=== PATIENT | female | born 1945 | race Caucasian/White ===

== ENCOUNTER 2019-05-03 14:37 | Outpatient (CLI) | payer MEDICARE, OTHER, SELFPAY ==
--- NOTE | 2019-05-03 15:00 | US_ITS ---
WS: [id number] RENAL ULTRASOUND HISTORY: CHRONIC KIDNEY DISEASE STAGE 3 COMPARISON: 01/14/2019 TECHNIQUE: 2-D and color Doppler imaging of the kidney submitted. Right kidney: 12.8 cm x 4.5 cm x 6.7 cm. Normal size kidney. No significant cortical thinning. Exophytic low-attenuation mass from the lower p ole measures 2.2 x 2.1 x 3.5 cm. Probably a cyst but limited due to body habitus. Similar to the prio r study. Left kidney: 8.6 cm x 5.3 cm x 5.4 cm. Mild atrophy of the LEFT kidney with poor corticomedullary differentiation. Increased echogenicity of the kidney. Kidney is measuring smaller in size and the prior study. This may be technical and relat ed to the body habitus and poorly visualized kidney. Possible cortical cyst in the mid kidney measuri ng 1.3 x 1.8 x 1.8 cm. Aorta: Poorly visualized. Urinary Bladder: Normal distention. US/US renal BI* [id number] IMPRESSION: 1. Technically limited evaluation of the kidneys due to body habitus. 2. No hydronephrosis. 3. Mild atrophy of the LEFT kidney versus incomplete visualization of the enti re kidney. Atrophy appears new since 01/14/2019 therefore I suspect this may be due to difficulty obtaining accurate measurements. Alternatively mild chronic medical renal disease. 4. Bilateral renal masses likely cysts. No change.
== END 2019-05-03 14:38 | disposition home or self-care (01) ==
LOC: RAD 14:44
PROVIDERS: Family Provider Family Medicine; PCP Family Medicine; Visit Provider Internal Medicine Nephrology
DX: N18.3 Chronic kidney disease, stage 3 (moderate) (principal); N28.89 Other specified disorders of kidney and ureter; N26.1 Atrophy of kidney (terminal)
CPT/HCPCS: 76770

== ENCOUNTER 2020-02-11 13:25 | Outpatient (CLI) | payer MEDICARE, OTHER, SELFPAY ==
--- NOTE | 2020-02-11 13:42 | CT_ITS ---
WS: [id number] CT scan of the chest With IV contrast, CT scan of the abdomen and pelvis with IV contrast and oral contrast. Additional two-dimensional coronal and sagittal reconstruction was performed. 02/11/2020 Clinical Data: ENDOMETRIAL ADENOCARCINOMA Comparison: None. DLP: 2544.[address] scans at [facility] use at least one of these dose optimization techniques: automat ed exposure control; mA and/or kV adjustment per patient size (includes targeted exams where dose is matched to clinical indication); or iterative reconstruction. Findings: Chest: No nodules, masses or effusions are seen. The heart size is normal with no pericardial effusion. No pneumonia or pneumothorax is seen. The pulmonary vascularity is normal. The pulmonary arterial system and thoracic aorta demonstra te no abnormalities or dilatations. There is no axillary or significant mediastinal adenopathy. Moderate degenerative change of the thora cic vertebral bodies is present and there is no bony metastatic disease. Abdomen/pelvis: The liver, spleen, adrenal glands and pancreas are normal. There are clips in the gallbladder fossa f rom a cholecystectomy. The kidneys show equal bilateral contrast excretion with normal bilateral renal cortical cysts. No hy dronephrosis, masses or renal calculi are seen.. The abdominal aorta is normal in size. No appendicitis or diverticulitis is seen. The stomach shows numerous clips from gastric bypass surge ry. Oral contrast is in the stomach. Small bowel and colon, and there is no bowel dilatation. No abscess, adenopathy, ascites, mass, obstruction or free air is seen. The bladder is unremarkable. The uterus has fluid within the endometrium. No inguinal hernia is seen. There is minimal osteoarthritis of the lumbar vertebral bodies with degenerative disc narrowing at L5 -S1. No metastatic disease is seen. CT/CT chest abd pel w con* Impression: 1. Negative for acute intra-abdominal abnormalities. 2. Endometrium of the uterus shows fluid.
[2020-02-11] MEDS: iohexol 300 mg/mL 50 mL Btl PO (13:57)
[2020-02-11 14:59] LABS: Blood Urea Nitrogen 28 mg/dL (8-23)
== END 2020-02-11 13:26 | disposition home or self-care (01) ==
LOC: RADWPI 13:32
PROVIDERS: Radiology Diagnostic Radiology; PCP Family Medicine; Visit Provider Family Medicine
DX: C54.1 Malignant neoplasm of endometrium (principal)
CPT/HCPCS: 71260; 74177; 82565; 84520; Q9967

== ENCOUNTER 2020-04-01 17:43 | Emergency (ER) | payer MEDICARE, OTHER, SELFPAY ==
[2020-04-01 17:47] VITALS: BP 117/74; PULSE 76; RESP 18; TEMP 35.7; O2SAT 96; BMI 48.0
[2020-04-01 20:49] LABS: Basophils % 0.1 %; Eosinophils # 0.2 10^3/uL (0.0-0.8); Eosinophils % 1.3 %; Hemoglobin 13.4 g/dL (11.5-15.3); Lymphocytes # 1.6 10^3/uL (0.8-4.8); Lymphocytes % 11.6 %; Mean Corpuscular HGB Conc 32.7 g/dL (30.0-36.0); Mean Corpuscular Hemoglobin 30.7 pg (28.0-34.0); Mean Platelet Volume 10.2 fL (7.4-10.4); Monocytes # 0.8 10^3/uL (0.2-0.9); Monocytes % 6.1 %; Neutrophils # 10.92 10^3/uL (1.8-7.7); Neutrophils % 80.5 %; Nucleated Red Blood Cells % 0 %; Platelet Count 201 10^3/cmm (130-400); Red Blood Count 4.36 10^6/uL (4.1-5.3); Red Cell Distribution Width 12.7 % (12.1-15.1); White Blood Count 13.6 10^3/uL (4.0-10.0)
[2020-04-01 21:10] LABS: Alanine Aminotransferase 70 U/L (0-33); Albumin Level 3.4 g/dL (3.5-5.2); Alkaline Phosphatase 90 IU/L (35-105); Anion Gap 11.6 (5-19); Aspartate Amino Transferase 59 U/L (0-32); Blood Urea Nitrogen 43 mg/dL (8-23); Calcium 8.9 mg/dL (8.5-10.5); Carbon Dioxide 28 mmol/L (22-29); Chloride 98 mmol/L (98-107); Glucose 162 mg/dL (65-115); Lipase 12 U/L (13-60); Osmolality Calculated 292 mOsm/kg (285-295); Potassium 3.6 mmol/L (3.5-5.1); Sodium 134 mmol/L (136-145); Total Bilirubin 0.7 mg/dL (0.15-1.2); Total Protein 6.4 g/dL (6.6-8.7)
[2020-04-01 22:53] VITALS: BP 157/97; PULSE 75; RESP 16; TEMP 36.6; O2SAT 95
--- NOTE | 2020-04-01 22:53 | CTR_ITS ---
PROCEDURE INFORMATION: Exam: CT Abdomen And Pelvis With Contrast Exam date and time: 04/01/2020 11:30 PM Age: 74 years old Clinical indication: Abdominal pain; Localized; Right lower quadrant (rlq); Prior surgery; Surgery date: 3-7 days post-operative; Surgery type: Hyst 03/28, appy, stomach, gb; Patient HX: C/O rlq pain w constipation and nausea S/P hyst 03/28 TECHNIQUE: Imaging protocol: Computed tomography of the abdomen and pelvis with intravenous contrast. Radiation optimization: All CT scans at this facility use at least one of these dose optimization techniques: automated exposure control; mA and/or kV adjustment per patient size (includes targeted exams where dose is matched to clinical indication); or iterative reconstruction. Contrast material: VISI 320; Contrast volume: 95 ml; Contrast route: INTRAVENOUS (IV); COMPARISON: CT chest abd pel w con* 02/11/2020 3:05 PM RADIATION DOSE METRICS: Total DLP (mGy-cm): 1910.6 FINDINGS: Liver: Normal. No mass. Gallbladder and bile ducts: Status post cholecystectomy. Pancreas: Normal. No ductal dilation. Spleen: Normal. No splenomegaly. Adrenal glands: Normal. No mass. Kidneys and ureters: There are stable bilateral renal cysts present, the largest seen in the lower pole of the right kidney measuring 2.3 cm. Stomach and bowel: Status post gastric surgery. There are some hazy opacity seen surrounding the distal descending and proximal sigmoid colon, findings could represent colitis. Appendix: Status post appendectomy. Intraperitoneal space: There is some free intra-abdominal air present compatible with postoperative change. Vasculature: Unremarkable. No abdominal aortic aneurysm. Lymph nodes: Unremarkable. No enlarged lymph nodes. Urinary bladder: Unremarkable as visualized. Reproductive: The patient is status post recent hysterectomy. Bones/joints: Unremarkable. No acute fracture. Soft tissues: There are diffuse strandy and hazy opacities and gas densities seen in the subcutaneous fat and fascia of the lower anterior abdominal wall compatible with postoperative changes. Moderate subcutaneous emphysema seen within the left anterior , lateral and posterior subcutaneous tissues compatible with postoperative change. CT/CT abdomen pelvis w con* [id number] IMPRESSION: 1. Strandy and hazy opacities are seen in the subcutaneous fat and fascia of the anterior abdominal wall on the right with scattered at gas density seen. Prominent subcutaneous emphysema seen in the left anterior, lateral posterior abdominal wall compatible with postoperative changes as well. 2. There is some free intra-abdominal air present compatible with postoperative change. 3. Hazy opacities are seen surrounding the distal descending and proximal sigmoid colon, findings could represent mild colitis. 4. There are stable bilateral renal cysts, the largest is seen in the right kidney measuring 2.3 cm. No further workup needed. Radiation Dose CTDIVOL = (mGy): DLP = 1910.6 (mGy-cm)
[2020-04-01 22:58] VITALS: BP 157/97; PULSE 75; RESP 18; O2SAT 94
--- NOTE | 2020-04-01 23:02 | W.ED.ABDPA2 ---
HPI - Abdominal Pain General: Chief Complaint: Abdominal Pain Stated Complaint: BOWEL MOVEMENT ISSUES, POST-SURGERY RELATED Time Seen by Provider: 04/01/20 22:47 Source: patient Mode of arrival: ambulatory Limitations: no limitations History of Present Illness: HPI narrative: Mrs. Garcia is a very nice 74-year-old female who comes in complaining of abdominal pain. She had a hysterectomy performed on the of this month by Dr. Martínez at [facility] in [place]. Since that time she has only had 1 small bowel movement. She is nauseated and feels like she can throw up but does not. She denies any fevers or chills. She denies any urinary symptoms. She denies any other complaints or concerns. She unaware of anything that makes her symptoms better or worse. She states that she just feels constipated. She is afraid that this may be a complication of her pain medications that she is taking. She states otherwise she is feeling well without fever or chills. She has not had any urinary symptoms. She states she is feeling fine otherwise. Associated Symptoms: Reports nausea; Denies chills, coffee ground emesis, constipation, GI cramping, diarrhea, dysuria, fever(s), heartburn, hematochezia, hematuria, hematemesis, melena, syncope and vomiting Review of Systems Const: Denies: fever(s), chills, body aches, fatigue, malaise or diaphoresis Eyes: Denies: change in vision, blurry vision, photophobia, eye discomfort, eye discharge, eye redness or yellow eyes ENMT: Denies: throat pain, odynophagia, hoarseness, swelling of lips/tongue, ear or mastoid pain, ear discharge, change in hearing or nasal discharge Card: Denies: chest pain, palpitations, irregular heart rhythm, edema, lightheadedness, syncope, pre-syncope, dyspnea on exertion or orthopnea Resp: Denies: dyspnea, productive cough, non-productive cough, wheezing, hemoptysis or chest congestion GI: Reports: abdominal pain and nausea; Denies: vomiting, hematemesis, coffee ground emesis, heartburn, diarrhea, constipation, GI cramping, hematochezia or melena : Denies: flank pain, dysuria, urinary frequency, urinary urgency or hematuria Musc: Denies: neck pain, back pain, extremity pain, extremity swelling, joint pain, joint swelling, joint redness, joint warmth or joint stiffness Skin/Breast: Denies: rash, pruritus, erythema, skin pain or skin tenderness Neuro: Denies: headache(s), numbness in extremities, weakness in extremities, sensory changes, lack of coordination, difficulty walking, dizziness, vertigo, confusion, Slurred speech present or seizure-like activity Pedrito/Lymph: Denies: easy bruising, easy bleeding, petechiae, purpura or enlarged lymph nodes All/Imm: Denies: urticaria, throat swelling, tongue swelling, facial swelling or acute wheezing Physical Exam Const: COMMON NORMALS: no acute distress, patient oriented x3, no limitations and alert GENERAL APPEARANCE: cooperative HENMT: COMMON NORMALS: normocephalic, atraumatic, external ears normal, EAC's normal and Normal external nose present HEAD & SCALP: normal to inspection, normocephalic and atraumatic FACE & SINUS: normal facial exam and face symmetric NOSE: Normal external nose present and Normal nares present EXTERNAL EAR: Yes external ears normal EXTERNAL AUDITORY CANAL: EAC's normal MOUTH: Normal oral and palatal mucosa present, lip normal and tongue normal Eye: COMMON NORMALS: Equal, round and reactive pupils present and conjunctivae normal GENERAL EYE: appearance normal, both eyes and all related structures ALIGNMENT: Yes alignment normal PERIORBITAL: periorbital findings normal EYELID: eyelids normal CONJUNCTIVA: Yes conjunctivae normal SCLERA: sclerae normal PUPIL: Yes Equal, round and reactive pupils present Neck/C-Spine: COMMON NORMALS: full ROM, no lymphadenopathy, supple, no meningeal signs and no JVD GENERAL: Yes normal visual inspection and Yes trachea midline Chest: COMMONS NORMALS: normal inspection of the chest and normal palpation of entire chest wall Resp: COMMON NORMALS: normal respiratory effort, No retractions, No use of accessory muscles and clear to auscultation bilaterally EFFORT & INSPECTION: Yes able to speak in complete sentences and Yes symmetric chest movement AUSCULTATION: clear to auscultation bilaterally, no crackles, no rales, no rhonchi and no wheezes Cardio: COMMON NORMALS: no JVD, regular rate, regular rhythm, S1 normal heart sound present and S2 normal heart sound present RATE: regular rate RHYTHM: regular rhythm HEART SOUNDS: S1 normal heart sound present, S2 normal heart sound present, no click, no gallops, no murmurs and no rubs GI: COMMON NORMALS: Soft to palpation and No hepatosplenomegaly present PALPATION: Yes Soft to palpation, Yes Tenderness to palpation present (GI) (Moderate diffusely), No Guarding due to palpation present (GI), No Rigid due to palpation, Yes No hepatosplenomegaly present, No Hernia present, No Palpable mass present and No Pulsatile mass present : COMMON NORMALS: Yes no CVA tenderness BLADDER/KIDNEY EXAM: Yes no CVA tenderness EXTERNAL FEMALE EXAM: No Hernia present Back/Pelvis: COMMON NORMALS: no CVA tenderness, thoracic and lumbar spine normal to inspection, no thoracic nor lumbar tenderness and thoraco-lumbar ROM normal Extremity: COMMON NORMALS: normal to inspection, full ROM, capillary refill normal, no joint enlargement, no clubbing, cyanosis or edema and no calf tenderness Neuro: COMMON NORMALS: patient oriented x3, CN's II-XII intact bilaterally, moves all extremities, no focal motor deficits and no sensory deficits noted SENSORIUM/ORIENTATION: Yes alert MENINGEAL SIGNS: Yes no meningeal signs SPEECH: speech normal Psych: COMMON NORMALS: mental status grossly normal, Normal thought process present, cooperative, normal affect, speech normal and activity/motor behavior normal SPEECH: Yes normal speech THOUGHT PROCESS: Normal thought process present Skin: COMMON NORMALS: no rashes or lesions noted, turgor normal, no jaundice, no petechiae and no mottling GENERAL SKIN EXAM: no rashes or lesions noted and turgor normal Course Vital Signs: Vital signs: Vital Signs Temperature 97.9 F 04/01/20 22:53 Pulse Rate 80 04/02/20 03:02 Respiratory Rate 16 04/02/20 03:02 Blood Pressure 134/51 04/02/20 03:02 Pulse Oximetry 98 04/02/20 03:02 MDM - Abdominal Pain MDM Narrative: Medical decision making narrative: Mrs. Garcia is a nice 74-year-old female who comes in complaining primarily of constipation. Her CT scan shows diffuse gas in the soft tissues and intra-abdominal he. This is consistent with previous surgery. There is no sign of necrotizing fasciitis. The patient's abdominal exam is benign. I did review the case with Dr. Gonzales, on-call for Dr. Martínez her partner. She states that all the findings as I have reviewed with her do not sound like an acute infection but likely just postoperative changes. She recommends treating the patient with antibiotics for colitis. We will go ahead and do this but nonetheless I have offered to keep the patient in the hospital to help with her bowels and to treat her colitis but she declines. She states she is feeling better and would like to go home. She asked something for a laxative but would like to go home. I did inform the patient about a severe infection like necrotizing fasciitis and although unlikely it is still a possibility but despite this risk the patient declines and would like to be discharged. She understands that she is welcome to return at any time. Lab Data: Attestation: I reviewed the patient's lab results. Labs: Lab Results 04/01/20 04/01/20 04/02/20 Range/Units 20:38 20:38 00:15 WBC 13.6 H (4.0-10.0) 10^3/ uL RBC 4.36 (4.1-5.3) 10^6/u L Hgb 13.4 (11.5-15.3) g/dL Hct 41.0 (37.0-47.0) % MCV 94.0 (81-99) fL MCH 30.7 (28.0-34.0) pg MCHC 32.7 (30.0-36.0) g/dL RDW 12.7 (12.1-15.1) % Plt Count 201 (130-400) 10^3/c mm MPV 10.2 (7.4-10.4) fL Neut % (Auto) 80.5 % Lymph % (Auto) 11.6 % Hughes % (Auto) 6.1 % Eos % (Auto) 1.3 % Baso % (Auto) 0.1 % Neut # (Auto) 10.92 H (1.8-7.7) 10^3/u L Lymph # (Auto) 1.6 (0.8-4.8) 10^3/u L Hughes # (Auto) 0.8 (0.2-0.9) 10^3/u L Eos # (Auto) 0.2 (0.0-0.8) 10^3/u L Baso # (Auto) 0.0 (0.0-0.1) 10^3/u L Nucleated RBC % (a uto) 0 % Nucleated RBCs # 0.0 /100WBC Sodium 134 L (136-145) mmol/L Potassium 3.6 (3.5-5.1) mmol/L Chloride 98 (98-107) mmol/L Carbon Dioxide 28 (22-29) mmol/L Anion Gap 11.6 (5-19) BUN 43 H (8-23) mg/dL Creatinine 1.4 H (0.5-0.9) mg/dL GFR Calculation Not Reportable Glucose 162 H (65-115) mg/dL Calculated Osmolal ity 292 (285-295) mOsm/k g Lactic Acid 0.8 (0.5-2.2) mmol/L Calcium 8.9 (8.5-10.5) mg/dL Total Bilirubin 0.7 (0.15-1.2) mg/dL AST 59 H (0-32) U/L ALT 70 H (0-33) U/L Alkaline Phosphata se 90 (35-105) IU/L Total Protein 6.4 L (6.6-8.7) g/dL Albumin 3.4 L (3.5-5.2) g/dL Globulin 3.0 (1.3-4.6) g/dL Lipase 12 L (13-60) U/L Urine Color (Yellow) Urine Appearance (CLEAR) Urine pH (5-7) Ur Specific Gravit y (1.005-1.030) Urine Protein (Negative) Urine Glucose (UA) (Normal) Urine Ketones (Negative) Urine Blood (Negative) Urine Nitrate (Negative) Urine Bilirubin (Negative) Urine Urobilinogen (Negative) mg/dL Ur Leukocyte Charity ase (Negative) Urine RBC (0-2) /hpf Urine WBC (0-5) /hpf Ur Squamous Epith Cells (0-5) /hpf Amorphous Sediment Urine Bacteria (NONE) /hpf 04/02/20 Range/Units 00:47 WBC (4.0-10.0) 10^3/ uL RBC (4.1-5.3) 10^6/u L Hgb (11.5-15.3) g/dL Hct (37.0-47.0) % MCV (81-99) fL MCH (28.0-34.0) pg MCHC (30.0-36.0) g/dL RDW (12.1-15.1) % Plt Count (130-400) 10^3/c mm MPV (7.4-10.4) fL Neut % (Auto) % Lymph % (Auto) % Hughes % (Auto) % Eos % (Auto) % Baso % (Auto) % Neut # (Auto) (1.8-7.7) 10^3/u L Lymph # (Auto) (0.8-4.8) 10^3/u L Hughes # (Auto) (0.2-0.9) 10^3/u L Eos # (Auto) (0.0-0.8) 10^3/u L Baso # (Auto) (0.0-0.1) 10^3/u L Nucleated RBC % (a uto) % Nucleated RBCs # /100WBC Sodium (136-145) mmol/L Potassium (3.5-5.1) mmol/L Chloride (98-107) mmol/L Carbon Dioxide (22-29) mmol/L Anion Gap (5-19) BUN (8-23) mg/dL Creatinine (0.5-0.9) mg/dL GFR Calculation Glucose (65-115) mg/dL Calculated Osmolal ity (285-295) mOsm/k g Lactic Acid (0.5-2.2) mmol/L Calcium (8.5-10.5) mg/dL Total Bilirubin (0.15-1.2) mg/dL AST (0-32) U/L ALT (0-33) U/L Alkaline Phosphata se (35-105) IU/L Total Protein (6.6-8.7) g/dL Albumin (3.5-5.2) g/dL Globulin (1.3-4.6) g/dL Lipase (13-60) U/L Urine Color Yellow (Yellow) Urine Appearance Clear (CLEAR) Urine pH 5 (5-7) Ur Specific Gravit y 1.000 L (1.005-1.030) Urine Protein Neg (Negative) Urine Glucose (UA) Norm (Normal) Urine Ketones Negative (Negative) Urine Blood 2+ H (Negative) Urine Nitrate Negative (Negative) Urine Bilirubin Neg (Negative) Urine Urobilinogen Norm (Negative) mg/dL Ur Leukocyte Charity ase Trace H (Negative) Urine RBC 0-4 H (0-2) /hpf Urine WBC 0-4 H (0-5) /hpf Ur Squamous Epith Cells 0-4 H (0-5) /hpf Amorphous Sediment Not Reportable Urine Bacteria Trace (NONE) /hpf Discharge Plan Discharge Patient Disposition: Home Clinical Impression: Colitis Condition: Stable Prescriptions: New cefdinir 300 mg capsule 300 mg PO Q12H 10 Days Qty: 20 RF: 0 Flagyl 500 mg tablet 500 mg PO TID 10 Days Qty: 30 RF: 0 Zofran 4 mg tablet 4 mg PO Q6H PRN (Reason: nausea and vomiting) Qty: 20 RF: 0 lactulose 10 gram/15 mL (15 mL) solution 10 g PO DAILY PRN (Reason: constipation) Qty: 600 RF: 0 Discharge Orders: Discharge ED (Routine); Ordered 04/02/20 Ordered By: Jo Méndez Referrals: Robert Perez MD [Primary Care Provider] - Discharge Diet: Advance as tolerated and Clear Liquid Discharge Activity: Increase activity as tolerated Patient Instructions: Infectious Colitis (ED) Activity Restrictions/Additional Instructions: Please return to the ER immediately for any of the signs or symptoms listed on your discharge instruction sheets, worsening/changing of your symptoms, you are not getting better as quickly as expected, or for ANY other cause or concerns. You have been offered further evaluation and care here for the abnormal CT findings but you have declined to stay. If your symptoms worsen at all, you develop vomiting, you develop a fever or you change your mind you are more than welcome to return at any time for further evaluation and care. Coding Level of Care Code ED [employer] for [employer] Fwd Exam Comprehensive
[2020-04-01] MEDS: metoclopramide 5 mg/mL SDV 2 mL 10 MG IV (23:27)
[2020-04-01 23:28] VITALS: RESP 16
[2020-04-01] MEDS: morphine 4 mg/mL SDV 1 mL IVP (23:28)
[2020-04-01] MEDS: iodixanol 320 mg/mL 100mL Btl IV (23:46)
[2020-04-02 00:01] VITALS: BP 91/76; PULSE 75; RESP 16; O2SAT 93
[2020-04-02 00:36] VITALS: BP 110/68; PULSE 76; RESP 16; O2SAT 95
[2020-04-02 00:52] LABS: Lactic Sepsis W/Reflex 0.8 mmol/L (0.5-2.2)
[2020-04-02] MEDS: cefTRIAXone 2,000 MG in sodium chloride 0.9% (plus) 50 ML 100 MG IV (00:55)
[2020-04-02 01:38] LABS: Add Urine Microscopic? YES; Bilirubin Urine Neg (Negative); Blood Urine 2+ (Negative); Glucose Urine UA Norm (Normal); Ketones Urine Negative (Negative); Leukocyte Esterase Urine Trace (Negative); Nitrate Urine Negative (Negative); Protein Urine Neg (Negative); Urine Appearance Clear (CLEAR); Urine Color Yellow (Yellow); Urobilinogen Urine Norm (Negative); pH Urine 5 (5-7)
[2020-04-02 01:41] LABS: Add Urine Culture? No; Bacteria Urine TRACE /hpf; RBC Urine 0-4 /hpf (0-2); Squamous Epithelial Cell Urine 0-4 /hpf (0-5); WBC Urine 0-4 /hpf (0-5)
[2020-04-02] MEDS: metroNIDAZOLE IV 500 MG/100 ML PREMIX 100 MG IV (01:50)
[2020-04-02] MEDS: lactulose oral liq 20 gm/30 mL UDC 10 GM PO (03:01)
[2020-04-02 03:02] VITALS: BP 134/51; PULSE 80; RESP 16; O2SAT 98
== END 2020-04-02 03:03 | disposition home or self-care (01) ==
PROVIDERS: Nurse Practitioner Family; Emergency Provider Emergency Medicine; PCP Family Medicine
DX: K52.9 Noninfective gastroenteritis and colitis, unspecified (principal)
CPT/HCPCS: 12345; 36415; 74177; 80053; 81001; 83605; 83690; 85025; 96365; 96375; 99282; 99284; J0696; J0743; J2270; J2765; Q9967; S0030

== ENCOUNTER 2020-04-20 14:22 | Outpatient (CLI) | payer MEDICARE, OTHER, SELFPAY ==
--- NOTE | 2020-04-20 16:19 | N.ONRAD NP_ITS ---
Radiation Oncology Consultation Patient Name: Archana Garcia Date of : 1945 Date of Service: 04/20/2020 Attending Physician: Julius Sorensen M.D. Archana Garcia was seen in consultation this afternoon at the request of Monica Myers M.D. for consideration of post-operative radiotherapy for the management of her uterine cancer. 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 A transabdominal and transvaginal ultrasonography completed on February 01, 2020 identified an anteverted uterus measuring 9.1 cm and an endometrial thickness of 22.5 mm. 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 A modified radical robotic hysterectomy with bilateral salpingo-oophorectomy and pelvic and retroperitoneal sentinel lymph node mapping/sampling was performed by Antonella Martínez D.O. at [facility] in [place], [place] on April 02, 2020. The pathology report was obtained from the outside hospital (and directly canvassed by me) confirmed a FIGO grade 2 endometrioid carcinoma (myometrial invasion depth of 9 mm with a myometrial thickness of 20 mm) with invasion of the cervical stroma and lymphovascular invasion present. Savery lymph node sampling harvested 3 pelvic lymph nodes without evidence of metastases (FIGO stage II; MMR nuclear expression intact). I reviewed with her the FIGO staging corresponding to her disease (FIGO stage II) and the National Comprehensive Cancer Network Guidelines recommending pelvic radiotherapy and vaginal brachytherapy. I also discussed the classic GOG 99 and PORTEC studies that demonstrated adjuvant pelvic radiotherapy in high-intermediate risk patients with endometrial cancer improved local regional control. PORTEC-2 trial was not characterized because the study did not include patients with cervical stromal invasion, nor was the preliminary results (abstract form only) of GOG 249 that identified an increase in pelvic yeimi failure vaginal cuff and chemotherapy arm versus pelvic radiotherapy alone. I would recommend a five week course of pelvic lymph node radiotherapy followed by vaginal brachytherapy. A computed tomographic radiotherapy planning scan with contrast in the treatment position will be required to identify the clinical tumor volumes. The potential toxicities of pelvic radiotherapy were reviewed. The patient has verbalized understanding would like to proceed as recommended. Signed by: Dr. Julius Sorensen 05/17/2020 9:54:08 AM
== END 2020-04-20 14:23 | disposition home or self-care (01) ==
LOC: ONCMED 14:31
PROVIDERS: PCP Family Medicine; Visit Provider Radiology Radiation Oncology
DX: C54.1 Malignant neoplasm of endometrium (principal)
CPT/HCPCS: 99205

== ENCOUNTER 2020-05-18 08:54 | Outpatient (RCR) | payer MEDICARE, OTHER, SELFPAY ==
--- NOTE | 2020-05-17 | CT_ITS ---
Radiation Therapy Planning CT images; total exam DLP: 1777.65 mGy-cm MTDD
== END 2020-05-25 11:00 | disposition home or self-care (01) ==
LOC: ONCMED 08:54
PROVIDERS: PCP Family Medicine; Visit Provider Radiology Radiation Oncology
DX: Z51.0 Encounter for antineoplastic radiation therapy (principal); C54.1 Malignant neoplasm of endometrium
CPT/HCPCS: 77300; 77301; 77334; 77338

== ENCOUNTER 2020-05-25 11:48 | Outpatient (CLI) | payer MEDICARE, OTHER, SELFPAY ==
--- NOTE | 2020-05-25 11:52 | MM_ITS ---
WS: [id number] BILATERAL SCREENING DIGITAL MAMMOGRAM WITH CAD HISTORY: SCREENING COMPARISON: 11/26/2017 Bilateral CC and MLO views submitted. Computer aided detection analyzed. Breast composition: There are scattered areas of fibroglandular density. No suspicious masses, microc alcifications or architectural distortion. Benign calcifications in each breast. Benign lymph node la teral LEFT breast. MM/[place] [id number] IMPRESSION: BI-RADS: 2-Benign FOLLOW UP: 1 Year Follow-up
== END 2020-05-25 11:49 | disposition home or self-care (01) ==
LOC: RADSHAW 11:49
PROVIDERS: PCP Family Medicine; Visit Provider Radiology Radiation Oncology
DX: Z12.31 Encounter for screening mammogram for malignant neoplasm of breast (principal)
CPT/HCPCS: 77067

== ENCOUNTER 2020-06-02 05:48 | Outpatient (RCR) | payer MEDICARE, OTHER, SELFPAY ==
--- NOTE | 2020-05-29 11:55 | ONCRAD TMN_ITS ---
Radiation Oncology Treatment Management Note Patient Name: Archana Garcia Date of : 1945 Date of Service: 05/29/2020 Attending Physician: Julius Sorensen M.D. 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 A modified radical robotic hysterectomy with bilateral salpingo-oophorectomy and pelvic/retroperitoneal sentinel lymph node mapping was performed in March 2020. The patient has received 1.8 Gy of a prescribed 45 Rao with an intensity modulated radiotherapy plan utilizing a step and shoot treatment technique. Tnno-[id number] brachytherapy will be administered subsequent to pelvic radiotherapy. Upon review of systems, she denied any gastrointestinal complaints related to radiotherapy. On physical examination, the patient weighed 282 lbs. Her temperature was 97.3 ???F with a blood pressure of 108/69 mmHg. Her pulse was 81 bpm and her respiratory rate was 18. No erythema within the treatment villagomez. Continue pelvic radiotherapy as prescribed. Signed by: Dr. Julius Sorensen 05/29/2020 11:55:00 AM
== END 2020-06-04 23:59 | disposition home or self-care (01) ==
LOC: ONCMED 05:48
PROVIDERS: PCP Family Medicine; Visit Provider Radiology Radiation Oncology
DX: Z51.0 Encounter for antineoplastic radiation therapy (principal); C54.1 Malignant neoplasm of endometrium
CPT/HCPCS: 77386

== ENCOUNTER 2020-06-27 05:43 | Outpatient (RCR) | payer MEDICARE, OTHER, SELFPAY ==
--- NOTE | 2020-06-06 15:44 | ONCRAD TMN_ITS ---
Radiation Oncology Weekly Treatment Management Patient: Jose Powers MR#: [id number] : 1945> Attending Physician: Dr. Angel May Date of Service: 06/06/2020 Referring Physician(s) : Diagnosis: C54.1 - Malignant neoplasm of endometrium, Diagnosed 01/2020 (Active) Stage II, II Radiotherapy to date: Course: Uterine 2020, Treatment Site: Uterine Ca, Ref. ID: [id number], Energy: 15X, Dose/Fx (cGy): 180, #Fx: , Dose Correction (cGy): 0, Total Dose (cGy): 1,260, Start Date: 05/29/2020, Elapsed Days: 8 Reason for visit: The patient is being seen today as part of their regularly scheduled weekly on treatment visits to assess for acute toxicities from radiotherapy. Review of Systems: Nauseated today with no emesis. She really tries to dring a lot of water which may be causing some of the nausea. She has ongoing urinary frequency with n burning. Significant diarrhea today 8 x alrady. No fever or chills. Vital Signs: Performed on 06/06/2020 3:17 PM BMI - 67.897 kg/m2 (high), Height - 54.00 in, Weight - 281.6 lbs, Temperature - 97.2 f, Pulse - 66, Respiration - 20, O2 Sat - 96 %, Pain - 0 and BP - 126/ 59 mm(hg)(/low). Physical Exam: omitted. Imaging: Radiation therapy imaging related to accurate target localization (i.e. KV, MV and CBCT) was reviewed. Appropriate changes, if any, were made to ensure treatment accuracy. Plan: Fair tolerance of RT. Maintain good hydration at a lower more tolerable level. Reduce fiber in diet add Imodium for control of diarrhea. Monitor status while on treatment for the remainder of the week. Signed by: Dr. Angel May 06/06/2020 3:44:33 PM
--- NOTE | 2020-06-14 15:40 | ONCRAD TMN_ITS ---
Radiation Oncology Treatment Management Note Patient Name: Archana Garcia Date of : 1945 Date of Service: 06/14/2020 Attending Physician: Julius Sorensen M.D. 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 A modified radical robotic hysterectomy with bilateral salpingo-oophorectomy and pelvic/retroperitoneal sentinel lymph node mapping was performed in March 2020. The patient has received 21.6 Gy of a prescribed 45 Rao with an intensity modulated radiotherapy plan utilizing a step and shoot treatment technique. [id number] brachytherapy will be administered subsequent to pelvic radiotherapy. Upon review of systems, she continues to have diarrhea and new onset dysuria. On physical examination, the patient weighed 282 lbs. Her temperature was 97.3 ???F with a blood pressure of 108/69 mmHg. Her pulse was 81 bpm and her respiratory rate was 18. No erythema within the treatment villagomez. Continue pelvic radiotherapy as prescribed. I will obtain a urinalysis because of the UTI symptoms and prescribe Lomotil for diarrhea. Signed by: Dr. Julius Sorensen 06/14/2020 3:38:26 PM
[2020-06-15 19:30] LABS: Add Urine Culture? No; Bacteria Urine 1+ /hpf; Bilirubin Urine Neg (Negative); Blood Urine Neg (Negative); Glucose Urine UA Norm (Normal); Ketones Urine Negative (Negative); Leukocyte Esterase Urine Negative (Negative); Nitrate Urine Negative (Negative); Protein Urine Neg (Negative); RBC Urine 0-4 /hpf (0-2); Specific Gravity, Urine 1.015 (1.005-1.030); Squamous Epithelial Cell Urine 25-40 /hpf (0-5); Urine Appearance Clear (CLEAR); Urine Color Yellow (Yellow); Urobilinogen Urine Norm (Negative); pH Urine 5 (5-7)
--- NOTE | 2020-06-20 15:34 | ONCRAD TMN_ITS ---
Radiation Oncology Treatment Management Note Patient Name: Archana Garcia Date of : 1945 Date of Service: 06/20/2020 Attending Physician: Julius Sorensen M.D. 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 A modified radical robotic hysterectomy with bilateral salpingo-oophorectomy and pelvic/retroperitoneal sentinel lymph node mapping was performed in March 2020. The patient has received 27 Gy of a prescribed 45 Rao with an intensity modulated radiotherapy plan utilizing a step and shoot treatment technique. Kpuc-jikp-[id number] brachytherapy has been completed. Upon review of systems, she described vaginal itching without discharge. On physical examination, the patient weighed 276 lbs. Her temperature was 97.3???F with a blood pressure of 105/54 mmHg. Her pulse was 58 bpm and her respiratory rate was 18. Perianal erythema was noted. Vaginal exam revealed pallor of the mucosa. No discharge present. Continue pelvic radiotherapy as planned. I will prescribe Metronidazole vaginal applicator for BV. Signed by: Dr. Julius Sorensen 06/20/2020 3:33:29 PM
--- NOTE | 2020-06-27 15:38 | ONCRAD TMN_ITS ---
Radiation Oncology Treatment Management Note Patient Name: Archana Garcia Date of : 1945 Date of Service: 06/27/2020 Attending Physician: Julius Sorensen M.D. 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 A modified radical robotic hysterectomy with bilateral salpingo-oophorectomy and pelvic/retroperitoneal sentinel lymph node mapping was performed in March 2020. The patient has received 36 Gy of a prescribed 45 Rao with an intensity modulated radiotherapy plan utilizing a step and shoot treatment technique. Itlq-gfam-[id number] brachytherapy has been completed. Upon review of systems, she described persistent diarrhea (failed Lomotil). On physical examination, the patient weighed 273 lbs. Her temperature was 97.6???F with a blood pressure of 110/58 mmHg. Her pulse was 62 bpm and her respiratory rate was 20. Perianal erythema was noted. Radiation therapy will be held in account of grade III diarrhea. Signed by: Dr. Julius Sorensen 06/27/2020 3:36:48 PM
== END 2020-06-28 21:00 | disposition home or self-care (01) ==
LOC: ONCMED 05:43
PROVIDERS: PCP Family Medicine; Visit Provider Radiology Radiation Oncology
DX: Z51.0 Encounter for antineoplastic radiation therapy (principal); C54.1 Malignant neoplasm of endometrium
CPT/HCPCS: 77336; 77386; 81001

== ENCOUNTER 2020-06-28 21:16 | Emergency (ER) | payer MEDICARE, OTHER, SELFPAY ==
[2020-06-28 21:23] VITALS: BP 155/64; PULSE 76; RESP 18; TEMP 36.8; O2SAT 96; BMI 46.3
[2020-06-28 21:39] LABS: Basophils % 0.3 %; Eosinophils # 0.1 10^3/uL (0.0-0.8); Hematocrit 37.5 % (37.0-47.0); Hemoglobin 13.1 g/dL (11.5-15.3); Lymphocytes # 0.4 10^3/uL (0.8-4.8); Lymphocytes % 4.2 %; Mean Corpuscular HGB Conc 34.9 g/dL (30.0-36.0); Mean Corpuscular Hemoglobin 31.6 pg (28.0-34.0); Mean Corpuscular Volume 90.4 fL (81-99); Mean Platelet Volume 9.7 fL (7.4-10.4); Monocytes # 0.8 10^3/uL (0.2-0.9); Monocytes % 8.8 %; Neutrophils # 7.87 10^3/uL (1.8-7.7); Neutrophils % 85.4 %; Nucleated Red Blood Cells % 0 %; Platelet Count 174 10^3/cmm (130-400); Red Blood Count 4.15 10^6/uL (4.1-5.3); Red Cell Distribution Width 12.4 % (12.1-15.1); White Blood Count 9.2 10^3/uL (4.0-10.0)
[2020-06-28] MEDS: ondansetron 2 mg/ML SDV 2 mL 4 MG IVP (21:52)
[2020-06-28 21:53] VITALS: RESP 20
[2020-06-28 21:53] LABS: Alanine Aminotransferase 14 U/L (0-33); Albumin Level 3.4 g/dL (3.5-5.2); Alkaline Phosphatase 55 IU/L (35-105); Anion Gap 14.2 (5-19); Aspartate Amino Transferase 17 U/L (0-32); Blood Urea Nitrogen 22 mg/dL (8-23); Calcium 8.6 mg/dL (8.5-10.5); Carbon Dioxide 23 mmol/L (22-29); Chloride 102 mmol/L (98-107); Globulin 3.2 g/dL (1.3-4.6); Glucose 136 mg/dL (65-115); Lipase 12 U/L (13-60); Magnesium 1.3 mg/dL (1.7-2.3); Osmolality Calculated 287 mOsm/kg (285-295); Potassium 3.2 mmol/L (3.5-5.1); Sodium 136 mmol/L (136-145); Total Bilirubin 0.9 mg/dL (0.15-1.2); Total Protein 6.6 g/dL (6.6-8.7)
[2020-06-28] MEDS: sodium chloride 0.9% 1,000 ML 999 ML IV (21:53)
[2020-06-28] MEDS: morphine 4 mg/mL SDV 1 mL IVP (21:53)
--- NOTE | 2020-06-28 23:23 | W.ED.NAVMDI ---
HPI - Nausea/Vomiting/Diarrhea General: Chief complaint: Nausea/Vomiting/Diarrhea Stated complaint: N/V, SEVERE ABD CRAMP, WEAK, SENT BY DR OWUSU Time Seen by Provider: 06/28/20 21:23 Source: patient and family Mode of arrival: wheelchair Limitations: physical limitation History of Present Illness: HPI Narrative: 74 yo female sent by Dr. Owusu with N/V/D. 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 She states she has been having cramping in her belly as well. She states this started with N/V but started having diarrhea today as well. MD elicited complaint: nausea, vomiting, diarrhea and abdominal pain Associated nausea: Yes Associated symtoms: Reports fatigue and nausea; Denies altered mental status, anxiety, bloating, chest pain, diaphoresis, dizziness, dysuria, headache(s), malaise, palpitations or syncope Review of Systems Const: Reports: body aches, change in appetite and fatigue; Denies: fever(s), chills, change in weight, malaise, night sweats or diaphoresis Card: Reports: dyspnea on exertion; Denies: chest pain, palpitations, irregular heart rhythm, edema, swelling of feet/ankles, lightheadedness, syncope, orthopnea, leg pain with exertion or acrocyanosis Resp: Denies: dyspnea, productive cough, wheezing, stridor, pain on inspiration, change in phlegm color, hemoptysis or chest congestion GI: Reports: abdominal pain, nausea, vomiting, diarrhea and GI cramping; Denies: hematemesis, coffee ground emesis, dysphagia, heartburn, early satiety, constipation or bloating : Reports: oliguria; Denies: flank pain, difficulty voiding, dysuria, urinary frequency, urinary urgency or urinary hesitancy Musc: Denies: neck pain, back pain or extremity pain Neuro: Reports: difficulty walking; Denies: headache(s), numbness in extremities, weakness in extremities, lack of coordination, frequent falls, dizziness, vertigo, confusion, behavioral changes, Slurred speech present, difficulty communicating thoughts or seizure-like activity Psych: Denies: anxiety or depression Physical Exam Const: COMMON NORMALS: no acute distress, average body habitus (obese), patient oriented x3, alert and well nourished EXAM LIMITATIONS: no altered mental status, no behavioral limitations and no language barrier GENERAL APPEARANCE: cooperative, well kempt, well developed and in distress (appears to be in pain); not comfortable, not anxious, not combative, not lethargic, not ill appearing and not diaphoretic NUTRITIONAL APPEARANCE: obese ORIENTATION/CONSCIOUSNESS: Yes awake, Yes oriented to person, Yes oriented to place and Yes oriented to time; not lethargic HENMT: COMMON NORMALS: normocephalic and atraumatic; oral mucous membranes not moist HEAD & SCALP: normal to inspection, normocephalic and atraumatic FACE & SINUS: normal facial exam GENERAL EAR: hearing not grossly impaired MOUTH: Normal oral and palatal mucosa present, tongue normal and moist mucous membranes abnormal (mildly dry oral mucosa) THROAT: posterior oropharynx normal and uvula midline Eye: COMMON NORMALS: Equal, round and reactive pupils present, EOMs intact bilaterally, conjunctivae normal and no scleral icterus GENERAL EYE: appearance normal, both eyes and all related structures CONJUNCTIVA: Yes conjunctivae normal PUPIL: Yes Equal, round and reactive pupils present Neck/C-Spine: COMMON NORMALS: full ROM, supple, no meningeal signs and no JVD GENERAL: Yes normal visual inspection and Yes trachea midline CERVICAL SPINE: Yes cervical ROM normal and No pain with cervical ROM Chest: CHEST: Yes Symmetrical chest wall rise Resp: COMMON NORMALS: normal respiratory effort, No retractions, No use of accessory muscles and clear to auscultation bilaterally EFFORT & INSPECTION: Yes able to speak in complete sentences, Yes symmetric chest movement, No respiratory distress, No decreased respiratory effort, No pursed lip breathing, No labored, No grunting, No stridor, No Actively coughing, No retractions and No uses accessory muscles AUSCULTATION: clear to auscultation bilaterally Cardio: COMMON NORMALS: no JVD, regular rate and regular rhythm JUGULAR VENOUS DISTENTION: no JVD RATE: regular rate RHYTHM: regular rhythm HEART SOUNDS: no murmurs GI: COMMON NORMALS: Soft to palpation INSPECTION: No abdominal wall ecchymosis, No Abdominal wall edema, No abdominal distension, No incision, Yes central obesity, No visible herniation and No GI erythema present AUSCULTATION: Yes normoactive bowel sounds PALPATION: Yes Soft to palpation and Yes Tenderness to palpation present (GI) Details: LLQ, RLQ and other (suprapubic) : COMMON NORMALS: Yes no CVA tenderness BLADDER/KIDNEY EXAM: Yes no CVA tenderness and No CVA tenderness Back/Pelvis: COMMON NORMALS: no CVA tenderness, thoracic and lumbar spine normal to inspection and no thoracic nor lumbar tenderness GENERAL BACK: No CVA tenderness, No erythema, No ecchymosis and No tenderness THORACIC SPINE/UPPER BACK: Yes normal to inspection, No thoracic spinal tenderness, No paraspinal muscle tenderness and No paraspinal muscle spasm LUMBAR SPINE/LOWER BACK: Yes normal to inspection, No pain with ROM, No lumbar spinal tenderness and No paraspinal muscle tenderness Extremity: COMMON NORMALS: normal to inspection, full ROM, capillary refill normal and no calf tenderness Neuro: COMMON NORMALS: patient oriented x3, moves all extremities and no focal motor deficits SENSORIUM/ORIENTATION: Yes alert, Yes oriented to person, Yes oriented to place, Yes oriented to time and No lethargic MENINGEAL SIGNS: Yes no meningeal signs SPEECH: speech normal Psych: COMMON NORMALS: mental status grossly normal, Normal thought process present, cooperative, normal affect, speech normal and activity/motor behavior normal APPEARANCE: Yes grossly normal and Yes well kempt ATTITUDE: Yes calm and Yes engaged ACTIVITY/MOTOR BEHAVIOR: Yes appropriate eye contact SPEECH: Yes normal speech THOUGHT PROCESS: Normal thought process present INSIGHT: Good insight present (Psych) JUDGEMENT: Good judgement present (Psych) Skin: COMMON NORMALS: no rashes or lesions noted and no wounds GENERAL SKIN EXAM: no rashes or lesions noted Course Vital Signs: Vital signs: Vital Signs Temperature 98.2 F 06/28/20 21:23 Pulse Rate 67 06/29/20 02:39 Respiratory Rate 20 H 06/29/20 02:39 Blood Pressure 112/76 06/29/20 02:39 Pulse Oximetry 96 06/29/20 02:39 MDM - Nausea/Vomiting/Diarrhea Lab Data: Labs: Lab Results 06/28/20 06/28/20 06/29/20 Range/Units 21:34 21:34 00:28 WBC 9.2 (4.0-10.0) 10^3/ uL RBC 4.15 (4.1-5.3) 10^6/u L Hgb 13.1 (11.5-15.3) g/dL Hct 37.5 (37.0-47.0) % MCV 90.4 (81-99) fL MCH 31.6 (28.0-34.0) pg MCHC 34.9 (30.0-36.0) g/dL RDW 12.4 (12.1-15.1) % Plt Count 174 (130-400) 10^3/c mm MPV 9.7 (7.4-10.4) fL Neut % (Auto) 85.4 % Lymph % (Auto) 4.2 % Bulloch % (Auto) 8.8 % Eos % (Auto) 1.0 % Baso % (Auto) 0.3 % Neut # (Auto) 7.87 H (1.8-7.7) 10^3/u L Lymph # (Auto) 0.4 L (0.8-4.8) 10^3/u L Bulloch # (Auto) 0.8 (0.2-0.9) 10^3/u L Eos # (Auto) 0.1 (0.0-0.8) 10^3/u L Baso # (Auto) 0.0 (0.0-0.1) 10^3/u L Nucleated RBC % (a uto) 0 % Nucleated RBCs # 0.0 /100WBC Sodium 136 (136-145) mmol/L Potassium 3.2 L (3.5-5.1) mmol/L Chloride 102 (98-107) mmol/L Carbon Dioxide 23 (22-29) mmol/L Anion Gap 14.2 (5-19) BUN 22 (8-23) mg/dL Creatinine 1.5 H (0.5-0.9) mg/dL GFR Calculation Not Reportable Glucose 136 H (65-115) mg/dL Calculated Osmolal ity 287 (285-295) mOsm/k g Calcium 8.6 (8.5-10.5) mg/dL Magnesium 1.3 L (1.7-2.3) mg/dL Total Bilirubin 0.9 (0.15-1.2) mg/dL AST 17 (0-32) U/L ALT 14 (0-33) U/L Alkaline Phosphata se 55 (35-105) IU/L Total Protein 6.6 (6.6-8.7) g/dL Albumin 3.4 L (3.5-5.2) g/dL Globulin 3.2 (1.3-4.6) g/dL Lipase 12 L (13-60) U/L Urine Color Yellow (Yellow) Urine Appearance Clear (CLEAR) Urine pH 5 (5-7) Ur Specific Gravit y 1.020 (1.005-1.030) Urine Protein Neg (Negative) Urine Glucose (UA) Norm (Normal) Urine Ketones Negative (Negative) Urine Blood Neg (Negative) Urine Nitrate Negative (Negative) Urine Bilirubin Neg (Negative) Urine Urobilinogen Norm (Negative) mg/dL Ur Leukocyte Charity ase Negative (Negative) Discharge Plan Discharge Patient Disposition: Home Clinical Impression: Dehydration, Hypokalemia, Hypomagnesemia Nausea & vomiting Qualifiers: Vomiting type: unspecified Vomiting Intractability: unspecified Qualified Code(s): R11.2 - Nausea with vomiting, unspecified Diarrhea Qualifiers: Diarrhea type: unspecified type Qualified Code(s): R19.7 - Diarrhea, unspecified Condition: Stable Prescriptions: New tramadol 50 mg tablet 50 mg PO Q6H PRN (Reason: pain) Qty: 10 RF: 0 No Action Zofran 4 mg tablet 4 mg PO Q6H PRN (Reason: nausea and vomiting) Qty: 20 RF: 0 lactulose 10 gram/15 mL (15 mL) solution 10 g PO DAILY PRN (Reason: constipation) Qty: 600 RF: 0 Discharge Orders: Discharge ED (Routine); Ordered 06/29/20 Ordered By: Joselito Whiteside Referrals: Robert Perez MD [Primary Care Provider] - Dawood Owusu MD [Hospitalist] - 1-3 days Discharge Diet: Advance as tolerated Discharge Activity: Increase activity as tolerated Patient Instructions: Opioid Safety Activity Restrictions/Additional Instructions: increase noncaffeine fluids Take your zofran as prescribed Follow up with your primary care provider and oncologist Coding Level of Care Code ED [employer] 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
[2020-06-28] MEDS: sodium chloride 0.9% 500 ML 999 ML IV (23:45)
[2020-06-28 23:48] VITALS: BP 100/57; PULSE 71; RESP 17; O2SAT 94
[2020-06-29] MEDS: potassium chloride ER 20 mEq Tablet 40 MEQ PO (00:11)
[2020-06-29 00:34] LABS: Add Urine Microscopic? NO
[2020-06-29 00:39] LABS: Bilirubin Urine Neg (Negative); Blood Urine Neg (Negative); Glucose Urine UA Norm (Normal); Ketones Urine Negative (Negative); Leukocyte Esterase Urine Negative (Negative); Nitrate Urine Negative (Negative); Protein Urine Neg (Negative); Urine Appearance Clear (CLEAR); Urine Color Yellow (Yellow); Urobilinogen Urine Norm (Negative); pH Urine 5 (5-7)
[2020-06-29 00:50] VITALS: BP 110/55; PULSE 80; RESP 18; O2SAT 93
[2020-06-29 02:20] VITALS: RESP 18; O2SAT 96
[2020-06-29] MEDS: ondansetron 2 mg/ML SDV 2 mL 4 MG IVP (02:20)
[2020-06-29] MEDS: morphine 4 mg/mL SDV 1 mL IVP (02:20)
[2020-06-29 02:39] VITALS: BP 112/76; PULSE 67; RESP 20; O2SAT 96
== END 2020-06-29 02:25 | disposition home or self-care (01) ==
PROVIDERS: Emergency Provider Emergency Medicine; PCP Family Medicine
DX: R11.2 Nausea with vomiting, unspecified (principal); R19.7 Diarrhea, unspecified; E86.0 Dehydration; E87.6 Hypokalemia; E83.42 Hypomagnesemia; Z79.899 Other long term (current) drug therapy
CPT/HCPCS: 80053; 81003; 83690; 83735; 85025; 96361; 96374; 96375; 96376; 99283; J2270; J2405; J3475; J7030; J7040

== ENCOUNTER 2020-07-05 05:40 | Outpatient (RCR) | payer MEDICARE, OTHER, SELFPAY ==
--- NOTE | 2020-07-04 15:32 | ONCRAD TMN_ITS ---
Radiation Oncology Treatment Management Note Patient Name: Archana Garcia Date of : 1945 Date of Service: 07/04/2020 Attending Physician: Julius Sorensen M.D. 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 A modified radical robotic hysterectomy with bilateral salpingo-oophorectomy and pelvic/retroperitoneal sentinel lymph node mapping was performed in March 2020. The patient has received 39.6 Gy of a prescribed 45 Rao with an intensity modulated radiotherapy plan utilizing a step and shoot treatment technique. [id number]-[id number] brachytherapy has been completed. Upon review of systems, she denied any gastrointestinal symptoms. On physical examination, the patient weighed 280 lbs. Her temperature was 98.8???F with a blood pressure of 112/52 mmHg. Her pulse was 53 bpm and her respiratory rate was 18. Continue pelvic radiotherapy as prescribed. Signed by: Dr. Julius Sorensen 07/04/2020 3:30:11 PM
== END 2020-07-05 23:59 | disposition home or self-care (01) ==
LOC: ONCMED 05:40
PROVIDERS: PCP Family Medicine; Visit Provider Radiology Radiation Oncology
DX: Z51.0 Encounter for antineoplastic radiation therapy (principal); C54.1 Malignant neoplasm of endometrium; Z90.710 Acquired absence of both cervix and uterus; Z90.722 Acquired absence of ovaries, bilateral
CPT/HCPCS: 77386

== ENCOUNTER 2020-08-04 05:53 | Outpatient (RCR) | payer MEDICARE, OTHER, SELFPAY ==
--- NOTE | 2020-08-04 11:45 | ONCRAD EPV_ITS ---
Radiation Oncology Follow-Up Note Patient Name: Archana Garcia Date of : 1945 Date of Service: 08/04/2020 Attending Physician: Julius Sorensen M.D. Archana Garcia returned to my office this morning for a routinely scheduled follow-up appointment. 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 A modified radical robotic hysterectomy with bilateral salpingo-oophorectomy and pelvic/retroperitoneal sentinel lymph node mapping was performed in March 2020. Pelvic radiotherapy was administered between the dates of May 29, 2020 through July 07, 2020. A prescribed dose of 50 Gy was delivered in 25 fractions encompassing 40 elapsed days. Upon review of systems, she described continued diarrhea. On physical examination, the patient weighed 273 lbs. Her temperature was 97.8 ???F with a blood pressure of 109/63 mmHg. The pulse was 67 bpm and her respiratory rate was 18 breaths per minute. In summary, Ms. Garcia returned for a routine post radiotherapy follow-up. I will refer her for a gastroenterology evaluation for persistent diarrhea. She will continue close observation with her gynecologic oncologist. Signed by: Dr. Julius Sorensen 08/04/2020 11:43:55 AM
== END 2020-08-04 23:59 | disposition home or self-care (01) ==
LOC: ONCMED 05:53
PROVIDERS: PCP Family Medicine; Visit Provider Radiology Radiation Oncology
DX: Z51.0 Encounter for antineoplastic radiation therapy (principal); C54.1 Malignant neoplasm of endometrium; Z79.899 Other long term (current) drug therapy
CPT/HCPCS: 77014; 77336; 77386; 77427; 99024

== ENCOUNTER 2020-12-06 09:57 | Outpatient (CLI) | payer MEDICARE, OTHER, SELFPAY ==
--- NOTE | 2020-12-06 10:04 | US_ITS ---
WS: [id number] RENAL ULTRASOUND HISTORY: RENAL CYST COMPARISON: 10/11/2019 TECHNIQUE: 2-D and color Doppler imaging of the kidney submitted. Right kidney: 9.6 cm x 4.8 cm x 4.6 cm. Normal echogenicity with no hydronephrosis or mass. No cyst is identified today. Left kidney: 10.4 cm x 4.6 cm x 5.5 cm. Normal size kidney. Exophytic cyst from the mid kidney measures 1.7 x 1.6 x 1.8 cm. Not significantly increased in size since the most recent examination. Aorta: Normal. Urinary Bladder: Normal distention. US/US renal BI* [id number] IMPRESSION: 1. Quality of examination is limited by body habitus. 2. LEFT renal cyst unchanged at 1.7 x 1.6 x 1.8 cm. 3. No RIGHT renal cyst identified.
== END 2020-12-06 09:58 | disposition home or self-care (01) ==
LOC: US 10:00
PROVIDERS: PCP Family Medicine; Visit Provider Family Medicine
DX: N28.1 Cyst of kidney, acquired (principal)
CPT/HCPCS: 76770

== ENCOUNTER 2022-01-17 14:11 | Outpatient (CLI) | payer MEDICARE, OTHER, SELFPAY ==
--- NOTE | 2022-01-17 14:27 | MM_ITS ---
WS: [id number] BILATERAL 3D TOMOSYNTHESIS DIGITAL SCREENING MAMMOGRAPHY WITH CAD CLINICAL INFORMATION: SCREEN HISTORY: Screening mammogram. No current complaints. COMPARISON: None. TECHNIQUE: Bilateral CC and MLO views. FINDINGS: Scattered fibroglandular densities bilaterally. No suspicious focal mass, asymmetry, calcifications, or architectural distortion. No evidence of malignancy. Punctate and lucent centered calcifications. MM/[place] [id number] IMPRESSION: BI-RADS: 2-Benign FOLLOW UP: 1 Year Follow-up Recommend return to annual screening mammography.
--- NOTE | 2022-01-17 14:49 | XR_ITS ---
WS: [id number] DEXA (DUAL ENERGY X-RAY ABSORPTIOMETRY) Bone mineral density was performed using a [employer] machine. HISTORY: POSTMENOPAUSAL COMPARISON: 11/26/2017 Lumbar spine BMD (L1-L4): 1.210 g/cm2 T score: 0.3 Z score: 0.8 Total hip BMD: Left: 0.908 g/cm2. T score: -0.8 Z score: 0.1 Right: 0.807 g/cm2. T score: -1.6 Z score: -0.7 10 year probability of a major osteoporotic fracture is 10.7%. Compared to the prior study from 11/26/2017. Lumbar spine bone mineral density has increased by 5.5%. Bilateral hips bone mineral density has decreased by 5.8%. XR/XR DEXA axial skeleton* [id number] IMPRESSION: OSTEOPENIA based upon the WHO classification for females. Significant decrease in bone mineral density within the hips since the prior st udy. Significant increase in bone mineral density within the lumbar spine since the prior study.
== END 2022-01-17 14:12 | disposition home or self-care (01) ==
LOC: RAD 14:11
PROVIDERS: PCP Family Medicine; Visit Provider Family Medicine
DX: Z12.31 Encounter for screening mammogram for malignant neoplasm of breast (principal); Z78.0 Asymptomatic menopausal state; M85.89 Other specified disorders of bone density and structure, multiple sites
CPT/HCPCS: 77063; 77067; 77080

== ENCOUNTER 2023-01-23 13:21 | Outpatient (CLI) | payer MEDICARE, OTHER, SELFPAY ==
--- NOTE | 2023-01-23 13:26 | MM_ITS ---
WS: [id number] SCREENING DIGITAL TOMOSYNTHESIS MAMMOGRAM WITH CAD HISTORY: SCREENING COMPARISON: 01/17/2022 and 05/25/2020 Bilateral CC and MLO with tomosynthesis views submitted. Synthetic mammography reviewed. Computer aid ed detection analyzed. Breast composition: There are scattered areas of fibroglandular density. No suspicious masses, microc alcifications or architectural distortion. Benign coarse calcifications in each breast. IMPRESSION: MM/[place] [id number] BI-RADS: 2-Benign FOLLOW UP: 1 Year Follow-up
== END 2023-01-23 13:22 | disposition home or self-care (01) ==
LOC: RAD 13:22
PROVIDERS: PCP Family Medicine; Visit Provider Family Medicine
DX: Z12.31 Encounter for screening mammogram for malignant neoplasm of breast (principal)
CPT/HCPCS: 77063; 77067

== ENCOUNTER 2023-03-21 13:32 | Outpatient (CLI) | payer MEDICARE, OTHER, SELFPAY ==
--- NOTE | 2023-03-21 13:38 | USCV_ITS ---
Archana Garcia Age: 77 Gender: F : 1945 Exam Date: 03/21/2023 14:27 Ordering Phys: Hari Castellon MD Technologist: Andres Jesus [place] [facility] [place]: [place] BP: 118 / 62 HR: 67 Rhythm: Sinus Technical Quality: Adequate MEASUREMENTS (Male / Female) Normal Values 2D ECHO LVOT Diameter 2.0 cm LV Ejection Fraction MOD 2C 67.9 % LV Ejection Fraction 2C AL 68.6 % LA Diameter 4.0 cm LA Width 3.3 cm LA Height 5.4 cm RA Width 3.4 cm RA Height 4.4 cm Aorta at Sinotubular Diameter 2.3 cm M-MODE Aortic Annulus Diameter 2.4 cm LA Ao Ratio MM 1.8 MV E Point Septal Separation 0.7 cm DOPPLER AV Peak Velocity 207.0 cm/s LVOT Peak Velocity 99.0 cm/s AV Area Cont Eq vti 1.8 cm squared AV Area Cont Eq pk 1.5 cm squared MV Peak Velocity 190.0 cm/s MV Area PHT 2.7 cm squared Mitral E to A Ratio 1.1 MV E' Velocity 44.0 cm/s Mitral E to MV E' Ratio 7.9 Mitral E to LV E' Lateral Ratio 7.2 Mitral E to LV E' Septal Ratio 8.7 TR Peak Velocity 318.2 cm/s TR Peak Gradient 40.5 mmHg TR Mean Velocity 240.2 cm/s TR Mean Gradient 24.8 mmHg TR Velocity Time Integral 84.8 cm Right Atrial Pressure 8.0 mmHg Pulmonary Artery Systolic Pressu 48.5 mmHg PV Peak Velocity 144.7 cm/s RV Acceleration Time 0.2 s RV Ejection Time 0.2 s RV AcT/ET 0.7 FINDINGS Left Ventricle Normal left ventricular size and systolic function, EF 69 %. Mild left ventricular hypertrophy. Grade III/IV diastolic dysfunction (restrictive filling pattern), severely elevated filling pressures. Right Ventricle The right ventricle is normal in size and function. Right Atrium The right atrium is normal in size. Left Atrium Mildly increased left atrial size. Mitral Valve Thickened mitral valve. Moderate mitral annular calcification. Trace mitral valve regurgitation. Aortic Valve Thickened aortic valve. Aortic valve sclerosis. Tricuspid Valve Trace to mild tricuspid valve regurgitation. Estimated pulmonary artery peak systolic pressure 49 mmHg Pulmonic Valve Trace pulmonary valve regurgitation. Pericardium Normal pericardium without effusion. Aorta Normal ascending aorta dimension. IVC Inferior vena cava not visualized. CONCLUSIONS Normal left ventricular size and systolic function, EF 69 %. Mild left ventricular hypertrophy. Grade III/IV diastolic dysfunction (restrictive filling pattern), severely elevated filling pressures. Mildly increased left atrial size. Thickened mitral valve. Moderate mitral annular calcification. Trace mitral valve regurgitation. Aortic valve sclerosis. Trace to mild tricuspid valve regurgitation. Estimated pulmonary artery peak systolic pressure 49 mmHg. There is no pericardial effusion. There are no intracardiac masses. Compared to the study from 04/29/2018, there may not be a significant change Dr Praveen Rocha MD FACC (Electronically Signed) Final Date: 22 March 2023 20:50 S
== END 2023-03-21 13:33 | disposition home or self-care (01) ==
LOC: RAD 13:32
PROVIDERS: PCP Family Medicine; Visit Provider Internal Medicine Cardiovascular Disease
DX: I48.0 Paroxysmal atrial fibrillation (principal); I10 Essential (primary) hypertension; R06.09 Other forms of dyspnea; I08.3 Combined rheumatic disorders of mitral, aortic and tricuspid valves
CPT/HCPCS: 93306

== ENCOUNTER 2023-03-24 12:05 | Emergency (ER) | payer MEDICARE, OTHER, SELFPAY ==
--- NOTE | 2023-03-24 12:07 | XR_ITS ---
WS: [id number] Portable AP upright chest, 03/24/2023 Clinical Data: cp Comparison: Two-view chest, 04/08/2018 Findings: No nodules, masses or effusions are seen. The heart is normal. The pulmonary vascularity is not increased. No pneumonia or pneumothorax is seen. The aortic arch and descending thoracic aorta s how tortuosity. There are surgical clips in the left upper quadrant. Impression: Atherosclerosis.
--- NOTE | 2023-03-24 12:12 | ECG_ITS ---
[facility] Test Date: 2023-03-24 Pat Name: Archana Garcia Department: Room: Gender: Female Outdoor Pursuits Instructor: : 1945 Requested By: Mohan Causey Order Number: [id number] Maxine MD: Praveen Rocha M.D. Measurements Intervals [place] Rate: 76 P: 0 [place]: 0 QRS: -60 QRSD: 119 T: 9 QT: 398 QTc: 448 Interpretive Statements ATRIAL FIBRILLATION WITH ABERRANT CONDUCTION OR VENTRICULAR PREMATURE COMPLEXES LEFT AXIS DEVIATION [QRS AXIS < -30] LOW QRS VOLTAGE IN PRECORDIAL LEADS [QRS DEFLECTION < 1.0 mV IN CHEST LEADS] RIGHT BUNDLE BRANCH BLOCK [120+ ms QRS DURATION, UPRIGHT V1, 40+ ms S IN I/aVL/V4/V5/V6] POSSIBLE ANTERIOR MYOCARDIAL INFARCTION , OF INDETERMINATE AGE [30 ms Q WAVE IN V3/V4, OR R < 0.2 mV IN V4] Compared to ECG 07/05/2015 03:42:22 Ventricular premature complex(es) now present.Aberrant conduction of supraventricular beat(s) now present.Left-axis deviation now present.Right bundle-branch block now present.Sinus bradycardia no longer present.Left anterior fascicular block no longer present.Myocardial infarct finding still present Electronically Signed On 03-24-2023 17:41:42 BILINGUAL SECRETARY by Praveen Rocha M.D. [id number]
[2023-03-24 12:18] VITALS: BP 141/70; PULSE 83; RESP 18; TEMP 36.7; O2SAT 95; BMI 48.0
[2023-03-24 12:31] VITALS: BP 127/76; PULSE 88; RESP 18; O2SAT 98
[2023-03-24 12:41] LABS: Basophils % 0.4 %; Eosinophils # 0.1 10^3/uL (0.0-0.8); Eosinophils % 0.6 %; Hematocrit 41.5 % (36-47); Lymphocytes # 1.4 10^3/uL (0.8-4.8); Lymphocytes % 17.5 %; Mean Corpuscular HGB Conc 32.5 g/dL (30-55); Mean Corpuscular Hemoglobin 31.4 pg (27-33); Mean Corpuscular Volume 96.5 fl (85-98); Mean Platelet Volume 9.6 fL (7.4-10.4); Monocytes # 0.6 10^3/uL (0.2-0.9); Monocytes % 6.9 %; Neutrophils % 74.2 %; Nucleated Red Blood Cells % 0 %; Platelet Count 210 10^3/cmm (157-399); Red Cell Distribution Width 11.9 % (12.1-15.1); White Blood Count 8.08 10^3/uL (3.29-11.43)
--- NOTE | 2023-03-24 13:02 | ED_ITS ---
HPI - SOB/Dyspnea 2 General: Chief Complaint: Shortness of Breath/Dyspnea Stated Complaint: chest pain Time Seen by Provider: 03/24/23 12:44 Source: patient Mode of arrival: ambulatory History of Present Illness: HPI Narrative: 77-year-old female who presents emergenc y room with a brief episode of chest discomfort epigastric radiating to the left side of the chest. She has had episodes like this in the past she has a known history of atrial fibrillation she currently is on Xarelto. No radiation of pain in the neck or arms she was briefly short of breath with this as well this is for the most part resolved at this point. She usually sees insurance account executive in [place] she denies any recent medication adjustments though she did recently have a echocardiogram. This was reviewed in the chart. MD elicited complaint: shortness of breath and cough Pertinent past history: congestive heart failure Associated symptoms: Deny abdominal pain, chest pain or fever(s) Review of Systems 2 Const: Denies: fever(s) or chills Card: Denies: chest pain Resp: Denies: dyspnea GI: Denies: abdominal pain : Denies: dysuria, urinary frequency or urinary urgency Musc: Denies: neck pain or back pain Skin/Breast: Denies: rash Physical Exam 2 Const: COMMON NORMALS: no acute distress GENERAL APPEARANCE: cooperative and comfortable ORIENTATION/CONSCIOUSNESS: Yes awake, Yes oriented to person, Yes oriented to place and Yes oriented to time HENMT: COMMON NORMALS: normocephalic, atraumatic and hearing grossly normal bilaterally HEAD & SCALP: normocephalic and atraumatic Resp: COMMON NORMALS: normal respiratory effort, No retractions, No use of accessory muscles and clear to auscultation bilaterally AUSCULTATION: clear to auscultation bilaterally Cardio: COMMON NORMALS: regular rate, regular rhythm and No murmurs present (Cardio) RATE: regular rate RHYTHM: regular rhythm GI: COMMON NORMALS: Soft to palpation and No hepatosplenomegaly present A USCULTATION: Yes normoactive bowel sounds PALPATION: Yes Soft to palpation, No Tenderness to palpation present (GI), No Guarding due to palpation present (GI) and Yes No hepatosplenomegaly present Extremity: COMMON NORMALS: normal to inspection, capillary refill normal, no clubbing, cyanosis or edema, no calf tenderness and no pedal edema Neuro: SENSORIUM/ORIENTATION: Yes oriented to person, Yes oriented to place and Yes oriented to time Skin: COMMON NORMALS: no rashes or lesions noted GENERAL SKIN EXAM: no rashes or lesions noted Course 2 Vital Signs: Vital signs: Vital Signs Temperature 98.0 F 03/24/23 12:18 Pulse Rate 78 03/24/23 14:27 Respiratory Rate 18 03/24/23 12:31 Blood Pressure 110/78 03/24/23 14:27 Pulse Oximetry 98 03/24/23 14:27 Oxygen Delivery Me thod Room Air 03/24/23 14:27 MDM - SOB/Dyspnea Medical Decision Making No evidence of acute coronary syndrome. EKG shows atrial fibrillation patient is not having any symptoms this time troponin is trending negative. She did recently have an echo that showed high normal ejection fraction with diastolic dysfunction. Suspect this may be related to some her symptoms as a possibility she is having episodes of poorly controlled atrial fibrillation rate. She did state that her insurance account executive had been wanting to get her Holter monitor. Will set her up for an outpatient Lexiscan sestamibi stress test also asked case management to look at getting her set up for the 24-hour Holter. Continue current medications follow-up with Dr. Perez her current her insurance account executive avoid any strenuous activity. No signs of PE or pneumonia at this time. Differential Diagnosis Likely congestive heart failure, community acquired pneumonia and pulmonary embolism Medical Records I reviewed the patient's medical records. Lab Data I reviewed the patient's lab results. 03/24/23 12:30 03/24/23 12:30 Labs/Radiology: Laboratory Results WBC 8.08 10^3/uL (3.29-11.43) 03/24/23 12:30 RBC 4.30 10^6/uL (3.85-5.65) 03/24/23 12:30 Hgb 13.50 g/dL (11.27-16.99) 03/24/23 12:30 Hct 41.5 % (36-47) 03/24/23 12:30 MCV 96.5 fl (85-98) 03/24/23 12:30 MCH 31.4 pg (27-33) 03/24/23 12:30 MCHC 32.5 g/dL (30-55) 03/24/23 12:30 RDW 11.9 % (12.1-15.1) L 03/24/23 12:30 Plt Count 210 10^3/cmm (157-399) 03/24/23 12:30 MPV 9.6 fL (7.4-10.4) 03/24/23 12:30 Neut % (Auto) 74.2 % 03/24/23 12:30 Lymph % (Auto) 17.5 % 03/24/23 12:30 [place] % (Auto) 6.9 % 03/24/23 12:30 Eos % (Auto) 0.6 % 03/24/23 12:30 Baso % (Auto) 0.4 % 03/24/23 12:30 Neut # (Auto) 6.00 10^3/uL (1.8-7.7) 03/24/23 12:30 Lymph # (Auto) 1.4 10^3/uL (0.8-4.8) 03/24/23 12:30 [place] # (Auto) 0.6 10^3/uL (0.2-0.9) 03/24/23 12:30 Eos # (Auto) 0.1 10^3/uL (0.0-0.8) 03/24/23 12:30 Baso # (Auto) 0.0 10^3/uL (0.0-0.1) 03/24/23 12:30 Nucleated RBC % (auto) 0 % 03/24/23 12:30 Nucleated RBCs # 0.0 /100WBC 03/24/23 12:30 Sodium 138 mmol/L (136-145) 03/24/23 12:30 Potassium 4.4 mmol/L (3.5-5.1) 03/24/23 12:30 Chloride 101 mmol/L (98-107) 03/24/23 12:30 Carbon Dioxide 28 mmol/L (22-29) 03/24/23 12:30 Anion Gap 13.4 (5-19) 03/24/23 12:30 BUN 25 mg/dL (8-23) H 03/24/23 12:30 Creatinine 1.5 mg/dL (0.5-0.9) H 03/24/23 12:30 GFR Calculation Not Reportable 03/24/23 12:30 Glucose 101 mg/dL (65-115) 03/24/23 12:30 Calculated Osmolality 291 mOsm/kg (285-295) 03/24/23 12:30 Calcium 9.6 mg/dL (8.5-10.5) 03/24/23 12:30 Total Bilirubin 1.0 mg/dL (0.15-1.2) 03/24/23 12:30 AST 15 U/L (0-32) 03/24/23 12:30 ALT 18 U/L (0-33) 03/24/23 12:30 Alkaline Phosphatase 70 U/L (35-105) 03/24/23 12:30 Troponin T Baseline 16 ng/L (0-10) H 03/24/23 12:30 Troponin T 120 Minute 14.60 ng/L (0-10) H 03/24/23 14:42 Delta Troponin T -1.40 ABS# (0-10) L 03/24/23 14:42 NT-Pro-B Natriuret Pep 1326 pg/mL (0-450) H 03/24/23 12:30 Total Protein 6.6 g/dL (6.6-8.7) 03/24/23 12:30 Albumin 4.1 g/dL (3.5-5.2) 03/24/23 12:30 Globulin 2.5 g/dL (1.3-4.6) 03/24/23 12:30 All radiology interpretation(s) finalized by discharge Discharge Plan Discharge Patient Disposition: Home Clinical Impression: Atypical chest pain, Atrial fibrillation, Diastolic dysfunction Condition: Stable Prescriptions: No Action losartan 50 mg tablet 50 mg PO BID furosemide 40 mg tablet 40 mg PO DAILY diltiazem HCl 240 mg capsule,extended release 24hr 240 mg PO DAILY simvastatin 10 mg tablet 10 mg PO DAILY Klor-Con M20 20 mEq tablet,ER particles/crystals 20 meq PO DAILY pantoprazole 40 mg tablet,delayed release (DR/EC) 40 mg PO DAILY ergocalciferol (vitamin D2) 1,250 mcg (50,000 unit) capsule 1,250 mcg PO Q7D Rx Instructions: ON FRIDAY colestipol 1 gram tablet 1 g PO BID escitalopram oxalate 10 mg tablet 10 mg PO DAILY Xarelto 15 mg tablet 15 mg PO DAILY acetaminophen 650 mg Tablet Extended Release 1,300 mg PO Q12H PRN (Reason: Pain) Discharge Orders: Discharge ED (Routine); Ordered 03/24/23 Ordered By: Tomas Darby Referrals: Robert Perez MD [Primary Care Provider] - Discharge Diet: Usual diet Discharge Activity: Increase activity as tolerated Patient Instructions: Opioid Safety, Pain Management Activity Restrictions/Additional Instructions: Thank you for choosing [facility] for your healthcare needs today. Please realize this is an emergency room and that we are providing you with a medical screening exam and this may not be complete and all inclusive of all the testing and or work up that you may need to determine your ailment or severity of your illness. It is very important that you follow up as instructed or that you return to the Emergency Department should you have concerns or if your condition changes or worsens in any way. Case management make arrangements for you to outpatient stress test. We also asked them to schedule a 24-hour Holter monitor. Follow-up with Dr. Perez or your insurance account executive. Coding Level of Care Code ED Lathe Spotter for Candy Short
[2023-03-24 13:06] LABS: Alanine Aminotransferase 18 U/L (0-33); Albumin Level 4.1 g/dL (3.5-5.2); Alkaline Phosphatase 70 U/L (35-105); Anion Gap 13.4 (5-19); Aspartate Amino Transferase 15 U/L (0-32); Blood Urea Nitrogen 25 mg/dL (8-23); Calcium 9.6 mg/dL (8.5-10.5); Carbon Dioxide 28 mmol/L (22-29); Chloride 101 mmol/L (98-107); Globulin 2.5 g/dL (1.3-4.6); Glucose 101 mg/dL (65-115); Osmolality Calculated 291 mOsm/kg (285-295); Potassium 4.4 mmol/L (3.5-5.1); Sodium 138 mmol/L (136-145); Total Protein 6.6 g/dL (6.6-8.7); Troponin(5th) Baseline 16 ng/L (0-10)
[2023-03-24 13:50] LABS: NT Pro B Type Natriuretic Pept 1326 pg/mL (0-450)
--- NOTE | 2023-03-24 14:19 | ECG_ITS ---
[facility] Test Date: 2023-03-24 Pat Name: Archana Garcia Department: Room: Gender: Female Sample Distributor: : 1945 Requested By: Mohan Causey Order Number: [id number] Maxine MD: Praveen Rocha M.D. Measurements Intervals [place] Rate: 68 P: 0 [place]: 0 QRS: -63 QRSD: 122 T: 23 QT: 409 QTc: 437 Interpretive Statements ATRIAL FIBRILLATION LEFT AXIS DEVIATION [QRS AXIS < -30] RIGHT BUNDLE BRANCH BLOCK [120+ ms QRS DURATION, UPRIGHT V1, 40+ ms S IN I/aVL/V4/V5/V6] Compared to ECG 03/24/2023 12:12:31 Ventricular premature complex(es) no longer present Aberrant conduction of supraventricular beat(s) no longer present Myocardial infarct finding no longer present Electronically Signed On 03-24-2023 17:49:42 SENIOR QUALITY ASSURANCE SPECIALIST by Praveen Rocha M.D. [id number]
[2023-03-24 14:27] VITALS: BP 110/78; PULSE 78; O2SAT 98
== END 2023-03-24 16:42 | disposition home or self-care (01) ==
PROVIDERS: Emergency Medicine; Emergency Provider Family Medicine; PCP Family Medicine
DX: R07.89 Other chest pain (principal); I48.91 Unspecified atrial fibrillation; I51.89 Other ill-defined heart diseases
CPT/HCPCS: 36415; 71045; 80053; 83880; 84484; 85025; 93005; 99285

== ENCOUNTER → 2023-04-15 09:44 | Outpatient (BNVA) | payer MEDICARE, OTHER, SELFPAY | PROVIDERS: PCP Family Medicine; Visit Provider Internal Medicine Cardiovascular Disease | DX: R07.9 Chest pain, unspecified (principal); I48.91 Unspecified atrial fibrillation; I48.92 Unspecified atrial flutter; I49.3 Ventricular premature depolarization | CPT/HCPCS: 93225 ==

== ENCOUNTER 2023-07-30 09:32 | Outpatient (RCR) | payer MEDICARE, OTHER, SELFPAY | END 2023-08-05 23:59 | disposition home or self-care (01) | LOC: SPT 09:32 | PROVIDERS: PCP Family Medicine; Visit Provider Anesthesiology | DX: M48.062 Spinal stenosis, lumbar region with neurogenic claudication (principal) | CPT/HCPCS: 97110; 97161 ==

== ENCOUNTER 2023-08-06 06:00 | Outpatient (RCR) | payer MEDICARE, OTHER, SELFPAY | END 2023-09-05 23:59 | disposition home or self-care (01) | LOC: SPT 06:00 | PROVIDERS: PCP Family Medicine; Visit Provider Anesthesiology | DX: M48.062 Spinal stenosis, lumbar region with neurogenic claudication (principal); M43.06 Spondylolysis, lumbar region; M54.16 Radiculopathy, lumbar region | CPT/HCPCS: 97110 ==

== ENCOUNTER 2023-09-06 06:00 | Outpatient (RCR) | payer MEDICARE, OTHER, SELFPAY | END 2023-10-05 23:59 | disposition home or self-care (01) | LOC: SPT 06:00 | PROVIDERS: PCP Family Medicine; Visit Provider Anesthesiology | DX: M43.06 Spondylolysis, lumbar region (principal); M54.16 Radiculopathy, lumbar region; M48.062 Spinal stenosis, lumbar region with neurogenic claudication | CPT/HCPCS: 97110 ==

== ENCOUNTER 2023-10-06 06:00 | Outpatient (RCR) | payer MEDICARE, OTHER, SELFPAY | END 2023-11-05 23:59 | disposition home or self-care (01) | LOC: SPT 06:00 | PROVIDERS: PCP Family Medicine; Visit Provider Anesthesiology | DX: M43.06 Spondylolysis, lumbar region (principal); M48.062 Spinal stenosis, lumbar region with neurogenic claudication; M54.16 Radiculopathy, lumbar region | CPT/HCPCS: 97110; G0283 ==

== ENCOUNTER 2024-01-29 12:18 | Outpatient (CLI) | payer MEDICARE, OTHER, SELFPAY ==
--- NOTE | 2024-01-29 12:21 | MM_ITS ---
WS: [id number] VIEWS: MLO and CC views both breasts. 3D digital tomosynthesis is also included in this exam. Comparison made with prior exam of 05/29/2017, 01/17/2022 and 01/23/2023.. Findings: There are scattered areas of fibroglandular density. No sign of mass, tumor calcification or architectural distortion. MM/MM scr BI tomosynthesis [id number] Impression: BI-RADS: 2 - Benign FOLLOW-UP: 1 Year Follow-up This mammogram was also analyzed by the Computer Aided Detection System R2 Imag e Programmer Analyst.
== END 2024-01-29 12:19 | disposition home or self-care (01) ==
LOC: RAD 12:19
PROVIDERS: PCP Family Medicine; Visit Provider Family Medicine
DX: Z12.31 Encounter for screening mammogram for malignant neoplasm of breast (principal); R92.323 Mammographic fibroglandular density, bilateral breasts
CPT/HCPCS: 77063; 77067

== ENCOUNTER → 2024-04-30 10:24 | Outpatient (BNVA) | payer MEDICARE, OTHER, SELFPAY | PROVIDERS: PCP Family Medicine; Visit Provider Internal Medicine | DX: R07.9 Chest pain, unspecified (principal) | CPT/HCPCS: 93005; 99204 ==

== ENCOUNTER 2025-01-06 15:44 | Inpatient (IN) | payer MEDICARE, OTHER, SELFPAY ==
[2025-01-06] VITALS (8 sets, daily range): BP systolic 100–126; BP diastolic 70–90; PULSE 68–92; RESP 20; TEMP 36.4; O2SAT 94–97; BMI 48.0
--- OUTSIDE RECORDS SUMMARY | 2025-01-06 14:30 | XMS_ITS | Encounter Summary ---
Author Organization [facility], [facility] Address [address] [facility] [address] [place] [address] Phone Care Team Providers Care Tank Charger Name Role Phone Robert Perez MD Primary Care Provider [phone] Reason for Visit * Reason Comments Chronic Kidney Disease Encounter Details Date Type Department Care Team (Late st Contact Info) Description 01/06/2025 2:30 PM CDT Office Visit [facility], [facility] [address] [place] [address] Randee Pires ELECTRIC STOVE MECHANIC [address] [facility] [address] [place] [address] Stage 3b chronic kidney disease (HCC) (Primary Dx) Social History Tobacco Use Types Packs/Day Years Used Date Smoking Tobacco: Never Smokeless Tobacco: Never Alcohol Use Standard Drinks/Week Comments Never 0 (1 standard drink = 0.6 oz pur e alcohol) AUDIT-C Answer Date Recorded Frequency of Alcohol Consumption Never 04/21/2019 Average Number of Drinks Not on file 020 Frequency of Binge Drinking Not on file 04/07 Comments Unknown Sex and Gender Information Value Date Recorded Sex Assigned at Not on file Legal Sex Female 10:06 AM EDT Gender Identity Not on file Sexual Orientation Not on file documented as of this encounter Last Filed Vital Signs Vital Sign Reading Time Taken Comments Blood Pressure 126/74 01/06/2025 2:27 PM CDT Pulse 102 01/06/2025 2:27 PM CDT Temperature - - Respiratory Rate - - Oxygen Saturation 95% 01/06/2025 2:27 PM CDT Inhaled Oxygen Concentration - - Weight 129 kg (284 lb 9.6 oz) 01/06/2025 2:27 PM CDT Height 162.6 cm (5' 4 ) 01/06/2025 2:27 PM CDT Body Mass Index 48.85 01/06/2025 2:27 PM CDT documented in this encounter Patient Instructions * Patient Instructions* Randee Pires NP - 01/06/2025 2:30 PM CDT No NSAIDS - Do not take non-steroidal anti-inflammatory medications (NSAIDS) such as Ibuprofen (Advil, Motrin, etc), Naproxen (Aleve, etc), Celecoxib (Celebrex) or Ketoprofen. These common arthritis medications can cause permanent kidney damage or worsen your kidney damage. For mild occasional pain, Acetaminophen (Tylenol, etc) is safe for your kidneys. No iodinated contrast - You should avoid contrast dye used in CT scans, Angiograms or other tests because this type of dye can injure your kidneys. Sometimes using that type of contrast dye is essential but in that instance be certain that your work station support specialist is contacted so that care can be taken toprotect your kidneys before the test is done. documented in this encounter Plan of Treatment Upcoming Encounters Date Type Department Care Team (Late st Contact Info) Description 07/04/2025 1:00 PM CDT Office Visit [facility], [facility] [address] [place] [id number] Randee Pires NP Counts include 234 beds at the [facility] [id number] Scheduled Orders Name Type Priority Associated Diagnoses Orde r Schedule Renal function panel Lab Routine Stage 3b chronic kidney disease (HCC) Expected: 07/07/2025 (Approximate), Expires: 02/06/2026 CBC Lab Routine Stage 3b chronic kidney disease (HCC) Expected: 07/07/2025, Expires: 02/06/2026 Urine albumin / creatinine ratio Lab Routine Stage 3b chronic kidney disease (HCC) Expected: 07/07/2025, Expires: 02/06/2026 PTH, intact Lab Routine Stage 3b chronic kidney disease (HCC) Expected: 07/07/2025, Expires: 02/06/2026 documented as of this encounter Visit Diagnoses Diagnosis Stage 3b chronic kidney disease (HCC)- Primary documented in this encounter Care Teams Tank Charger Relationship Specialty Start Date End Date Robert Perez MD [address] [place] [address] PCP - General Family Medicine 04/20/19 documented as of this encounter
--- OUTSIDE RECORDS SUMMARY | 2025-01-06 15:51 | XMS_ITS | Encounter Summary ---
Author Organization [facility], [facility] Address [address] [facility] [address] [place] [address] Phone Care Team Providers Care Transmitter Chief Name Role Phone Robert Perez MD Primary Care Provider [phone] Encounter Details Date Type Department Care Team (Late st Contact Info) Description 12/30/2024 Orders Only [facility], [address] [address] Randee Pires NP [address] [facility] [facility] [address] [place] [address] Stage 3b chronic kidney disease (HCC) Social History Tobacco Use Types Packs/Day Years [...] on file documented as of this encounter Plan of Treatment Upcoming Encounters Date Type Department Care Team (Late st Contact Info) Description 07/04/2025 1:00 PM CDT Office Visit [facility] [address] [address] Randee Pires NP [address] [facility] [address] [place] [address] documented as of this encounter Procedures Procedure Name Priority Date/Time Associated Diagnosis Comments URINE ALBUMIN / CREATININE RATIO Routine 12/21/2024 8:33 AM CDT Stage 3b chronic kidney disease (HCC) CBC Routine 12/21/2024 8:33 AM CDT Stage 3b chronic kidney disease (HCC) PTH, INTACT Routine 12/21/2024 8:33 AM CDT Stage 3b chronic kidney disease (HCC) RENAL FUNCTION PANEL Routine 12/21/2024 8:33 AM CDT Stage 3b chronic kidney disease (HCC) documented in this encounter Results * (ABNORMAL) PTH, intact (12/21/2024 8:33 AM CDT) Parathyroid Hormone, Intact 85(H) 16 - 77 pg/mL [facility] Comment: Interpretive Guide Intact PTH Calcium ------- Normal Parathyroid Normal Normal Hypoparathyroidism Low or Low Normal Low Hyperparathyroidism Primary Normal or High High Secondary High Normal or Low Tertiary High High Non-Parathyroid Hypercalcemia Low or Low Normal High Blood specimen (specimen) 12/21/2024 8:33 AM CDT 12/21/2024 8:33 AM CDT Narrative Resulting Agency Comment Performing Organization Information: Site ID: [place] Name: [facility] Address: [address] [place] [address] Director: Kristi Leonard MD us Randee Pires NP LAB BLOOD ORDERABLES Zoya thomas Result [address] [email or web address] [address] [place] [address] * Urine albumin / creatinine ratio (12/21/2024 8:33 AM CDT) Creatinine, Ur 141 20 - 275 mg/dL [facility] Urine Microalbumin 1.1 See Note: mg/dL [facility] Comment: Reference Range: Reference Range Not established Microalb/Creat Ratio 8 <30 mg/g creat [facility] Comment: The ADA defines abnormalities in albumin excretion as follows: Albuminuria Category Result (mg/g creatinine) Normal to Mildly increased <30 Moderately increased 30-299 Severely increased > OR = 300 The ADA recommends that at least two of three specimens collected within a 3-6 month period be abnormal before considering a patient to be within a diagnostic category. Urine specimen (specimen) 12/21/2024 8:33 AM CDT 12/21/2024 8:33 AM CDT Narrative Resulting Agency Comment Performing Organization Information: Site ID: [place] Name: [email or web address] Address: [address] [place] [id number] Director: Kristi Leonard MD Randee Pires TURRET PUNCH OPERATOR LAB URINE ORDERABLES Zoya l Result [facility] [address] [address] * CBC (12/21/2024 8:33 AM CDT) Pathologist [facility] WBC 10.1 3.8 - 10.8 Thousand/u L [facility] RBC 4.28 3.80 - 5.10 Million/uL [facility] Hemoglobin 13.4 11.7 - 15.5 g/dL [facility] Hematocrit 41.8 35.0 - 45.0 % [facility] MCV 97.7 80.0 - 100.0 fL [facility] MCH 31.3 27.0 - 33.0 pg [facility] MCHC 32.1 32.0 - 36.0 g/dL [facility] Comment: For adults, a slight decrease in the calculated MCHC value (in the range of 30 to 32 g/dL) is most likely not clinically significant; however, it should be interpreted with caution in correlation with other red cell parameters and the patient's clinical condition. RDW 11.9 11.0 - 15.0 % [facility] Platelets 237 140 - 400 Thousand/u L [facility] MPV 10.1 7.5 - 12.5 fL [facility] Blood specimen (specimen) 12/21/2024 8:33 AM CDT 12/21/2024 8:33 AM CDT Narrative Resulting Agency Comment Performing Organization Information: Site ID: [id number] Name: [facility] Address: [id number] [place] [address] Director: Kristi Leonard MD Randee Pires NP LAB BLOOD ORDERABLES Zoya l Result [facility] Jeff Fan [address] [facility] [place] [address] * (ABNORMAL) Renal function panel (12/21/2024 8:33 AM CDT) Glucose 142(H) 65 - 99 mg/dL [facility] Comment: Fasting reference interval For someone without known diabetes, a glucose value >125 mg/dL indicates that they may have diabetes and this should be confirmed with a follow-up test. BUN 37(H) 7 - 25 mg/dL [facility] Creatinine 1.46(H) 0.60 - 1.00 mg/dL [facility] eGFR CKD-EPI CR 2020 37(L) > OR = 60 mL/min/1.7 3m2 [facility] BUN/Creatinine Ratio 25(H) 6 - 22 (calc) [facility] Sodium 140 135 - 146 mmol/L [facility] Potassium 4.2 3.5 - 5.3 mmol/L [facility] Chloride 107 98 - 110 mmol/L [facility] Bicarbonate (CO2) 23 20 - 32 mmol/L [facility] Calcium 9.5 8.6 - 10.4 mg/dL [facility] Phosphorus 3.0 2.1 - 4.3 mg/dL [facility] Albumin 3.8 3.6 - 5.1 g/dL [facility] Blood specimen (specimen) 12/21/2024 8:33 AM CDT 12/21/2024 8:33 AM CDT Narrative Resulting Agency Comment Performing Organization Information: Site ID: [place] Name: [facility] Address: [address] [place] [address] Director: Kristi Leonard MD us Randee Pires TURRET PUNCH OPERATOR LAB BLOOD ORDERABLES Zoya l Result [facility] Fan [address] [place] [address] documented in this encounter Visit Diagnoses Diagnosis Stage 3b chronic kidney disease (HCC) documented in this encounter Care Teams Transmitter Chief Relationship Specialty Start Date End Date Robert Perez MD [address] [place] [address] PCP - General Family Medicine 04/20/19 documented as of this encounter
--- OUTSIDE RECORDS SUMMARY | 2025-01-06 15:51 | XMS_ITS | Encounter Summary ---
Author Organization [facility], [facility] Address [address] [address] Phone Care Team Providers Care Global Ceo Name Role Phone Robert Perez MD Primary Care Provider [phone] Encounter Details Date Type Department Care Team (Late st Contact Info) Description 01/19/2019 Orders Only [facility] [address] [address] Chronic kidney disease, stage 3 (moderate) (HCC) Social History Tobacco Use Types Packs/Day Years Used Date Smoking Tobacco: Never Assessed Comments Unknown Sex and Gender Information Value Date Recorded Sex Assigned at Not on file Legal Sex Female 10:06 AM EDT Gender Identity Not on file Sexual Orientation Not on file documented as of this encounter Plan of Treatment Upcoming Encounters Date Type Department Care Team (Late st Contact Info) Description 07/04/2025 1:00 PM CDT Office Visit [facility], [facility] [address] [place] [address] Randee Pires PATTERNMAKER APPRENTICE WOOD [address] [facility] [address] [place] [address] documented as of this encounter Visit Diagnoses Diagnosis Chronic kidney disease, stage 3 (moderate) documented in this encounter Care Teams Global Ceo Relationship Specialty Start Date End Date Robert Perez MD [address] [place] [address] PCP - General Family Medicine 04/20/19 documented as of this encounter
--- OUTSIDE RECORDS SUMMARY | 2025-01-06 15:51 | XMS_ITS | Clinical Summary ---
Author Organization [facility] Facility Address [address] [place] [address] Care Team Providers Care Waste Baler Name Role Phone Robert Perez MD Primary Care Provider [phone] Allergies Active Allergy Reactions Criticality Noted Date Comments Adhesive Tape 06/26/2022 Ciprofloxacin 10/19/2014 Other reaction(s): Unknown Latex Hives High 03/24/2023 Penicillins 10/19/2014 Other reaction(s): Unknown Medications * This document contains information received from the source organization and may not represent a complete record from that organization. rivaroxaban (XARELTO) 15 MG tablet Take 15 mg by mouth daily Active pantoprazole (PROTONIX) 40 MG EC tablet Take 40 mg by mouth daily Active dilTIAZem CD (CARDIZEM CD) 240 MG 24 hr capsule Take 240 mg by mouth daily 05/04/2018 Active acetaminophen (TYLENOL) 500 MG tablet Take 500 mg by mouth every 6 (six) hours if needed Active escitalopram (LEXAPRO) 10 MG tablet Take 10 mg by mouth 1 (one) time each day Active colestipol (COLESTID) 1 g tablet Take 1 g by mouth 2 (two) times a day 11/22/2020 Active simvastatin (ZOCOR) 10 MG tablet Take 10 mg by mouth 1 (one) time each day 10/03/2022 Active KLOR-CON 20 MEQ CR tablet Take 20 mEq by mouth 1 (one) time each day Active Empagliflozin (JARDIANCE PO) Take 10 mg by mouth 1 (one) time each day Active furosemide (LASIX) 20 MG tabletIndication s:Dyspnea on exertion Take 1 tablet (20 mg total) by mouth 1 (one) time each day Takes 20mg in AM 90 tablet 3 12/30/2023 Active losartan (COZAAR) 50 MG tablet TAKE 1 TABLET BY MOUTH TWICE A DAY 180 tablet 3 04/01/2024 Active ergocalciferol 1.25 MG (92214 UT) capsule Take 50,000 Units by mouth 1 (one) time per week 05/06/2024 Active Active Problems Problem Noted Date Diagnosed Date Adenocarcinoma of endometrium 03/28/2020 Body mass index 40+ - severely obese 02/23/2020 Dyspnea on exertion 09/16/2013 Paroxysmal atrial fibrillation 09/16/2013 Stage 3b chronic kidney disease Hypertension Gout Encounters Date Type Department Care Team Description 01/06/2025 2:30 PM CDT Office Visit [facility] [address] [place] [address] Randee Pires NP Stage 3b chronic kidney disease (HCC) (Primary Dx) 12/30/2024 Orders Only [facility] [address] [place] [address] Randee Pires NP Stage 3b chronic kidney disease (HCC) 12/27/2024 Telephone [facility] [address] [facility] [address] [place] [address] Flora Sorensen MD from Last 3 Months Immunizations Immunization Administration Dates Next Due Influenza (IM) Preservative Free 01/07/2019 Family History Medical History Relation Comments Heart disease Father Hypertension Father Kidney disease Father Heart disease Mother Relation Status Comments Father Mother Social History Tobacco Use Types Packs/Day Years Used Date Smoking Tobacco: Never Smokeless Tobacco: Never Tobacco Cessation:Counseling Given: Not Answered Alcohol Use Standard Drinks/Week Comments Never 0 [...] on file Sexual Orientation Not on file Last Filed Vital Signs Vital Sign Reading Time Taken Comments Blood Pressure 126/74 01/06/2025 2:27 PM CDT Pulse 102 01/06/2025 2:27 PM CDT Temperature 36.9 C (98.4 F) 11/10/2019 2:44 PM CDT Respiratory Rate - - Oxygen Saturation 95% 01/06/2025 2:27 PM CDT Inhaled Oxygen Concentration - - Weight 129 kg (284 lb 9.6 oz) 01/06/2025 2:27 PM CDT Height 162.6 cm (5' 4 ) 01/06/2025 2:27 PM CDT Body Mass Index 48.85 01/06/2025 2:27 PM CDT Plan of Treatment Upcoming Encounters Date Type Department Care Team (Late st Contact Info) Description 07/04/2025 1:00 PM CDT Office Visit [facility] [address] [place] [address] Randee Pires NP [address] [facility] [address] [place] [address] Health Maintenance Due Date Last Done Comments Pneumococcal Vaccine: 50+ Years (2 of 2 - PPSV23, PCV20, or PCV21) 12/31/2017 11/05/2017 Influenza Vaccine (#1) 2024 , 01/13/2023, 01/07/2019 Hepatitis B Vaccine Aged Out 07/09/1999, 08/23/1998, 03/16/1998 No longer eligible based on patient's age to complete this topic Pneumococcal Vaccine: Peds (0 to 5 Years) and At-Risk Patients (6 to 49 Years) Discontinued 11/05/2017 Procedures Procedure Name Priority Date/Time Associated Diagnosis Comments PTH, INTACT Routine 12/21/2024 8:33 AM CDT Stage 3b chronic kidney disease (HCC) URINE ALBUMIN / CREATININE RATIO Routine 12/21/2024 8:33 AM CDT Stage 3b chronic kidney disease (HCC) CBC Routine 12/21/2024 8:33 AM CDT Stage 3b chronic kidney disease (HCC) RENAL FUNCTION PANEL Routine 12/21/2024 8:33 AM CDT Stage 3b chronic kidney disease (HCC) from Last 3 Months Results * Urine albumin / creatinine ratio (12/21/2024 [...] Agency Comment Performing Organization Information: Site ID: [place] Name: [facility] Address: [address] [place] [address] Director: Kristi Leonard MD Randee Pires GENERAL ASSEMBLER INSTALLER LAB URINE ORDERABLES Zoya thomas Result [facility] [address] [place] [address] * CBC (12/21/2024 8:33 AM CDT) WBC 10.1 3.8 - 10.8 Thousand/u L [...] Performing Organization Information: Site ID: [id number] Name: [facility] Address: [address] [place] [address] Director: Kristi Leonard MD Randee Pires GENERAL ASSEMBLER INSTALLER LAB BLOOD ORDERABLES Zoya thomas Result [facility] [id number] [place] [phone] * (ABNORMAL) PTH, intact (12/21/2024 8:33 AM CDT) Parathyroid Hormone, Intact 85(H) 16 - 77 pg/mL [facility] Comment: Interpretive Guide Intact PTH Calcium ------- Normal Parathyroid Normal Normal Hypoparathyroidism Low or Low Normal Low Hyperparathyroidism Primary Normal or High High Secondary High Normal or Low Tertiary High High Non-Parathyroid Hypercalcemia Low or Low Normal High Blood specimen (specimen) 12/21/2024 8:33 AM CDT 12/21/2024 8:33 AM CDT Narrative Resulting Agency Comment Performing Organization Information: Site ID: [id number] Name: [facility] Address: [address] [place] [address] Director: Kristi Leonard MD Randee Pires GENERAL ASSEMBLER INSTALLER LAB BLOOD ORDERABLES Zoya l Result [facility] [address] [place] [address] * (ABNORMAL) Renal function panel (12/21/2024 8:33 [...] Agency Comment Performing Organization Information: Site ID: [place] Name: [facility] Address: [address] [place] [address] Director: Kristi Leonard MD Randee Pires GENERAL ASSEMBLER INSTALLER LAB BLOOD ORDERABLES Zoya l Result [facility] [address] [place] [id number] from Last 3 Months Insurance Medicare [employer] [id number] Care Teams Waste Baler Relationship Specialty Start Date End Date Robert Perez MD [address] [place] [address] PCP - General Family Medicine 04/20/19
--- OUTSIDE RECORDS SUMMARY | 2025-01-06 15:51 | XMS_ITS | Clinical Summary ---
[facility] Address [address] [facility] [place] [address] Care Team Providers Care Store Lead Name Role Phone Robert Perez MD Primary Care Provider [phone] Allergies Active Allergy Reactions Criticality Noted Date Comments Adhesive Tape-Silicones Rash 03/28/2020 Ciprofloxacin Shortness of Breath/Wheezing,Swel ling,Other (See Comments) 10/19/2014 Swelling around mouth & inside lips with blisters all around inside mouth Penicillins Rash 10/19/2014 Mild years ago can not remember any other details Medications pantoprazole (PROTONIX) 40 mg Tablet, Delayed Release (E.C.) Take 40 mg by mouth daily. Active losartan (COZAAR) 100 mg tablet Take 100 mg by mouth daily. Active simvastatin (ZOCOR) 10 mg tablet Take 10 mg by mouth Daily LATE. Active acetaminophen (TYLENOL) 500 mg tablet Take 500 mg by mouth every 6 hours as needed. Active rivaroxaban (XARELTO) 20 mg Tablet Take 20 mg by mouth daily. Active escitalopram oxalate (LEXAPRO) 10 mg tablet Take 10 mg by mouth daily. 02/13/2020 Active VENTOLIN HFA 90 mcg/actuation inhaler 03/30/2020 Active diltiaZEM (Cartia XT) 240 mg Controlled Delivery 24 hour capsule TAKE ONE CAPSULE BY MOUTH DAILY 90 Capsule 3 04/21/2020 Active chlorthalidone (HYGROTON) 25 mg tablet Take 1 tablet by mouth once daily 90 Tablet 3 06/26/2020 Active loperamide (IMODIUM) 2 mg capsule Take 2 mg by mouth every 3 hours as needed for Diarrhea/Loo se Stools. Active colestipoL (Colestid) 1 gram tablet Take 1 Tablet (1,000 mg) by mouth 2 times daily. 60 Tablet 11 09/21/2020 Active Active Problems Problem Noted Date Diagnosed Date Chronic diarrhea 09/21/2020 FIGO Stage II Grade 2 Endometrial adenocarcinoma 03/28/2020 Cancer Staging:Pathologic stage from 03/30/2020:FIGO Stage II(pT2, pN0(sn), cM0) - Signed by Amanda Kaye MD on 03/30/2020 Endometrial cancer determined by uterine biopsy 02/23/2020 Morbid obesity with body mass index of 40.0-49.9 02/23/2020 Near syncope 09/16/2013 Racing heart beat 09/16/2013 PAF (paroxysmal atrial fibrillation) 09/16/2013 HBP (high blood pressure) 09/16/2013 Chest discomfort 09/16/2013 LUNDBERG (dyspnea on exertion) 09/16/2013 Immunizations Immunization Administration Dates Next Due INFLUENZA VACCINE HIGH DOSE QUADRIVALENT 65 YR U P PF IM 01/06/2020 INFLUENZA VACCINE QUADRIVALE NT 6 MOS UP CELL DERIVED PF IM 01/07/2019 Influenza Vaccine Tri Split 4+ Pf Im 01/07/2019 Family History Medical History Relation Name Comments Breast Cancer Neg Hx Colon Cancer Neg Hx Ovarian Cancer Neg Hx Uterine Cancer Neg Hx Relation Name Status Comments Father heart disease. cabg. stents Mother Alive Sister 1 Alive Sister 2 Alive Social History Tobacco Use Types Packs/Day Years Used Date Smoking Tobacco: Never Smokeless Tobacco: Never Tobacco Cessation:Counseling Given: No Alcohol Use Standard Drinks/Week Comments No 0 (1 standard drink = 0.6 oz pur e alcohol) Comments No Sex and Gender Information Value Date Recorded Sex Assigned at Not on file Legal Sex Female 10:12 AM CDT Gender Identity Not on file Sexual Orientation Not on file Last Filed Vital Signs Vital Sign Reading Time Taken Comments Blood Pressure 134/65 09/21/2020 12:21 PM CDT Pulse 63 09/21/2020 12:21 PM CDT Temperature 36.3 C (97.4 F) 08/08/2020 2:01 PM CDT Respiratory Rate 20 07/18/2020 3:27 PM CDT Oxygen Saturation 95% 08/08/2020 2:01 PM CDT Inhaled Oxygen Concentration - - Weight 125.2 kg (276 lb) 09/21/2020 12:21 PM CDT Height 162.6 cm (5' 4 ) 09/21/2020 12:21 PM CDT Body Mass Index 47.38 09/21/2020 12:21 PM CDT Plan of Treatment Health Maintenance Due Date Last Done Comments DTAP/TDAP/TD VACCINES (1 - Tdap) 07/31/1966 PNEUMOCOCCAL VACCINE 50+ YEA RS (1 of 1 - PCV) 07/31/1997 ZOSTER VACCINE (1 of 2) 07/31/1997 OSTEOPOROSIS SCREENING 07/31/2012 RSV VACCINE (60+ or ) (1 - 1-dose 75+ series) 07/31/2022 INFLUENZA VACCINE (#1) 2024 , 01/07/2019, 01/07/2019 Insurance MEDICARE PART A AND B Advance Directives For more information, please contact: [phone] * Full Code (Latest Code Status on File) Date Activated Date Inactivated Comments 03/28/2020 1:16 PM 03/29/2020 6:57 PM Care Teams Store Lead Relationship Specialty Start Date End Date Robert Perez MD [address] [address] [place] [id number] PCP - General Family Practice 12/22/17
--- OUTSIDE RECORDS SUMMARY | 2025-01-06 15:51 | XMS_ITS | Encounter Summary ---
Author Organization [facility] Address [address] [place] [address] Care Team Providers Care Thermodynamics Professor Name Role Phone Robert Perez MD Primary Care Provider Reason for Referral * CT Scan (Routine) - Closed Specialty Diagnoses / Procedures Referred By Contac t Referred To Contact Diagnoses Malignant neoplasm of endometrium (CMS/HCC) Procedures CT GUIDED RAD THERAPY [facility] Monica Myers MD [address] [place] [address] Phone: tel: fax: Referral ID Status Reason Start Date Expiration Date Visits Re quested Visits Authorized [id number] Closed 06/08/2020 07/09/2021 1 1 C DEPARTMENT CHAIR * CT Scan (Routine) - Closed Specialty Diagnoses / Procedures Referred By Contac t Referred To Contact Diagnoses Malignant neoplasm of endometrium (CMS/HCC) Procedures CT GUIDED RAD THERAPY [facility] Monica Myers MD [address] [place] [address] Phone: tel: fax: Referral ID Status Reason Start Date Expiration Date Visits Re quested Visits Authorized [id number] Closed 06/08/2020 07/09/2021 1 1 C DEPARTMENT CHAIR Encounter Details Date Type Department Care Team (Late st Contact Info) Description 06/08/[address] [facility] [address] [place] [address] Monica Myers MD [address] [place] [address] Malignant neoplasm of endometrium (CMS/HCC) Social History Tobacco Use Types Packs/Day Years Used Date Smoking Tobacco: Never Smokeless Tobacco: Never Alcohol Use Standard Drinks/Week Comments No 0 (1 standard drink = 0.6 oz pur e alcohol) Comments No Sex and Gender Information Value Date Recorded Sex Assigned at Not on file Legal Sex Female 10:12 AM CDT Gender Identity Not on file Sexual Orientation Not on file COVID-19 Exposure Response Date Recorded In the last month, have you been in contact with someone who was confirmed or suspected to have Coronavirus / COVID-19? No / Unsure 06/09/2020 1:47 PM MUSIC DEPARTMENT CHAIR documented as of this encounter Plan of Treatment Not on file documented as of this encounter Results * CT GUIDED RAD THERAPY FIELD (06/16/2020 2:53 PM MUSIC DEPARTMENT CHAIR) Narrative 06/16/2020 2:53 PM MUSIC DEPARTMENT CHAIR Order information only. Exam was auto-finalized. Monica Myers MD CT ORDERABLES Final Resul t * CT GUIDED RAD THERAPY FIELD (06/09/2020 2:49 PM MUSIC DEPARTMENT CHAIR) Narrative 06/09/2020 2:49 PM MUSIC DEPARTMENT CHAIR Order information only. Exam was auto-finalized. us Monica Myers MD CT ORDERABLES Final Resul t documented in this encounter Visit Diagnoses Diagnosis Malignant neoplasm of endometrium (CMS/HCC) Malignant neoplasm of corpus uteri, except isthmus Malignant neoplasm of endometrium (CMS/HCC) Malignant neoplasm of corpus uteri, except isthmus Malignant neoplasm of endometrium (CMS/HCC) Malignant neoplasm of corpus uteri, except isthmus documented in this encounter Care Teams Thermodynamics Professor Relationship Specialty Start Date End Date Robert Perez MD [address] [phone] PCP - General Family Practice 12/22/17 documented as of this encounter
--- OUTSIDE RECORDS SUMMARY | 2025-01-06 15:51 | XMS_ITS | Encounter Summary ---
Author Organization [facility] Address [address] [place] [address] Care Team Providers Care Horseshoer Name Role Phone Robert Perez MD Primary Care Provider [phone] Reason for Referral * CT Scan (Routine) - Closed Specialty Diagnoses / Procedures Referred By Contac t Referred To Contact Diagnoses Malignant neoplasm of endometrium (CMS/HCC) Procedures CT GUIDED RAD THERAPY FIELD Monica Myers MD [address] [place] [address] Phone: tel: fax: Referral ID Status Reason Start Date Expiration Date Visits Re quested Visits Authorized [id number] Closed 05/08/2020 06/08/2021 1 1 S PRODUCTION MACHINE OPERATOR Encounter Details Date Type Department Care Team (Late st Contact Info) Description 05/08/2020 Ancillary Orders [facility] [address] [address] Monica Myers MD [address] [place] [address] Malignant neoplasm of endometrium (CMS/HCC) [...] have Coronavirus / COVID-19? No / Unsure 05/10/2020 10:45 AM GLASS PRODUCTION MACHINE OPERATOR documented as of this encounter Plan of Treatment Not on file documented as of this encounter Results * CT GUIDED RAD THERAPY FIELD (05/10/2020 1:57 PM GLASS PRODUCTION MACHINE OPERATOR) Narrative 05/10/2020 1:57 PM GLASS PRODUCTION MACHINE OPERATOR Order information only. Exam was auto-finalized. us Monica Myers MD CT ORDERABLES Final Resul t documented in this encounter Visit Diagnoses Diagnosis Malignant neoplasm of endometrium (CMS/HCC) Malignant neoplasm of corpus uteri, except isthmus Malignant neoplasm of endometrium (CMS/HCC) Malignant neoplasm of corpus uteri, except isthmus documented in this encounter Care Teams Horseshoer Relationship Specialty Start Date End Date Robert Perez MD [address] [address] PCP - General Family Practice 12/22/17 documented as of this encounter
--- OUTSIDE RECORDS SUMMARY | 2025-01-06 15:52 | XMS_ITS | Encounter Summary ---
Author Organization [facility] Address [address] [address] Phone Care Team Providers Care Supervisor Molding Name Role Phone Robert Perez MD Primary Care Provider [phone] Reason for Visit * Reason Comments Med Change Request Encounter Details Date Type Department Care Team (Late Contact Info) Description 02/20/2022 Refill [facility] [address] [address] Randee Pires NP [address] [address] Hypertension Social History Tobacco Use Types Packs/Day Years [...] Encounters Date Type Department Care Team (Late Contact Info) Description 07/04/2025 1:00 PM CDT Office Visit [facility] [address] [place] [address] Randee Pires NP [address] [address] documented as of this encounter Visit Diagnoses Diagnosis Hypertension documented in this encounter Care Teams Supervisor Molding Relationship Specialty Start Date End Date Robert Perez MD [address] [place] [address] PCP - General Family Medicine 04/20/19 documented as of this encounter
--- OUTSIDE RECORDS SUMMARY | 2025-01-06 15:52 | XMS_ITS | Clinical Summary ---
Author Organization [facility] Nasreen tone Address [address] [place] [address] Care Team Providers [facility] Psychiatrist Name Role Phone Robert Perez MD Primary Care Provider [phone] Allergies Active Allergy Reactions Criticality Noted Date Comments Adhesive Tape-Silicones Rash 03/28/2020 Ciprofloxacin Shortness of Breath/Wheezing,Swel ling,Other (See Comments) 10/19/2014 Swelling around mouth & inside lips with blisters all around inside mouth Empagliflozin Other (See Comments) 06/10/2023 Uti like sx Latex, Natural Rubber Hives High 03/24/2023 Penicillins Rash 10/19/2014 Mild years ago can not remember any other details Medications rivaroxaban (XARELTO) 20 mg Tablet Take 20 mg by mouth daily. 8 Active acetaminophen (TYLENOL) 500 mg tablet Take 500 mg by mouth every 6 hours as needed. 8 Active escitalopram oxalate (LEXAPRO) 10 mg tablet Take 10 mg by mouth daily. 0 Active pantoprazole (PROTONIX) 40 mg Tablet, Delayed Release (E.C.) Take 40 mg by mouth daily. Active losartan (COZAAR) 100 mg tablet Take 100 mg by mouth daily. Active simvastatin (ZOCOR) 10 mg tablet Take 10 mg by mouth daily. 2 Active furosemide (Lasix) 40 mg tablet Take 40mg in the AM and 20mg in the PM 110 Tablet 3 4 Active CPAP / BIPAP supplies Resmed autoCPAP with EPAPmin=4cwp and EPAPmax=20cwpLe ngth of need: 99 months Mask Type: per patient comfort with headgear every 6 months, mask only every 3 months,as needed cushions per month. Tubing: heated 1 every 3 months, water chamber 1 every 6 months, chin strap 1 every 6 months, filters disposable 2 per month, filters reusable 1 per 6 months.Efficacy data download and mask fitting. Please link efficiency data download to Dr. Jing agarwal. 1 Each 4 Active ergocalciferol (VITAMIN D2) 50,000 unit capsule Take 50,000 Units by mouth every 7 days. Active Jardiance 10 mg tablet Take 1 Tablet by mouth daily. 4 Active Klor-Con M20 20 mEq Extended Release tablet TAKE 1 TABLET BY MOUTH DAILY 90 Tablet 3 4 Active diltiaZEM (CARDIZEM CD) 240 mg Controlled Delivery 24 hour capsule TAKE 1 CAPSULE BY MOUTH EVERY DAY 90 Capsule 3 4 Active colestipoL (COLESTID) 1 gram tablet Take 1 tablet by mouth twice daily 180 Tablet 5 Active Hospital, Clinic, or Other Facility Administered Medication Ordered Dose Route Frequency Start Date End Date Status triamcinolone acetonide (KENALOG-40) injectable suspension 80 mgIndications:Primar y osteoarthritis of left shoulder,Primary osteoarthritis of right knee 80 mg Intra-arTIC u ONE TIME ONLY 12/20/2024 5 Ended Active Problems Problem Noted Date Diagnosed Date Chronic diarrhea 09/21/2020 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 03/28/2020 Cancer Staging:Pathologic stage from 03/30/2020:FIGO Stage II(pT2, pN0(sn), cM0) - Signed by Amanda Kaye MD on 03/30/2020 Endometrial cancer determined by uterine biopsy 02/23/2020 Morbid obesity with body mass index of 40.0-49.9 02/23/2020 Racing heart beat 09/16/2013 Chest discomfort 09/16/2013 PAF (paroxysmal atrial fibrillation) 09/16/2013 LUNDBERG (dyspnea on exertion) 09/16/2013 Near syncope 09/16/2013 HBP (high blood pressure) 09/16/2013 Encounters Date Type Department Care Team Description 12/21/2024 External Device Data STL ABSTRACTION Provider, Abstract 12/20/2024 10:30 AM CDT Office Visit [facility] [place] [address] [place] [id number] Morris Benton MD Primary osteoarthritis of left shoulder (Primary Dx); Primary osteoarthritis of right knee 12/20/2024 10:15 AM CDT Ancillary Procedure [place] [address] [address] [place] [phone] Morris Benton MD Primary osteoarthritis of left shoulder 11/23/2024 External Device Data STL ABSTRACTION Provider, Abstract 11/09/2024 External Device Data STL ABSTRACTION Provider, Abstract 10/20/2024 External Device Data STL ABSTRACTION Provider, Abstract 10/19/2024 External Device Data STL ABSTRACTION Provider, Abstract 10/10/2024 Refill [facility] Gastroenterology- [place] [address] [place] [address] Gaetano Serrano MD from Last 3 Months Immunizations Immunization Administration Dates Next Due INFLUENZA [...] drink = 0.6 oz pur e alcohol) Feeling Safe Answer Date Recorded Are you in a relationship wi th someone who hurts you emotionally and/or physically? No 07/09/2023 Comments No Sex and Gender Information Value Date Recorded Sex Assigned at Not on file Legal Sex Female 12:19 AM PATROL JUDGE Gender Identity Not on file Sexual Orientation Not on file Last Filed Vital Signs Vital Sign Reading Time Taken Comments Blood Pressure 120/68 07/20/2024 3:07 PM CDT Pulse 103 07/20/2024 3:07 PM CDT Temperature 36.1 C (97 F) 07/20/2024 3:07 PM CDT Respiratory Rate 24 09/12/2023 11:13 AM CDT Oxygen Saturation 95% 07/20/2024 3:07 PM CDT Inhaled Oxygen Concentration - - Weight 127 kg (280 lb) 12/20/2024 10:31 AM CDT Height 162.6 cm (5' 4 ) 12/20/2024 10:31 AM CDT Body Mass Index 48.06 12/20/2024 10:31 AM CDT Plan of Treatment Upcoming Encounters Date Type Department Care Team (Late st Contact Info) Description 01/17/2025 10:30 AM CDT Telephone Check Up [facility] Gastroenterology- [place] [address] [place] [address] Dorina Barbosa PA-C [address] [place] [address] 01/18/2025 2:30 PM CDT Office Visit [facility] Oncology [place] [address] [place] [address] Bruna Rao FNP [address] [place] [address] 07/26/2025 1:00 PM CDT Office Visit [facility] [address] [place] [address] Gerson Castellon MD [address] [place] [address] Health Maintenance Due Date Last Done Comments Traditional Medicare (ACO) A nnual Wellness Visit 07/31/1966 RSV VACCINE (60+ or ) (1 - 1-dose 75+ series) 07/31/2022 OSTEOPOROSIS SCREENING 11/26/2022 11/26/2017 ZOSTER VACCINE (3 of 3) 01/22/2023 11/27/2022, 12/18 INFLUENZA VACCINE (#1) 2024 , 01/13/2023, 04/02/2022, Additional history exists COVID-19 Vaccine (2023-2 5 season) 2024 01/16/2024, 12/24/2022, 10/26/2021, Additional history exists DTAP/TDAP/TD VACCINES (2 - T d or Tdap) 11/06/2027 11/05/2017 COLORECTAL SCREENING Discontinued 12/11/2011 PNEUMOCOCCAL VACCINE 50+ YEARS Completed 11/27/2022 , 11/05/2017 Colorectal Cancer Screening Discontinued FIT-DNA Q 3 years Discontinued 01/21/2023 FIT/FOBT Q 1 year Discontinued Flex Sig/CT Colonography Q 5 years Discontinued Procedures Procedure Name Priority Date/Time Associated Diagnosis Comments XR SHOULDER 2+ VW LEFT Routine 12/20/2024 10:36 AM CDT Primary osteoarthritis of left shoulder COLON CANCER SCREEN, STOOL DNA Routine 01/21/2023 1:38 PM CDT Screening for colon cancer from Last 3 Months or Most Recently Relevant to Health Maintenance Results * XR SHOULDER 2+ VW LEFT (12/20/2024 10:36 AM CDT) Anatomical Region Laterality Modality Upper Extremity Computed Radiogr aphy Narrative 12/20/2024 4:10 PM CDT Left shoulder x-rays reviewed from December 20, 2024 showing advanced degenerative changes of the left shoulder glenohumeral joint with advanced osteophytic formation subchondral sclerotic changes noted us Morris Benton MD DIAGNOSTIC IMAGING ORDERAB LES Final Result * COLON CANCER SCREEN, STOOL DNA (01/21/2023 1:38 PM CDT) COLOGUARD RESULT Negative Negative [facility] Comment: NEGATIVE TEST RESULT. A negative Cologuard result indicates a low likelihood that a colorectal cancer (CRC) or advanced adenoma (adenomatous polyps with more advanced pre-malignant features) is present. The chance that a person with a negative Cologuard test has a colorectal cancer is less than 1 in 1500 (negative predictive value >99.9%) or has an advanced adenoma is less than 5.3% (negative predictive value 94.7%). These data are based on a prospective cross-sectional study of 10,000 individuals at average risk for colorectal cancer who were screened with both Cologuard and colonoscopy. (Mehul Khan al, N Engl J Med 2014;370(14):1515-7734) The normal value (reference range) for this assay is negative. COLOGUARD RE-SCREENING RECOMMENDATION: Periodic colorectal cancer screening is an important part of preventive healthcare for asymptomatic individuals at average risk for colorectal cancer. Following a negative Cologuard result, the [place] [employer] and U.S. Multi-Society Task Force screening guidelines recommend a Cologuard re-screening interval of 3 years. References: [place] [employer] Guideline for Colorectal Cancer Screening: https://www.cancer.org/cancer/rykvg-egssle-sqhhls/ogpihvajg-ejvnpsgnn-ngfjcoo/ac s-rec ommendations.html.; Jj DK, Anupam HUMPHREY, Ihsan WilliamsonK, Colorectal Cancer Screening: Recommendations for Physicians and Patients from the U.S. Multi-Society Task Force on Colorectal Cancer Screening , Am J Gastroenterology 2017; 112:8887-6318. TEST DESCRIPTION: Composite algorithmic analysis of stool DNA-biomarkers with hemoglobin immunoassay. Quantitative values of individual biomarkers are not reportable and are not associated with individual biomarker result reference ranges. Cologuard is intended for colorectal cancer screening of adults of either sex, 45 years or older, who are at average-risk for colorectal cancer (CRC). Cologuard has been approved for use by the U.S. FDA. The performance of Cologuard was established in a cross sectional study of average-risk adults aged 50-84. Cologuard performance in patients ages 45 to 49 years was estimated by sub-group analysis of near-age groups. Colonoscopies performed for a positive result may find as the most clinically significant lesion: colorectal cancer [4.0%], advanced adenoma (including sessile serrated polyps greater than or equal to 1cm diameter) [20%] or non- advanced adenoma [31%]; or no colorectal neoplasia [45%]. These estimates are derived from a prospective cross-sectional screening study of 10,000 individuals at average risk for colorectal cancer who were screened with both Cologuard and colonoscopy. (Mehul Ceron et al, N Engl J Med 2014;370(14):7852-2153.) Cologuard may produce a false negative or false positive result (no colorectal cancer or precancerous polyp present at colonoscopy follow up). A negative Cologuard test result does not guarantee the absence of CRC or advanced adenoma (pre-cancer). The current Cologuard screening interval is every 3 years. ([place] [employer] and U.S. Multi-Society Task Force). Cologuard performance data in a 10,000 patient pivotal study using colonoscopy as the reference method can be accessed at the following location: www.[employer]/results. Additional description of the Cologuard test process, warnings and precautions can be found at www.[employer]. Stool STOOL SPECIMEN / Unknown 01/21/2023 1:38 PM CDT 01/22/2023 5:29 PM CDT us Nikole Vera PA BODY FLUIDS AND STOOLS Final Res ult [employer] [facility] # [id number] [place] [address] from Last 3 Months or Most Recently Relevant to Health Maintenance Insurance MEDICARE PART A AND B [employer] [facility] [place] [id number] Care Teams [facility] Psychiatrist Relationship Specialty Start Date End Date Robert Perez MD [address] [address] PCP - General Family Practice 12/22/17
--- OUTSIDE RECORDS SUMMARY | 2025-01-06 15:52 | XMS_ITS | Continuity of Care Document ---
Author Organization [facility] Maricarmen, LCharis, [facility] ([facility]) Address [address] [facility] [place] [address] Care Team Providers Care Belt Picker Name Role Phone BROWN GLASS Primary Care Provider Unavailabl e Assessment No assessment recorded. Plan of Treatment Reminders Order Date Submit Date Provider Last Modified By Organization Details Last Modified Time Details Appointments ACUTE VISIT 025 03:10PM WALK-IN Not available Not available Not available Lab None recorde d. Referral None recorde d. Procedures None recorde d. Surgeries None recorde d. Imaging None recorde d. Medication Orders None recorde d. Patient TargetsNo targets recorded. Patient InstructionsNo instructions recorded. Reason for Referral None Reported. Problems Name Problem SNOMED Code Status Onset Date Resolution Date Notes Provider Name and Address Organization Details Recorded Time Benign hyperten desmond 61635369 Completed 201309/17/2013 Shay martha Hyperten desmond - Status is Inactive ; 09/18/19 14 6:24PM by Carlotta Elizabeth CMT, Annotati on/Addgallito dum; Promoted ; acuity set as *; Not Available [facility] 3 03:16:01 Arthropa thy 718196482 Active 2021 ARTHRITI S Sherrie jacobo [facility] 5 15:04:15 Fibromya lgia 910720780 Active 2021 [facility] 15:04:15 Knee pain Active 2021 Sherrie jacobo [facility] 5 15:04:15 Acute deep vein thrombos is of lower limb 02176330256 8 Completed 202108/26/2024 DVT OF LEG (DEEP VENOUS THROMBOS IS) Sherrie jacobo, [facility] 5 15:03:31 Atrial fibrilla tion 29017338 Active 2021 JUD LEON [facility], [facility], [facility] 4 13:33:18 Dysthymi a 93869972 Active 2021 ANXIETY WITH DEPRESSI ON Sherrie Durga [facility], [facility], [facility] 5 15:04:15 Gouty arthropa thy 934033059 Active 2022 GOUT, ARTHRITI S Sherrie Calixto [facility], [facility], [facility] 5 15:04:15 Edema of lower extremit y 072668984 Active 2023 Sherrie Calixto [facility], [facility] 5 15:04:15 Morbid obesity 670164974 Active 2023 Sherrie Calixto [facility], [facility] 5 15:04:15 [facility] hyperten desmond 38950536 Active 2023 JUD LEON [facility], [facility] 4 13:39:28 Congesti ve heart failure 30412588 Active 2023 JUD LEON [facility], [facility] 4 13:38:58 Chronic kidney disease 835254608 Active 2023 JUD LEON [facility], [facility] 4 13:39:10 Endometr ial carcinom a 957484774 Active 2023 FIIGP stage II (pT2, pN0(sn), cM0 Sherrie Durga [facility], RajatC[facility]ero 5 15:04:15 Dysuria 34897009 Active 2024 Sherrie Durga [facility], LGueroL.CGuero 5 09:12:42 Hyperten sive heart AND chronic kidney disease with congesti ve heart failure 28814909774 107 Active 2024 Sherriegiacomo Calixto [facility], [facility] 5 15:04:15 Chronic kidney disease stage 3B 822405071 Active 2024 Sherrie Durga [facility], LGueroL.C[facility]ero 5 15:04:15 Abnormal urine odor 8692894 Active 2024 [facility] Durga [facility], RajatCGuero 15:03:22 Problem Notes None recorded. Procedures Surgical History Date Name Laterality Status Provider Name and Address Organization Details Recorded Time 11/28/19 23 Joint Inj Kenalog- Shoulder, Hip, Knee completed Brown Glass MD [address] [place] [address], [id number], [facility], Diana 11/27/2022 10:15:00 01/06/20 18 arthroscopic meniscectomy completed [facility], Diana 11/04/2023 13:42:40 12/11/19 12 Colonoscopy completed [facility], Diana 11/04/2023 13:43:20 Cholecystectomy completed [facility], Diana 11/04/2023 13:41:18 radical hysterectomy completed [facility], Diana 11/04/2023 13:41:36 Appendectomy completed [facility], [place] 11/04/2023 13:41:42 Imaging Results None recorded. Procedure Notes None recorded. Medical Equipment None Reported. Allergies Allergen ID Allergen Name Allergen Category Reaction Reaction Severity Criticality Documentation Date Start Date Code Code System Note Provider Name and Address Organization Details Recorded Time 56088 Non-stero idal anti-infl ammatory agent (substanc e) medicatio n other severe high 11/02/2022 64972 5008 SNOMED React ion: Chron ic Kidne y Disea se [facility] 4 13:34:38 16076 Latex Exam Gloves medicatio n hives itching mild mild low 11/02/2022 Amandaliza Caldwell [facility], LGueroL.CGuero 4 13:34:30 35067 Substance with quinolone structure and antibacte rial mechanism of action (substanc e) medicatio n Not available Not available low 05/06/2024 27742 1999 SNOMED Use with cauti on, only if neces terese Balderas Durga [facility], [facility] 5 10:03:11 Medications Name Sig Start Date Stop Date Status Note LastModified by Organization Details LastModified Time losartan 50 mg tablet TAKE 1 TABLET BY MOUTH TWICE DAILY active Not Available Not Available No t Available furosemid e 40 mg tablet TAKE 1 TABLET BY MOUTH EVERY DAY FOR FLUID active Not Available Not Available No t Available oxybutyni n chloride ER 10 mg tablet,ex tended release 24 hr TAKE 1 TABLET BY MOUTH EVERY DAY 11/27 completed Not Available Not Available Not Available phenazopy ridine 200 mg tablet TAKE 1 TABLET BY MOUTH THREE TIMES A DAY FOR 2 DAYS 09/16 completed Not Available Not Available Not Available ondansetr on HCl 4 mg tablet TAKE 1 TO 2 TABLETS BY MOUTH EVERY 8 HOURS NEEDED FOR NAUSEA AND VOMITING active Not Available Not Available No t Available simvastat in 10 mg tablet Take 1 tablet by mouth once daily 2024 active Not Available Not Available Not Avai lable potassium chloride ER 10 mEq tablet,ex tended release TAKE 2 TABLETS BY MOUTH ONCE DAILY 08/26 completed Not Available Not Available Not Available chlorthal idone 25 mg tablet TAKE 1 TABLET BY MOUTH EVERY DAY 11/03 completed Not Available Not Available Not Available sulfameth oxazole 800 mg-trimet hoprim 160 mg tablet TAKE 1 TABLET BY MOUTH EVERY 12 HOURS FOR 10 DAYS 08/26 completed Not Available Not Available Not Available spironola ctone 25 mg tablet TAKE 1 TABLET BY MOUTH 1 TIME EACH DAY. 10/26 completed Not Available Not Available Not Available ceftriaxo ne 1 gram solution for injection Take 1 g by injectio n route for 1 day. 08/26 completed pt tolerate d injectio n well. She sat for 30 minutes followin g injectio n and has no adverse reaction noted Not Available Not Available Not Available pantopraz ole 40 mg tablet,de layed release TAKE 1 BY MOUTH ONCE DAILY 2024 active Not Available Not Available Not Avai lable Cartia XT 240 mg capsule,e xtended release TAKE 1 CAPSULE BY MOUTH ONCE DAILY active Not Available Not Available No t Available furosemid e 20 mg tablet TAKE 1 TABLET BY MOUTH IN THE MORNING 08/26 completed Not Available Not Available Not Available ergocalci ferol (vitamin D2) 1,250 mcg (50,000 unit) capsule Take 1 capsule by mouth once a week 2024 active Not Available Not Available Not Avai lable cefdinir 300 mg capsule Take 1 capsule every 12 hours by oral route for 5 days. 09/07 completed Not Available Not Available Not Available losartan 100 mg tablet TAKE 1 TABLET BY MOUTH EVERY DAY *NEEDS APPT* 11/27 completed Not Available Not Available Not Available colestipo l 1 gram tablet TAKE 1 TABLET BY MOUTH TWICE DAILY active Not Available Not Available No t Available escitalop manny 10 mg tablet Take 1 tablet by mouth once daily 2024 active Not Available Not Available Not Avai lable Klor-Con M20 mEq tablet,ex tended release Take 1 tablet every day by oral route for 90 days. 2023 active Not Available Not Available Not Avai lable Klor-Con M10 mEq tablet,ex tended release TAKE 2 TABLETS EVERY DAY 08/26 completed Not Available Not Available Not Available nitrofura ntoin monohydra te/macroc rystals 100 mg capsule TAKE 1 CAPSULE BY MOUTH EVERY 12 HOURS FOR 5 DAYS 09/16 completed Not Available Not Available Not Available hydralazi ne every 6 hours as needed for for elevated bp 11/03 completed take if bp systolic is over 170 or diastoli c over 90 Not Available Not Available Not Available hydrocort isone three times daily, as needed 11/03 completed Not Available Not Available Not Available Vitamin D weekly 11/27 completed 436; Recorded 06/03/19 23 7:38AM by Jud Leon LPN (Authori yao through Brown Glass MD), Refill Request; Refill Quantity : 4; Capsule; Not Available Not Available Not Available colestipo l twice a day 11/27 completed 0; Recorded 04/02/20 1:43PM by Jud Leon LPN, Office Visit; Not Available Not Available Not Available Cartia XT daily 11/27 completed from cardiolo gy. historic update; Recorded 07/09/19 9:59AM by Jud Leon LPN, Office Visit; Refill Quantity : 0; Not Available Not Available Not Available escitalop manny oxalate daily 11/27 completed 436; Recorded 12/26/19 11:57AM by Jud Leon LPN (Authori yao through Brown Glass MD), Annotati on/Adden dum; Refill Quantity : 90; Tablet; Not Available Not Available Not Available Xarelto 15 mg tablet TAKE 1 TABLET BY MOUTH ONCE DAILY AT THE SAME TIME EVERY DAY WITH A LARGER MEAL 2024 active Not Available Not Available Not Avai lable Jardiance 10 mg tablet Take 1 tablet by mouth once daily 2024 active Not Available Not Available Not Avai lable Vitals Date Recorded Body height Body mass index (BMI) Body weight Oxygen saturation Oxygen saturation in Arterial blood by Pulse oximetry Heart rate Body temperature Systolic And Diastolic Provider Name and Address Organization Details Last Updated DateTime 161.29 cm 49.5 kg/m2 345588. 23 g 97 % 97 % 90 /min 98.6 [degF] 132/72 mm[Hg] Kat Moran [facility] 16:26:53 Social History Question Answer Notes LastModified by Organizat ion Details LastModified Time Tobacco Smoking Status Never Smoker JUD LEON odalis [facility] 11/04/2023 13:38:13 What Was The Date Of Your Most Recent Tobacco Screening? 01/06/2025 [email or web address] Information not available 01/06/2025 Sex: Unknown Functional Status Question Answer Note LastModified by Organizat ion Details LastModified Time Do you use any illicit or recreational drugs? No [email or web address] Information not available 11/04/2023 Do you or have you ever used any other forms of tobacco or nicotine? No Information not available 11/04/2023 What is your level of alcohol consumption? None [email or web address] Information not available 11/04/2023 Do you or have you ever used any nicotine-free cigarettes, vape, or chewing tobacco? No [email or web address] Information not available 11/04/2023 Mental Status None recorded. Family History Relationship Description Onset Age of this Age Resolved Age Notes LastModified by Organization Details LastModified Time Father Hypertensive disorder [email or web address] Not available 11/03 13:38:27 Medical History No medical history recorded. Gynecological HistoryNo gynecological history recorded. Obstetrics History GPAL:G 0 P 0 0 0 0 Immunizations Vaccine Type Date Status Note Provider Nam e and Address Organization Details Recorded Time Influenza, split virus, trivalent, preservative 8 completed Sherrie jacobo [facility] 11/27/2022 09:54:35 Influenza, split virus, trivalent, preservative 7 completed Sherrie jacobo [facility] 11/27/2022 09:54:35 Influenza, split virus, trivalent, preservative 3 completed Sherrie jacobo [facility] 11/27/2022 09:54:35 Influenza, split virus, trivalent, preservative 5 [facility] 11/27/2022 09:54:35 Pneumococcal conjugate PCV 13 8 completed [facility] 11/27/2022 09:54:35 Influenza, split virus, trivalent, preservative 2 completed [facility] 11/27/2022 09:54:35 zoster live 8 completed [facility] 11/27/2022 09:54:35 Tdap 8 completed [facility] 11/27/2022 09:54:35 Influenza, high-dose, quadrivalent, PF 1 completed [facility] 11/27/2022 09:54:34 Influenza, high-dose, quadrivalent, PF 2 completed [facility] 11/27/2022 09:54:35 COVID-19, mRNA, LNP-S, PF, 100 mcg/0.5mL dose or 50 mcg/0.25mL dose 1 completed [facility] 11/27/2022 09:54:35 COVID-19, mRNA, LNP-S, PF, 100 mcg/0.5mL dose or 50 mcg/0.25mL dose 2 completed [facility] 11/27/2022 09:54:35 COVID-19, mRNA, LNP-S, PF, 100 mcg/0.5mL dose or 50 mcg/0.25mL dose 1 completed Sherrie Calixto [facility], [facility] 11/27/2022 09:54:35 Hep B, unspecified formulation 0 completed Sherriegiacomo Calixto null, [facility] 11/27/2022 09:54:35 Hep B, unspecified formulation 9 completed Sherrie Calixto null, [facility] 11/27/2022 09:54:35 Hep B, unspecified formulation 8 completed Sherrie Calixto [facility], [facility] 11/27/2022 09:54:35 COVID-19, mRNA, LNP-S, PF, 50 mcg/0.5 mL 3 completed [facility] 11/04/2023 13:19:24 Influenza, adjuvanted, quadrivalent, PF 3 completed Amanda Caldwell [facility] 11/21/2023 13:34:16 Pneumococcal conjugate PCV20, polysaccharide [id number] conjugate, adjuvant, PF 3 completed Sherrie Calixto [facility] 11/27/2022 12:19:18 zoster recombinant 3 completed Sherrie Calixto [facility], [facility] 11/27/2022 12:19:18 Influenza, high-dose, trivalent, PF 4 completed Not Available [facility] 08/26/2024 13:48:53 COVID-19, mRNA, LNP-S, PF, 50 mcg/0.5 mL 4 completed Not Available [facility] 08/26/2024 13:48:53 RSV, recombinant, protein subunit RSVpreF, adjuvant reconstituted, 0.5 mL, PF 4 completed Not Available [facility] 08/26/2024 13:48:53 Past Encounters Encounter ID Performer Location Encounter Start Date Encounter Closed Date Diagnosis/Indication Diagnosis SNOMED-CT Code Diagnosis ICD10 Code Diagnosis IMO Codes Diagnosis Note [id number] ADRIENNE VERA [facility] ([facility]) [address] [place] [address] 01/06/2025 16:17:37 01/06/2025 16:44:03 Chest pain 02106425 R07.89 10612 Active chest pain with shortness of breath. Patient will go ER for further evaluation and treatment. Wishes to go by POV. Taken out to car by wheelchair by Kat CURRY. Patient's cardiologi st Dr Miramontes called and given update. Report called to ER staff by Kat CURRY. Health Concerns Section Related Observation LastModified by Organization Detai ls LastModified Time None Recorded Concern Status LastModified by Organization Details LastModified Time None Recorded Payers Encounter Date Sequence Insurance Name Policy Number Policy Garcia Covered Member ID Garcia Member ID Guarantor Name 01/06/2025 1 MEDICARE [place]: [place] Archana L Beavers [id number] Archana L Beavers 01/06/2025 2 [employer] (MEDICARE SUPPLEMENT) Archana L Beavers [id number] Archana L Beavers Notes Date Note Type Note Provider Name and Address Organization Details Recorded Time 01/06/2025 text/html ROS as noted in the HPI walk inx5 days pain to left chest, today into back increased shortness of breath, hx a-fib. Patient complains of shortness of breath with minimal exertion. Chest pain is located in the left chest and radiates into the back. ADRIENNE VERA [address] [place], [address], [facility], L[facility]ero 01/06/2025 16:40:01 OBGyn Episode No OBEpisode recorded.
--- OUTSIDE RECORDS SUMMARY | 2025-01-06 15:52 | XMS_ITS ---
[facility] Address [address] [place] [address] Care Team Providers Care Systems Technician Name Role Phone Robert Perez MD Primary Care Provider [phone] Active Problems Problem Noted Date Diagnosed Date [...] syncope 09/16/2013 HBP (high blood pressure) 09/16/2013 Current Treatment and Therapy Plans No current plan information found. Past Treatment and Therapy Plans No past plan information found. Lifetime Dose Tracking * Chemical Lifetime Dose Automatic Entry Manual Entr y Effective Dose 245.7 mSv 245.7 mSv 0 mSv Total DLP 15,592.3 DLP 15,592.3 DLP 0 DLP CTDIvol Max 196.2 mGy 196.2 mGy 0 mGy CTDIvol Min 163.5 mGy 163.5 mGy 0 mGy Treatment Summaries History of endometrial cancer* Cancer Survivorship Care Plan Provided by [facility] on 11/08/20 General Information Patient Name: Archana Garcia Patient : 1945 General Information Patient Name: Archana Garcia Patient : 1945 Care Team Gynecologic Oncologist: Dr. Antonella Martínez DO Surgeon: Dr. Antonella Martínez DO Radiation Oncologist: Primary Care Physician: oRbert Perez MD Palliative Care Provider: No care meat service team member to display Nurse Navigator: No care meat service team member to display Advanced Practitioner: Nimo Kingsley APRN, LEGAL WRITING PROFESSOR-C Serena Bay APRN, LEGAL WRITING PROFESSOR-C Other Care Team Providers: Paulina Vieira, RN and Sunitha Martin, RN - Women's Oncology nursing staff Oncology History No loss of expression of MMR proteins FIGO Stage II Grade 2 Endometrial adenocarcinoma 03/28/2020 Surgery 1. Exam under anesthesia 2. Modified radical robotic hysterectomy 3. Robotic bilateral salpingo-oophorectomy 4. Robotic pelvic and periaortic (retroperitoneal) sentinel lymph node mapping and sampling 5. Cystoscopy 03/30/2020 Cancer Staged Staging form: Corpus Uteri - Carcinoma and Carcinosarcoma, AJCC 8th Edition - Pathologic stage from 03/30/2020: FIGO Stage II (pT2, pN0(sn), cM0) - Signed by Amanda Kaye MD on 03/30/2020 05/10/2020 - 06/16/2020 Radiation Completed external beam radiation therapy to the pelvis at [place]. Completed 2 fractions of vaginal brachytherapy Cancer Staging FIGO Stage II Grade 2 Endometrial adenocarcinoma Staging form: Corpus Uteri - Carcinoma and Carcinosarcoma, AJCC 8th Edition - Pathologic stage from 03/30/2020: FIGO Stage II (pT2, pN0(sn), cM0) - Signed by Amanda Kaye MD on 03/30/2020 Follow Up Care Recommendation 0-24 months 24-36 Months 3-5 Years After 5 Years History & Physical Visit High Risk Every 3 months Every 3 months Every 6 months Yearly* CA-125 With each follow up visit or as indicated With each follow up visit or as indicated With each follow up visit or as indicated With each follow up visit or as indicated Recurrence suspected CT or PET Scan CT or PET Scan CT or PET Scan CT or PET Scan * May be followed by a chief mechanical officer or gynecologic oncologist Low risk - early stage, treated with surgery alone, no adjuvant therapy High risk - advanced stage, treated with primary chemotherapy/ radiation therapy or surgery plus adjuvant therapy. Resources Provided to Patient Referrals Provided: There are no referrals needs at this time Survivorship Care Genetic counseling referral Tell your doctor if there is a family history of any of the following cancers: breast colon/Dee syndrome ovarian uterine Gynecologic Oncologist Non Cancer Related Preventive care Continue your routine visits to your primary care physician for preventative care. Bone health DEXA every 2 years calcium with vitamin D weight bearing exercise Lung Cancer Screening 55-77 years of age 30 pack per year or more smoking history Current Smoker or smoked within the last 15 years No signs and symptoms of lung cancer Smoked one pack of cigarettes per day for 30 years or two packs a day for 15 years In generally good health Colon cancer screening screening colonoscopy starting at age 45 or as discussed with PCP stool guaiac tests eat fruits and vegetables Heart Health weight management cholesterol management blood sugar control blood pressure control Breast Cancer Screening Mammograms as discussed with your PCP or Women's Oncology Call your doctor if you have any of these signs and symptoms: - Any vaginal bleeding is abnormal, please call office to have evaluated. - Changes in bowel or bladder function/pattern lasting greater than 10-14 days. - A sensation of a mass in the pelvic area. - Abdominal pain, bloating, or distention lasting greater than 10-14 days or not relieved by your pain medications. - Early satiety - Unintentional weight loss greater than 10 pounds over one months time. *Any new, unusual and/or persistent symptoms should be brought to the attention of your provider. Society of Gynecologic Oncology Recommendations Persistent Treatment-Associated Adverse Effects at Completion of Therapy: It is important to recognize that not every woman experiences the following adverse events after treatment. You may not have any of these issues, a few or many adverse effects. Experiences are highlyvariable. Please discuss any adverse effects of cancer treatment with your cancer care team. After SURGICAL THERAPY Menopausal symptoms: Hot flashes, night sweats and vaginal dryness may occur. See your health companion caregiver about non-medication recommendations and medication-based treatment. Hot Flashes Your Care Instructions A hot flash is a sudden feeling of intense body heat. Your head, neck, and chest may get red. Your heartbeat may speed up, and you may feel anxious or irritable. You may find that hot flashes occur more often in warm rooms or during stressful times. Hot flashes and other symptoms are a normal response to the hormone changes that occur as a result of hormonal changes in your body. Hot flashes often get better and go away with time. Making a few changes, such as exercising more, practicing meditation, quitting smoking, avoiding caffiene and drinking less alcohol, can help. Follow-up care is a varela part of your treatment and safety. Be sure to make and go to all appointments, and call your doctor if you are having problems. It???s also a good idea to know your test results and keep a list of the medicines you take. How can you care for yourself at home? If you decide to take medicine to treat hot flashes, take it exactly as prescribed. Call your doctor if you think you are having a problem with your medicine. You will get more details on the specific medicine your doctor prescribes. Learn to meditate. Sit quietly and focus on your breathing. Try to practice each day. Books, classes, and tapes can help you start a program. Wear natural fabrics, such as cotton and silk. Dress in layers so you can take off clothes as needed. Keep the room temperature cool or use a fan. You are more likely to have a hot flash when you are too warm than when you are cool. Use fewer blankets when you sleep at night. Drink cold fluids rather than hot ones. Limit your intake of caffeine and alcohol. Eat smaller meals more often during the day so your body makes less heat than when digesting large amounts of food. Eat low-fat and high-fiber foods. Do not smoke. Smoking can make hot flashes worse. If you need help quitting, talk to your doctor about stop-smoking programs and medicines. These can increase your chances of quitting for good. Get at least 30 minutes of exercise on most days of the week. Walking is a good choice. You also may want to do other activities, such as running, swimming, cycling, or playing tennis or team sports. When should you call for help? Watch closely for changes in your health, and be sure to contact your doctor if: Your hot flashes disrupt your activities or sleep. Your symptoms bother you, and they are not getting better. Leg swelling: Minimal to pronounced lower leg swelling can occur. Symptom control with compression hose, lymphedema massage or specialized physical therapy can be ordered. LYMPHEDEMA CONTROL 1. Put your affected leg above the level of your heart 2 or 3 times a day and keep it there for 45 minutes. Lie down to do this, and fully support your leg Place your leg up on pillows so that your foot is higher than your hip. Exercise your affected leg while it is supported above the level of your heart by flexing and pointing your toes 15 to 25 times. Repeat this 3 to 4 times a day. This helpsreduce swelling by pumping lymph fluid out of your leg through the undamaged lymph vessels. Wrapping your leg. Bandages wrapped around your entire limb encourage lymph fluid to flow back out of your affected limb and toward the trunk of your body. When bandaging your leg, start by making the bandage snuggest around your foot and toes. Wrap the bandage more loosely as you move up your leg.([facility] 2012) How to help prevent and control lymphedema At this time, there are no scientific studies to show that people can prevent lymphedema. Still, most experts say following these basic guidelines might lower your risk of lymphedema or delay its onset: Try to avoid infection. Your body responds to infection by sending extra fluid and white blood cells to fight the infection. If lymph nodes and vessels are missing or damaged, it is harder for the body to move this extra fluid, which can trigger lymphedema. Good hygiene and careful skin care may reduce the risk of lymphedema by helping you avoid infections. Follow these tips to help you care for the leg on the side of your body that had surgery: Keep your skin soft and moist by regularly using moisturizing lotion or cream. Push your cuticles back with a cuticle stick rather than cutting them with scissors. Keep your leg clean. Clean and protect any skin breaks caused by cuts, scratches, insect bites, hangnails, or torn cuticles. Wear socks and shoes when gardening or doing yard work. Use an insect repellent to avoid bug bites when outdoors. If you are stung by a bee on the affectedleg, clean and put ice on the area and raise the leg. Keep it clean, and call your doctor or nurse if the sting shows any signs of infection. Avoid extreme cold. As you warm up, it can cause rebound swelling and chapping of your skin, which may lead to infection. Try to avoid melendez and high heat. Like infections, melendez can cause extra fluid to build up and cause swelling when lymph nodes have been removed or damaged. Tips to avoid melendez include: Protect your leg from sunburn. Use sunscreen labeled SPF 15 or higher, and try to stay out of the sun between the hours of 10 a.m. and 4 p.m., when the ultraviolet rays are strongest. Avoid high heat, such as from hot tubs and saunas. Do not use a heating pad on the affected areas. Heat can increase fluid build-up. Try to avoid constriction. Constriction or squeezing of the leg may increase the pressure in nearby blood vessels. This may lead to increased fluid and swelling (much like water building up behind a dam). Lymphedema has also been linked with air travel, possibly because of air pressure changes. Tips include: Wear loose clothing, and socks. Avoid anything that forms a snug band around your leg. On long or frequent airplane flights, wear a compression stocking. Careful fitting is required, since any garment that is too tight near the top can actually reduce the lymph flow. Ask your doctor orphysical therapist if you should be fitted for a stocking to wear during air travel. Try to avoid gaining weight. Extra fat requires more blood vessels. This means more fluid in the legs and places a greater burden on the lymph vessels that are left. Some studies have found that gaining weight after surgery and/or radiation is linked to a higher risk of lymphedema. People who are more overweight (obese) are more likely to have severe lymphedema. [place] [employer], Jan, 2012, accessed at www.cancer.org. Sexual intimacy issues: Vaginal dryness and scarring at the top of the vagina causing discomfort can occur. Use of a lubricant and dilator can help prevent or improve vaginal symptoms. DYSPAREUNIA The medical term for painful intercourse is dyspareunia (uje-oux-RTV-nee-uh) -- which is defined aspersistent or recurrent genital pain that occurs just before, during or after intercourse. Painful sex can be caused by the radiation you received. Or maybe you have muscle spasms. In some cases, the pain is caused by another medical condition, such as a spinal problem. Some medicines can cause dryness in the vagina. And as a woman gets older, her vagina gets platen drier operator. It may also narrow, shorten, and get stiffer. This dryness can make sex painful. After radiation therapy to the perineal and pelvic area, you may experience vaginal dryness and vaginal tightness. Your oncology radiologist will give you dilators if this is indicated for the type of radiation you received. It is important to use your dilators regularly. Vaginal discharge is normal and for life. Light spotting can also be normal with intercourse and dilator use. Follow-up care is a varela part of your treatment and safety. Be sure to make and go to all appointments, and call your doctor if you are having problems. It's also a good idea to know your test resultsand keep a list of the medicines you take. How can you care for yourself at home? Use a vaginal lubricant during sex. Examples are Astroglide, K-Y Jelly, and Wet Gel Lubricant. Increase the time you and your partner spend touching each other before sex. This is called foreplay. Try different positions for sex to find the most comfortable ones. Ask your doctor about exercises to strengthen and relax your pelvic muscles. Before sex, take a warm bath. This can relax you and reduce anxiety. If your doctor prescribes any medicines, take them exactly as prescribed. Call your doctor if you think you are having a problem with your medicine. After RADIATION THERAPY Vaginal dryness and vaginal tightening: Use of a lubricant and dilator can help prevent or improve vaginal symptoms. Self Care Plan: What can You Do to Stay Healthy after Treatment for Uterine Cancer After Cancer Treatment in General: It is not uncommon for cancer to impact other areas of your lifesuch as relationships, work and mental health. If you develop financial concerns, resources are sometimes available to assist in these areas. Depression and anxiety can present either during or aftercancer diagnosis and treatment. It is important to discuss with your physician any of these concerns so these resources can be made available to you. Cancer treatments may increase your chance of developing other health problems years after you havecompleted treatment. The purpose of this self care plan is to inform you about what steps you can take to maintain good health after cancer treatment, including coping with side effects of treatment,reducing the risk of cancer returning, and watching for signs of cancer returning or of a new cancer. Keep in mind that every person treated for cancer is different and that these recommendations arenot intended to be a substitute for the advice of a doctor or other healthcare professional. Pleaseuse these recommendations to talk with your doctor and healthcare team about an appropriate follow up care plan for you. Society of Gynecologic Oncology. (2017). Survivorship Tool Kit. Retrieved from https://www.sgo.org/Clinical-Practice/Management/Survivorship-Toolkit/ Vaginal dryness Lubricants Cancer treatments often reduce the amount of lubricant produced in your vagina when you are excited. You may need extra lubrication to make intercourse comfortable. If you use a vaginal lubricant, choose a water-based gel that has no perfumes, coloring, spermicide, or flavors added, as these chemicals can irritate your delicate genital tissues. Lubricants can usually be found near the control or feminine hygiene products in drug stores or grocery stores. Common brands include K-Y Jelly?? and Astroglide??. Be aware that some of the newer lubricant products include herbal extracts (such as aloe or lavender), which may cause irritation or allergic reactions in some people. Also, warming g els can cause burning in some people. Be sure to read the labels, and talk with a nurse, doctor, orpharmacist if you have questions. Petroleum jelly (Vaseline??), skin lotions, and other oil-based lubricants are not good choices forvaginal lubrication. In some women, they may raise the risk of yeast infection. And if latex condoms are used, they can be damaged by petroleum products and lotions. Also, watch out for condoms or gels that contain nonoxynol-9 (N-9). N-9 is a control agent that kills sperm, but it can irritate the vagina, especially if the tissues are already dry or fragile. Before intercourse, put some lubricant around and inside the entrance of your vagina. Then spread some of it on your partner???s penis, fingers, or other insert. This helps get the lubricant inside your vagina. Many couples treat this as a part of foreplay. If vaginal penetration lasts more than a few minutes, you may need to stop briefly and use more lubricant. Even if you use vaginal moisturizers every few days, it???s best to use gel lubricant before and during sex. Vaginal moisturizers As women age, the vagina can naturally lose moisture and elasticity (the ability to stretch or movecomfortably). Cancer treatments and risk-reducing surgery (such as removing the ovaries) can hastenthese changes. Vaginal moisturizers are non-hormonal products intended to be used several times a week to improve overall vaginal health and comfort. You can buy them without a prescription. Vaginal health is not only important for sexual activity, but also for comfortable gynecologic exams. Vaginal moisturizers are designed to help keep your vagina moist and at a more normal acid balance (pH) for up to 2 to 3 days. Vaginal moisturizers are applied at bedtime for the best absorption. It should be noted that it???s not uncommon for women who???ve had cancer to need to use moisturizers up to 3 to 5 times per week. Vaginal moisturizers are different than lubricants - they last longer and are not usually used for sexual activity. Replens?? and K-Y Liquibeads?? are examples of vaginal moisturizers. Lubrin?? and Astroglide SilkenSecret?? are other moisturizers that are marketed as longer lasting than typical lubricants. Vitamin E gel caps can also be used as a vaginal moisturizer. Use a clean needle to make a small hole in the gel cap and either put the entire capsule into your vagina or squeeze some of the gel onto your fingers and put them into your vagina. Be aware that vitamin E may stain undergarments. [place] [employer] Guidelines on Nutrition and Physical Activity For Cancer Prevention 1. Achieve and maintain a healthy weight. Avoid weight gain during cancer treatment, whether you are at a healthy weight or overweight. Weight loss after recovery from treatment may benefit survivors who are overweight or obese. 2. Be physically active. Studies show that exercise is safe during cancer treatment, and can improve many aspects of health,including muscle strength, balance, fatigue, and depression. Physical activity after diagnosis is linked to living longer and a reduced risk of the cancer returning among people living with cancer, including breast, colorectal, prostate, and ovarian cancer. Aim for 30 min of exercise 5 days a week. 3. Eat a healthy diet, with an emphasis on fruits, vegetables, and whole grains. The most health benefits are associated with a diet high in fruits, vegetables, whole grains, poultry, and fish, and low in refined grains, red meat and processed meat (such as hot dogs), desserts, high-fat dairy products and Nigerian fries. Most of the studies about cancer and diet have focused on breast cancer. Studies show that taking vitamins, herbs and other nutritional supplements often does not help cancer patients live longer, and may even shorten life. Before taking any supplement, discuss it with your health care provider. 4. Don't smoke 5. If you drink alcohol, limit your intake. Drink no more than 1 drink per day for women or 2 per day for men. 6. Sunscreen use Exposure to ultraviolet rays is the leading cause of skin cancer. It is important to protect your skin. Sun damage builds up over time. It is important to use sunscreen every day. You should use a sunscreen that is water resistant and has an SPF of 30 or above. Remember to also protect your lips and eyes. 7. Routine blood pressure, cholesterol, and glucose monitoring. While many cancer survivors worry about their cancer coming back most cancer survivors are more likely to develop other chronic medical conditions such as high blood pressure, heart disease, and diabetes. Be sure to start and/or continue to see your primary care physician regularly. 8. Vaccines The flu is a respiratory infection caused by viruses. While most people with the flu get better on their own it can be serious. It can cause many medical complications and sometimes even . Be sure to get an annual influenza vaccine (flu shot). Pneumococcal diseases can cause serious infections in the lungs and bloodstream. A pneumococcal vaccine is recommended for all adults 65 years of age and older. It is also recommended for some younger adults who have chronic health conditions. Be sure and check with your doctor if you need a pneumococcal vaccine. 9. Routine Dental Care Your oral health may be more important than you think. It can contribute to various medical diseases and conditions. Daily oral hygiene helps decrease our risk of tooth decay and gum disease. Be sureto brush twice a day, floss daily, and see your dentist regularly for checkups and cleanings. 10. Eye Health Our eyes are called the windows to the world. Make sure you take good care of your eyes. Adults should have their eyes examined every 2 years until age 60. We should then undergo eye exams yearly. Individuals with contact lenses, glasses, or who are at high risk for eye problems (i.e. diabetes, family history of eye disease) should be seen more frequently. Additional Resources: Patients may have many varied questions and concerns after their cancer treatment ends. A list of local resources is provided below to assist you. [facility] Cancer Resource Program [address] [place] [address] www.Taam[employer] [facility] [address] [place] [address] [employer] [address] [place] [address] [address] [place] [address] CancerCare website: www.cancercare.org National Cancer [place] Breast Cancer Foundation [address] [address] [place] [address] www.bcfo.org MARKETING SUPPORT SPECIALIST Cancer [place] (GYNCA) [address] [place] [address] www.gynca.org National Resources-Cancer Cancer Education Academy of Oncology Nurse & Patient Navigators: www.aonnonline.org Garos Lemdemetri Stand Foundation for Childhood Cancer: www.alexsleeast [facility] regional medical centerade.org [employer] Cancer Society: www.cancer.org [place] Society of Clinical Oncology: www.cancer.net Association of Community Cancer Centers: www.acc-cancer.org PPKDFD112: www..org CancerCare: www.cancercare.org CancerGuide: www.cancerguide.org CancerQuest: www.cancerquest.org Centers for Disease Control and Prevention (CDC): www.cdc.gov [place]: www.touchedbycancer.org Get Palliative Care: www.getpalliativecare.org Global Resource for Advancing Cancer Education (CARMEN): www.cancergrace.org The Hope Light Foundation: www.Wellcentive.Paperlit LIVESTRONG Foundation: www.livestrong.org National Cancer Marked [place]: www.cancer.gov National Comprehensive Cancer Network (NCCN): www.nccn.org National LGBT Cancer Network: http://cancer-network.org OncoLink: www.oncolink.org Oncology Nursing Society: www.ons.org Patient Power: www.patientpower.info [facility] Cancer Support: www.pearlpoint.org [employer] Foundation: www.[employer] [facility] [employer]foundation.org [facility]: www.blochcancer.org [facility]: www.[facility].org Triage Cancer: www.triagecancer.org U.S. National Library of Medicine: www.nlm.nih.gov Financial Assistance [employer]: www.cancer.org [employer] Kidney [employer]: www.kidneyfund.org BenefitsCheckUp: www.benefitscheckup.org Bringing Hope [place]: www.[facility].org CancerCare: www.cancercare.org/financial Cancer Financial Assistance Coalition: www.cancerfac.org [employer]: www.[employer] Foundation: www.[employer].org Hope Vidal: www.cancer.org/treatment/supportprogramsservices/hopelodge LIVESTRONG Foundation: www.livestrong.org Medicare.gov: www.medicare.gov NeedyMeds: www.needymeds.[employer]lit Partnership for Prescription Assistance: www.pparx.org Patient Access Network Foundation: www.panfoundation.org Patient Advocate Foundation: www.patientadvocate.org Patient Services, Inc.: www.patientservicesinc.org [employer] Foundation: www.pinsforpauly.org RxAssist: www.rxassist.org RxHope: www.rxhope.Paperlit Social Security Administration: www.ssa.gov Social Security Disability Resource Center: www.ssd.Paperlit State Health Insurance Assistance Programs: www.shiptacenter.org Stupid Cancer: www.stupidcancer.org Important caution: this is a summary document whose purpose is to review the highlights of the cancer treatment for this patient. This does not replace information available in the medical record, a complete medical history provided by the patient, examination and diagnostic information, or educational materials that describe strategies for coping with cancer and cancer therapies in detail. Both medical science and an individual???s health care needs change, and therefore this document is current only as of the date of preparation. This summary document does not prescribe or recommend any particular medical treatment or care for cancer or any other disease and does not substitute for the independent medical judgment of the treating professional.
--- OUTSIDE RECORDS SUMMARY | 2025-01-06 15:52 | XMS_ITS | Data Portability ---
Author Organization EMORY Beka Lynn [facility] Diana Hernadez [facility] Address [address] [address] Assessment Encounter Date Assessment Date Assessment LastModified by Organization Details LastModified Time 05/06/2024 05/06/2024 to er if fever vomiting feelign worse or increasing flank pain [email or web address] Not available 05/06/2024 10:02:06 08/26/2024 08/26/2024 most likely gastroenteritis hold furosemide [email or web address] Not available 08/26/2024 15:36:46 Plan of Treatment Reminders Order Date Submit Date Provider Last Modified By Organization Details Last Modified Time Details Appointments None recorded. Lab urinalysis, complete 2024 025 [email or web address] [facility], [address], [facility] 1, [place], [address], 15:53:32 culture, urine 2024 025 [email or web address] [facility], [address] [place] [address] 248, [address] [place], [address], 09:21:54 TSH, serum or plasma 2024 025 [email or web address] [facility], [address] [facility] [address], [facility] 1, [place], [address], 5 08:01:50 CBC 2024 025 [facility], [address], [facility] 1, [place], [address], 5 16:09:21 CMP, serum or plasma 2024 025 [facility], [address] [facility], [facility], [place], [address], 5 16:57:53 T4, free, serum 2024 025 [employer] [facility], [address] [place] [address], [address], [place], [address], 5 09:21:53 urinalysis, complete [address] Lab, 805 [facility], [facility] 1, [place], [address], 5 12:01:56 culture, urine 2024 025 [employer] [facility], [address] [place] [address], [address], [place], [address], 5 00:53:16 BMP, serum or plasma 2023 024 [facility], 805 [facility], [facility] 1, [place], [address], 5 05:01:24 Referral None recorded. Procedures None recorded. Surgeries None recorded. Imaging electrocard iogram 2023 024 [facility] ([facility]), [address] [place], [address], 4 08:54:51 XR, chest, 2 view 2023 024 [facility] ([facility]), [address] [place], [address], 4 15:32:57 Medication Orders ondansetron HCl 4 mg tablet 2024 025 [facility], [address], [place], [address], 5 15:45:58 cefdinir 300 mg capsule 2024 025 [facility], [address], [place], [address], 5 05:01:28 Bactrim DS 800 mg-160 mg tablet 2024 025 [facility], [address], [place], [address], 5 14:42:16 ceftriaxone 1 gram solution for injection 2024 025 [email or web address] Not available 5 14:40:54 Jardiance 10 mg tablet 2023 024 [id number], [address], [facility] 2, [place], [address], 4 14:07:09 Klor-Con M20 mEq tablet,exte nded release [address]23 [email or web address] [id number], [address] [facility] [address], [facility] 2, [place], [address], 4 14:12:20 Jardiance 10 mg tablet 2023 024 [id number], [address] [facility] [address], [facility] 2, [place], [address], 4 13:55:15 Patient TargetsNo targets recorded. Patient InstructionsNo instructions recorded. Reason for Referral None Reported. Results Created Date Observation Date Name Description Value Unit Range Abnormal Flag Note LastModifiedBy Organization Detail LastModifiedTime 05/06/19 25 05/06/2024 URINA LYSIS WITH MICRO color YELLOW Not Available [facility] [address], [place], [address], 05/06/2024 09:38:38 05/06/19 25 05/06/2024 URINA LYSIS WITH MICRO clarity CLEAR Not Available [facility] [address], [place], [address], 05/06/2024 09:38:38 05/06/19 25 05/06/2024 URINA LYSIS WITH MICRO glu 2+ abnormal Not Available [facility] [address], [place], [address], 05/06/2024 09:38:38 05/06/19 25 05/06/2024 URINA LYSIS WITH MICRO bili NEGATI VE Not Available [facility] [address], [place], [address], 05/06/2024 09:38:38 05/06/19 25 05/06/2024 URINA LYSIS WITH MICRO ket NEGATI VE Not Available [facility] [address], [place], [address], 05/06/2024 09:38:38 05/06/19 25 05/06/2024 URINA LYSIS WITH MICRO S.g 1.025 1.005- 1.025 Not Available [facility] [address], [place], [address], 05/06/2024 09:38:38 05/06/19 25 05/06/2024 URINA LYSIS WITH MICRO pH 5.0 5.0-7. 0 Not Available [facility] [address], [place], [address], 05/06/2024 09:38:38 05/06/19 25 05/06/2024 URINA LYSIS WITH MICRO pro NEGATI VE Not Available [facility] [address] [facility], [place], [address], 05/06/2024 09:38:38 05/06/19 25 05/06/2024 URINA LYSIS WITH MICRO uro 0.2 E.U./D L Not Available [facility] [address] [facility], [place], [address], 05/06/2024 09:38:38 05/06/19 25 05/06/2024 URINA LYSIS WITH MICRO nit NEGATI VE Not Available [facility] [address] [facility], [place], [address], 05/06/2024 09:38:38 05/06/19 25 05/06/2024 URINA LYSIS WITH MICRO blo NEGATI VE Not Available [facility] [address] [facility], [place], [address], 05/06/2024 09:38:38 05/06/19 25 05/06/2024 URINA LYSIS WITH MICRO kin 1+ abnormal Not Available [facility] [address] [facility], [place], [address], 05/06/2024 09:38:38 05/06/1905/06/2024 URINA LYSIS WITH MICRO WBC 12-15 abnormal Not Available [facility] [address] [facility], [place], [address], 05/06/2024 09:38:38 05/06/1905/06/2024 URINA LYSIS WITH MICRO RBC 2-3 Not Available [facility] [address] [facility], [place], [address], 05/06/2024 09:38:38 05/06/19 25 05/06/2024 URINA LYSIS WITH MICRO epi cells 35-40 abnormal Not Available [facility] [address] [facility] 1, [place], [address], 05/06/2024 09:38:38 05/06/19 25 05/06/2024 URINA LYSIS WITH MICRO bacteria TRACE OF MIXED ABRIL abnormal Not Available [facility] [address] [facility] [address] [facility] 1, [place], [address], 05/06/2024 09:38:38 05/06/19 25 05/06/2024 URINA LYSIS WITH MICRO other NG Not Available [facility] [address] [facility] 1, [place], [address], 05/06/2024 09:38:38 10/27/19 24 10/27/2023 CBC WBC 6.4 x10 4.0-10 .5 Not Available [facility] [address] [facility] 1, [place], [address], 10/28/2023 09:04:32 10/27/19 24 10/27/2023 CBC RBC 3.85 x10 3.50-5 .50 Not Available [facility] [address] [facility] 1, [place], [address], 10/28/2023 09:04:32 10/27/19 24 10/27/2023 CBC HGB 12.6 g/dL 12.0-1 6.0 Not Available [facility] [address] [facility] 1, [place], [address], 10/28/2023 09:04:32 10/27/19 24 10/27/2023 CBC HCT 36.0 % 37.0-4 7.0 low Not Available [facility] [address] [facility] 1, [place], [address], 10/28/2023 09:04:32 10/27/19 24 10/27/2023 CBC MCV 93.6 fL 80.0-9 9.9 Not Available [facility] [address] [facility] 1, [place], [address], 10/28/2023 09:04:32 10/27/19 24 10/27/2023 CBC MCH 32.6 pg 27.0-3 2.0 high Not Available [facility] [address] [facility] 1, [place], [address], 10/28/2023 09:04:32 10/27/19 24 10/27/2023 CBC MCHC 34.9 g/dL 32.0-3 6.0 Not Available [facility] [address] [facility] 1, [place], [address], 10/28/2023 09:04:32 10/27/19 24 10/27/2023 CBC RDW 13.4 % 11.5-1 4.5 Not Available [facility] [address] [facility] [facility] 1, [place], [address], 10/28/2023 09:04:32 10/27/19 24 10/27/2023 CBC plt 209.9 x10 140.0- 451.0 Not Available [facility] [address] [facility] 1, [place], [address], 10/28/2023 09:04:32 10/27/19 24 10/27/2023 CBC lymphocytes % 15.6 % 20.0-5 0.0 low Not Available [facility] [address] [facility] 1, [place], [address], 10/28/2023 09:04:32 10/27/19 24 10/27/2023 CBC granulcytes % 77.5 % 30.0-7 0.0 high Not Available [facility] [address] [facility] 1, [place], [address], 10/28/2023 09:04:32 07/22/20 24 10/27/2023 CBC monocytes % 5.6 % 2.0-16 .0 Not Available [facility] [address] [facility] [facility], [place], [address], 10/28/2023 09:04:32 10/27/19 24 10/27/2023 CBC granulcytes# 5.0 x10 Not Rafaela ilable [facility] [address] [address], [place], [address], 10/28/2023 09:04:32 10/27/19 24 10/27/2023 CBC lymphocytes # 1.0 x10 Not Available [facility] [address] [address], [place], [address], 10/28/2023 09:04:32 10/27/19 24 10/27/2023 CBC monocytes # 0.4 x10 Not Avai lable [facility] [address] [address], [place], [address], 10/28/2023 09:04:32 10/27/19 24 10/27/2023 CMP (FEMA LE) glucose 106.0 mg/dL 60.0-9 9.0 high Not Available [facility] [address] [address], [place], [address], 10/28/2023 09:05:18 10/27/19 24 10/27/2023 CMP (FEMA LE) BUN (blood urea nitrogen) 34.0 mg/dL 10.0-2 6.0 high Not Available [facility] [address] [facility] [address] [address], [place], [address], 10/28/2023 09:05:18 10/27/19 24 10/27/2023 CMP (FEMA LE) creatinine (serum) 1.6 mg/dL 0.4-1. 5 high Not Available [facility] [address], [place], [address], 10/28/2023 09:05:18 10/27/19 24 10/27/2023 CMP (FEMA LE) BUN/creatini ne ratio 21.38 ratio Not Available [facility] [address], [place], [address], 10/28/2023 09:05:18 10/27/19 24 10/27/2023 CMP (FEMA LE) eGFR calculated 33.[address] [facility] [address] [facility] [facility] 1, [place], [address], 10/28/2023 09:05:18 10/27/19 24 10/27/2023 CMP (FEMA LE) total protein 7.3 g/dL 6.0-8. 5 Not Available [facility] [address] [facility] 1, [place], [address], 10/28/2023 09:05:18 10/27/19 24 10/27/2023 CMP (FEMA LE) total bilirubin 0.8 mg/dL 0.2-1. 3 Not Available [facility] [address] [facility] 1, [place], [address], 10/28/2023 09:05:18 10/27/19 24 10/27/2023 CMP (FEMA LE) albumin 4.1 g/dL 3.5-5. 5 Not Available [facility] [address] [facility] 1, [place], [address], 10/28/2023 09:05:18 10/27/19 24 10/27/2023 CMP (FEMA LE) globulin 3.2 calc Not Available [facility] [address] [facility] 1, [place], [address], 10/28/2023 09:05:18 10/27/19 24 10/27/2023 CMP (FEMA LE) AST (SGOT) 26.0 U/L 0.0-46 .0 Not Available [facility] [address] [facility], [place], [address], 10/28/2023 09:05:18 10/27/19 24 10/27/2023 CMP (FEMA LE) altv (SGPT) 16.0 U/L 13.0-6 9.0 normal Not Available [facility] [address] [facility], [place], [address], 10/28/2023 09:05:18 10/27/19 24 10/27/2023 CMP (FEMA LE) A/G ratio 1.3 ratio Not Available [facility] [address] [address], [place], [address], 10/28/2023 09:05:18 10/27/19 24 10/27/2023 CMP (FEMA LE) ALP phos 70.0 U/L 30.0-1 40.0 normal Not Available [facility] [address] [facility], [place], [address], 10/28/2023 09:05:18 10/27/19 24 10/27/2023 CMP (FEMA LE) calcium 9.6 mg/dL 8.4-10 .5 Not Available [facility] [address] [address], [place], [address], 10/28/2023 09:05:18 10/27/19 24 10/27/2023 CMP (FEMA LE) sodium 140.0 mmol/ L 136.0- 145.0 Not Available [facility] [address] [address], [place], [address], 10/28/2023 09:05:18 10/27/19 24 10/27/2023 CMP (FEMA LE) potassium 4.2 mmol/ L 3.5-5. 1 Not Available [facility] [address] [facility], [place], [address], 10/28/2023 09:05:18 10/27/19 24 10/27/2023 CMP (FEMA LE) chloride 106.0 mmol/ L 98.0-1 10.0 normal Not Available [facility] [address] [facility] 1, [place], [address], 10/28/2023 09:05:18 10/27/19 24 10/27/2023 CMP (FEMA LE) C02 28.0 mmol/ L 22.0-3 1.0 Not Available [facility] [address] [facility], [place], [address], 10/28/2023 09:05:18 10/27/19 24 10/27/2023 CMP (FEMA LE) anion gap 6.0 calc Not Available [facility] [address] [facility], [place], [address], 10/28/2023 09:05:18 10/27/19 24 10/27/2023 CMP (FEMA LE) osmolality 296.6 calc Not Available [facility] [address] [address], [place], [address], 10/28/2023 09:05:18 10/27/19 24 10/28/2023 T4, FREE T4, free 1.1 NG/dL 0.8-1. 8 normal Not Available [facility] [address] [place], [address], 10/28/2023 14:14:14 10/27/19 24 10/28/2023 B TYPE NATRI URETI C PEPTI DE (BNP) B type natriuretic peptide (BNP) 125 pg/mL <100 high BNP level s incre ase with age in the gener al popul ation with the highe st value s seen in indiv idual s great er than 75 years of age. Refer ence: J. Am. Lore. Cardi ol. 2002; 40:97 6-982 . Not Available [employer] [facility] [address] [place], [address], 10/28/2023 14:14:15 10/27/19 24 10/27/2023 urina lysis , compl ete color yellow Not Available [facility]) [address] [place], [address], 10/27/2023 11:44:01 10/27/19 24 10/27/2023 urina lysis , compl ete clarity clear clear normal Not Available [facility] ([facility]) [address] [place], [address], 10/27/2023 11:44:01 10/27/19 24 10/27/2023 urina lysis , compl ete glucose negati ve negati ve normal Not Available [facility] ([facility]) [address] [place], [address], 10/27/2023 11:44:01 10/27/19 24 10/27/2023 urina lysis , compl ete bilirubin negati ve negati ve normal Not Available [facility] ([facility]) [address] [place], [address], 10/27/2023 11:44:01 10/27/19 24 10/27/2023 urina lysis , compl ete ketones negati ve negati ve normal Not Available [facility] ([facility]) [address] [place], [address], 10/27/2023 11:44:01 10/27/19 24 10/27/2023 urina lysis , compl ete specific gravity 1.015 1.005- 1.025 normal Not Available [facility] ([facility]) [address] [place], [address], 10/27/2023 11:44:01 10/27/19 24 10/27/2023 urina lysis , compl ete pH 5.5 5.0-7. 0 normal Not Available [facility] ([facility]) [address] [place], [address], 10/27/2023 11:44:01 10/27/19 24 10/27/2023 urina lysis , compl ete protein negati ve Not Available [facility] ([facility]) [address] [place], [address], 10/27/2023 11:44:01 10/27/19 24 10/27/2023 urina lysis , compl ete uro 0.2 Not Available [facility] ([facility]) [address] [place], [address], 10/27/2023 11:44:01 10/27/19 24 10/27/2023 urina lysis , compl ete nitrate negati ve negati ve normal Not Available [facility] ([facility]) [address] [place], [address], 10/27/2023 11:44:01 10/27/19 24 10/27/2023 urina lysis , compl ete blood negati ve negati ve normal Not Available [facility] ([facility]) [address] [place], [address], 10/27/2023 11:44:01 10/27/19 24 10/27/2023 urina lysis , compl ete leukocytes negati ve negati ve normal Not Available [facility] ([facility]) [address] [place], [address], 10/27/2023 11:44:01 10/27/19 24 10/27/2023 urina lysis , compl ete WBC 0-1 0 low Not Available [facility] ([facility]) [address] [place], [address], 10/27/2023 11:44:01 10/27/19 24 10/27/2023 urina lysis , compl ete RBC - 0 Not Available [facility] ([facility]) [address] [place], [address], 10/27/2023 11:44:01 10/27/19 24 10/27/2023 urina lysis , compl ete epi cells 1-3 0 low Not Available [facility] ([facility]) [address] [place], [address], 10/27/2023 11:44:01 10/27/19 24 10/27/2023 urina lysis , compl ete bacteria - Not Available [facility] ([facility]) [address] [place], [address], 10/27/2023 11:44:01 10/27/19 24 10/27/2023 urina lysis , compl ete other - Not Available [facility] ([facility]) [address] [place], [address], 10/27/2023 11:44:01 10/27/19 24 10/27/2023 TSH, serum or plasm a TSH 0.99 uIU/m L 0.49-3 .82 Not Available [facility] ([facility]) [address] [place], [address], 10/27/2023 11:37:05 05/06/19 25 05/07/2024 CULTU RE, URINE , ROUTI NE culture, urine, routine SEE NOTE CULTU RE, URINE , ROUTI NE Micro Numbe r: [id number] Test Statu s: Final Speci men Sourc e: Urine , clean catch Speci men Quali ty: Adequ ate Resul t: No Growt h Not Available [facility] [address], [place], [address], 05/08/2024 00:53:16 08/27/1908/26/2024 URINA LYSIS WITH MICRO color YELLOW Not Available [facility] [address], [place], [address], 08/26/2024 15:14:12 08/27/19 25 08/26/2024 URINA LYSIS WITH MICRO clarity CLEAR Not Available [facility] [address], [place], [address], 08/26/2024 15:14:12 08/27/19 25 08/26/2024 URINA LYSIS WITH MICRO glu 2+ abnormal Not Available [facility] [address], [place], [address], 08/26/2024 15:14:12 08/27/19 25 08/26/2024 URINA LYSIS WITH MICRO bili NEGATI VE Not Available [facility] [address], [place], [address], 08/26/2024 15:14:12 08/27/19 25 08/26/2024 URINA LYSIS WITH MICRO ket NEGATI VE Not Available [facility] [address], [place], [address], 08/26/2024 15:14:12 08/27/19 25 08/26/2024 URINA LYSIS WITH MICRO S.g 1.015 1.005- 1.025 Not Available [facility] [address], [place], [address], 08/26/2024 15:14:12 08/27/19 25 08/26/2024 URINA LYSIS WITH MICRO pH 5.5 5.0-7. 0 Not Available [facility] [address], [place], [address], 08/26/2024 15:14:12 08/27/19 25 08/26/2024 URINA LYSIS WITH MICRO pro NEGATI VE Not Available [facility] [address], [place], [address], 08/26/2024 15:14:12 08/27/19 25 08/26/2024 URINA LYSIS WITH MICRO uro 0.2 E.U./D L Not Available [facility] [address], [place], [address], 08/26/2024 15:14:12 08/27/19 25 08/26/2024 URINA LYSIS WITH MICRO nit NEGATI VE Not Available [facility] [address], [place], [address], 08/26/2024 15:14:12 08/27/19 25 08/26/2024 URINA LYSIS WITH MICRO blo NEGATI VE Not Available [facility] [address], [place], [address], 08/26/2024 15:14:12 08/27/19 25 08/26/2024 URINA LYSIS WITH MICRO kin NEGATI VE Not Available [facility] [address], [place], [address], 08/26/2024 15:14:12 08/27/19 25 08/26/2024 URINA LYSIS WITH MICRO WBC 1-2 Not Available [facility] [address], [place], [address], 08/26/2024 15:14:12 08/27/19 25 08/26/2024 URINA LYSIS WITH MICRO RBC NEGATI VE Not Available [facility] [address], [place], [address], 08/26/2024 15:14:12 08/27/19 25 08/26/2024 URINA LYSIS WITH MICRO epi cells 12-15 abnormal Not Available [facility] [address] [facility] 1, [place], [address], 08/26/2024 15:14:12 08/27/19 25 08/26/2024 URINA LYSIS WITH MICRO bacteria TRACE OF MIXED ABRIL abnormal Not Available [facility] [address] [facility] 1, [place], [address], 08/26/2024 15:14:12 08/27/19 25 08/26/2024 URINA LYSIS WITH MICRO other NG Not Available [facility] [address] [facility], [place], [address], 08/26/2024 15:14:12 08/27/19 25 08/26/2024 CBC WBC 9.0 x10 4.0-10 .5 Not Available [facility] [address] [facility], [place], [address], 08/26/2024 16:09:20 08/27/19 25 08/26/2024 CBC RBC 4.45 x10 3.50-5 .50 Not Available [facility] [address] [facility], [place], [address], 08/26/2024 16:09:20 08/27/19 25 08/26/2024 CBC HGB 14.5 g/dL 12.0-1 6.0 Not Available [facility] [address] [facility], [place], [address], 08/26/2024 16:09:20 08/27/19 25 08/26/2024 CBC HCT 43.9 % 37.0-4 7.0 Not Available [facility] [address] [facility] 1, [place], [address], 08/26/2024 16:09:20 08/27/19 25 08/26/2024 CBC MCV 98.7 fL 80.0-9 9.9 Not Available [facility] [address] [facility] 1, [place], [address], 08/26/2024 16:09:20 08/27/19 25 08/26/2024 CBC MCH 32.5 pg 27.0-3 2.0 high Not Available [facility] [address] [facility] 1, [place], [address], 08/26/2024 16:09:20 08/27/19 25 08/26/2024 CBC MCHC 33.0 g/dL 32.0-3 6.0 Not Available [facility] [address] [facility], [place], [address], 08/26/2024 16:09:20 08/27/19 25 08/26/2024 CBC RDW 13.1 % 11.5-1 4.5 Not Available [facility] [address] [facility] 1, [place], [address], 08/26/2024 16:09:20 08/27/19 25 08/26/2024 CBC plt 269.2 x10 140.0- 451.0 Not Available [facility] [address] [facility] 1, [place], [address], 08/26/2024 16:09:20 08/27/19 25 08/26/2024 CBC lymphocytes % 15.6 % 20.0-5 0.0 low Not Available [facility] [address] [facility] Suz[address] [facility] 1, [place], [address], 08/26/2024 16:09:20 08/27/19 25 08/26/2024 CBC granulcytes % 76.8 % 30.0-7 0.0 high Not Available [facility] [address] [facility] 1, [place], [address], 08/26/2024 16:09:20 08/27/19 25 08/26/2024 CBC monocytes % 6.3 % 2.0-16 .0 Not Available [facility] [address] [address], [place], [address], 08/26/2024 16:09:20 08/27/19 25 08/26/2024 CBC granulcytes# 6.9 x10 Not Rafaela ilable [facility] [address] [address], [place], [address], 08/26/2024 16:09:20 08/27/19 25 08/26/2024 CBC lymphocytes # 1.4 x10 Not Available [facility] [address] [address], [place], [address], 08/26/2024 16:09:20 08/27/19 25 08/26/2024 CBC monocytes # 0.6 x10 Not Avai lable [facility] [address] [address], [place], [address], 08/26/2024 16:09:20 08/27/19 25 08/26/2024 CMP (FEMA LE) glucose 110.0 mg/dL 60.0-9 9.0 high Not Available [facility] [address] [address], [place], [address], 08/26/2024 16:57:53 08/27/19 25 08/26/2024 CMP (FEMA LE) BUN (blood urea nitrogen) 28.0 mg/dL 10.0-2 6.0 high Not Available [facility] [address] [facility] [address] [address], [place], [address], 08/26/2024 16:57:53 08/27/19 25 08/26/2024 CMP (FEMA LE) creatinine (serum) 1.4 mg/dL 0.4-1. 5 Not Available [facility] [address] [facility] [address], [place], [address], 08/26/2024 16:57:53 08/27/19 25 08/26/2024 CMP (FEMA LE) BUN/creatini ne ratio 20.00 ratio Not Available [facility] [address] [facility] [address], [place], [address], 08/26/2024 16:57:53 08/27/19 25 08/26/2024 CMP (FEMA LE) eGFR calculated 38.[address] [facility] [address] [address], [place], [address], 08/26/2024 16:57:53 08/27/19 25 08/26/2024 CMP (FEMA LE) total protein 7.7 g/dL 6.0-8. 5 Not Available [facility] [address] [address], [place], [address], 08/26/2024 16:57:53 08/27/19 25 08/26/2024 CMP (FEMA LE) total bilirubin 1.0 mg/dL 0.2-1. 3 Not Available [facility] [address] [address], [place], [address], 08/26/2024 16:57:53 08/27/19 25 08/26/2024 CMP (FEMA LE) albumin 4.2 g/dL 3.5-5. 5 Not Available [facility] [address] [address], [place], [address], 08/26/2024 16:57:53 08/27/19 25 08/26/2024 CMP (FEMA LE) globulin 3.5 calc Not Available [facility] [address] [address], [place], [address], 08/26/2024 16:57:53 08/27/19 25 08/26/2024 CMP (FEMA LE) AST (SGOT) 19.0 U/L 0.0-46 .0 Not Available [facility] [address] [facility], [place], [address], 08/26/2024 16:57:53 08/27/19 25 08/26/2024 CMP (FEMA LE) altv (SGPT) 19.0 U/L 13.0-6 9.0 normal Not Available [facility] [address] [facility] [address], [place], [address], 08/26/2024 16:57:53 08/27/19 25 08/26/2024 CMP (FEMA LE) A/G ratio 1.2 ratio Not Available [facility] [address] [address], [place], [address], 08/26/2024 16:57:53 08/27/19 25 08/26/2024 CMP (FEMA LE) ALP phos 75.0 U/L 30.0-1 40.0 normal Not Available [facility] [address] [facility] [address], [place], [address], 08/26/2024 16:57:53 08/27/19 25 08/26/2024 CMP (FEMA LE) calcium 9.8 mg/dL 8.4-10 .5 Not Available [facility] [address] [facility] [address], [place], [address], 08/26/2024 16:57:53 08/27/19 25 08/26/2024 CMP (FEMA LE) sodium 139.0 mmol/ L 136.0- 145.0 Not Available [facility] [address] [facility] [address], [place], [address], 08/26/2024 16:57:53 08/27/19 25 08/26/2024 CMP (FEMA LE) potassium 4.0 mmol/ L 3.5-5. 1 Not Available [facility] [address] [facility], [place], [address], 08/26/2024 16:57:53 08/27/19 25 08/26/2024 CMP (FEMA LE) chloride 101.0 mmol/ L 98.0-1 10.0 normal Not Available [facility] [address] [facility] [address], [place], [address], 08/26/2024 16:57:53 08/27/19 25 08/26/2024 CMP (FEMA LE) C02 28.0 mmol/ L 22.0-3 1.0 Not Available [facility] [address] [address], [place], [facility], 08/26/2024 16:57:53 08/27/19 25 08/26/2024 CMP (FEMA LE) anion gap 10.0 calc Not Available [facility] [address] [address], [place], [facility], 08/26/2024 16:57:53 08/27/19 25 08/26/2024 CMP (FEMA LE) osmolality 292.8 calc Not Available [facility] [address] [address], [place], [address], 08/26/2024 16:57:53 08/27/19 25 08/26/2024 TSH TSH 1.49 uIU/m L 0.49-3 .82 Not Available [facility] [address] [address], [place], [facility], 08/26/2024 17:02:16 08/27/19 25 08/28/2024 T4, FREE T4, free 1.4 NG/dL 0.8-1. 8 normal Not Available [facility] [address] [place], [address], 08/28/2024 09:21:53 08/27/1908/28/2024 CULTU RE, URINE , ROUTI NE culture, urine, routine SEE NOTE CULTU RE, URINE , ROUTI NE Micro Numbe r: [id number] Test Statu s: Final Speci men Sourc e: Urine Speci men Quali ty: Adequ ate Resul t: 10,00 0-49, 000 CFU/m L of Non-u ropat hogen ic Gram posit malena organ ism May repre sent colon izers from exter nal and inter nal genit amparo. No furth er testi ng (incl uding susce ptibi lity) will be perfo rmed. COMME NT: Addit ional non-p redom inati ng organ ism(s ) isola belen. These organ isms, commo nly found on exter nal and inter nal genit amparo, are consi dered colon izers . No furth er testi ng perfo rmed. Not Available [facility] [address] [place], [address], 08/28/2024 09:21:54 01/23/2001/23/2024 elect rocar diogr am No observ ation record ed. [email or web address] [facility] [address] [place] [address], [address], 01/26/2024 08:54:51 01/23/2006/27/2024 XR, chest , 2 view No observ ation record ed. [email or web address] [facility] [address] [place], [address], 06/28/2024 08:41:30 01/23/20 elect rocar diogr am No observ ation record ed. [email or web address] Not Available 2023 15:35:38 01/23/20 elect rocar diogr am No observ ation record ed. [email or web address] Not Available 2023 16:53:10 01/26/2001/23/2024 XR, chest , 2 view No observ ation record ed. [email or web address] [facility] [address] [place], [address], 01/27/2024 15:32:57 01/30/20 24 01/29/2024 MAMMO , scree juan, bilat eral No observ ation record ed. [email or web address] [place], [address], 02/03/2024 10:49:05 Result Notes None recorded. Problems Name Problem SNOMED Code Status Onset Date Resolution Date Notes Provider Name and Address Organization Details Recorded Time Benign hyperten desmond 60499361 Completed 201309/17/2013 [facility] - Status is Inactive ; 09/18/19 14 6:24PM by Carlotta Elizabeth CMT, Annotati on/Adden dum; Promoted ; acuity set as *; Not Available [facility] 3 03:16:01 Arthropa thy 833365675 Active 2021 ARTHRITI S Sherrie jacobo [facility] 5 15:04:15 Fibromya lgia 874956832 Active 2021 Sherrie jacobo [facility] 5 15:04:15 Knee pain Active 2021 Sherrie jacobo [facility] 5 15:04:15 Acute deep vein thrombos is of lower limb 24455183936 8 Completed 202108/26/2024 DVT OF LEG (DEEP VENOUS THROMBOS IS) Sherrie jacobo [facility] 5 15:03:31 Atrial fibrilla tion 26384546 Active 2021 JUD LEON null, [facility] 4 13:33:18 Dysthymi a 24203631 Active 2021 ANXIETY WITH DEPRESSI ON Sherrie Durga null, [facility] 5 15:04:15 Gouty arthropa thy 431683769 Active 2022 GOUT, ARTHRITI S Sherrie Calixto null, [facility] 5 15:04:15 Edema of lower extremit y 574732536 Active 2023 Sherrie Calixto null, [facility] 5 15:04:15 Morbid obesity 925755984 Active 2023 Sherrie Calixto [facility], [facility] 5 15:04:15 [facility] hyper[facility] desmond 64902055 Active 2023 JUD LEON [facility], [facility] 4 13:39:28 Congesti ve heart failure 53246689 Active 2023 JUD LEON [facility], [facility] 4 13:38:58 Chronic kidney disease 638927989 Active 2023 JUD LEON [facility], [facility] 4 13:39:10 Endometr ial carcinom a 375603731 Active 2023 FIIGP stage II (pT2, pN0(sn), cM0 Sherrie Calixto [facility], [facility] 5 15:04:15 Dysuria 92755951 Active 2024 Sherrie Calixto null, [facility] 5 09:12:42 Hyperten sive heart AND chronic kidney disease with congesti ve heart failure 30780304845 107 Active 2024 [facility] 5 15:04:15 Chronic kidney disease stage 3B 775565672 Active 2024 [facility] 5 15:04:15 Abnormal urine odor 9082565 Active 2024 [facility] 5 15:03:22 Problem Notes None recorded. Procedures Surgical History Date Name Laterality Status Provider Name and Address Organization Details Recorded Time 11/28/19 23 Joint Inj Kenalog- Shoulder, Hip, Knee completed Robert Perez MD [address] [place] [address], [address] 11/27/2022 10:15:00 01/06/20 18 arthroscopic meniscectomy completed [facility] 11/04/2023 13:42:40 12/11/19 12 Colonoscopy completed [facility] 11/04/2023 13:43:20 Cholecystectomy completed [facility] 11/04/2023 13:41:18 radical hysterectomy completed [facility] 11/04/2023 13:41:36 Appendectomy completed [facility] 11/04/2023 13:41:42 Imaging Results None recorded. Procedure Notes None recorded. Medical Equipment None Reported. Allergies Allergen ID Allergen Name Allergen Category Reaction Reaction Severity Criticality Documentation Date Start Date Code Code System Note Provider Name and Address Organization Details Recorded Time 88573 Non-stero idal anti-infl ammatory agent (substanc e) medicatio n other severe high 11/02/2022 57607 5006 SNOMED React ion: Chron ic Kidne y Disea se [facility] 4 13:34:38 34672 Latex Exam Gloves medicatio n hives itching mild mild low 11/02/2022 Amanda [facility] L[facility]eroL[facility]eroC[facility]ero 4 13:34:30 14062 Substance with quinolone structure and antibacte rial mechanism of action (substanc e) medicatio n Not available Not available low 05/06/2024 42967 1999 SNOMED Use with cauti on, only if neces terese Balderas Durga [facility] L[facility]eroL[facility]eroC[facility]ero 5 10:03:11 Medications Name Sig Start Date [...] hydrocort isone three times daily, as needed 09/19/ 2017 07/30 /2024 completed Not Available Not Available Not Available Vitamin D weekly 11/27 completed 436; Recorded 06/03/19 7:38AM by Jud Leon LPN (Authori yao through Robert Perez MD), Refill Request; Refill Quantity : 4; [...] by Jud Leon LPN (Authori yao through Robert Perez MD), Annotati on/Adden dum; Refill Quantity : [...] height Body mass index (BMI) Body weight Heart rate Oxygen saturation Oxygen saturation in Arterial blood by Pulse oximetry Body temperature Systolic And Diastolic Provider Name and Address Organization Details Last Updated DateTime 5 161.29 cm 49.3 kg/m2 595603. 64 g 96 /min 96 % 96 % 97.1 [degF] 126/78 mm[Hg] Sherrie Calixto [facility] 5 09:22:07 Date Recorded Body height Body mass index (BMI) Body weight Body temperature Heart rate Oxygen saturation Oxygen saturation in Arterial blood by Pulse oximetry Systolic And Diastolic Provider Name and Address Organization Details Last Updated DateTime 5 161.29 cm 49.5 kg/m2 978090. 23 g 96.7 [degF] 101 /min 94 % 94 % 140/84 mm[Hg] [facility] 5 14:44:05 Date Recorded Body height Body mass index (BMI) Body weight Body temperature Heart rate Oxygen saturation Oxygen saturation in Arterial blood by Pulse oximetry Systolic And Diastolic Provider Name and Address Organization Details Last Updated DateTime 4 161.29 cm 49.2 kg/m2 278624. 05 g 97.4 [degF] 116 /min 97 % 97 % 118/68 mm[Hg] JUD CAROLYN [facility] 4 13:25:11 Date Recorded Body height Body mass index (BMI) Body weight Body temperature Heart rate Oxygen saturation Oxygen saturation in Arterial blood by Pulse oximetry Systolic And Diastolic Provider Name and Address Organization Details Last Updated DateTime 4 161.29 cm 49.5 kg/m2 701348. 23 g 97.3 [degF] 92 /min 90 % 90 % 118/70 mm[Hg] [facility] 4 13:59:02 Date Recorded Body height Body mass index (BMI) Body weight Heart rate Oxygen saturation Oxygen saturation in Arterial blood by Pulse oximetry Body temperature Systolic And Diastolic Provider Name and Address Organization Details Last Updated DateTime 4 161.29 cm 49.5 kg/m2 418739. 23 g 77 /min 94 % 94 % 97.3 [degF] 132/86 mm[Hg] [facility] 4 11:54:55 Social History None recorded. Functional Status Question Answer Note LastModified by Organizat ion Details LastModified Time Do you use any illicit or recreational drugs? No [email or web address] Information not available 11/04/2023 Do you or have you ever used any other forms of tobacco or nicotine? No [email or web address] Information not available 11/04/2023 What is your level of alcohol consumption? None [email or web address] Information not available 11/04/2023 Do you or have you ever used any nicotine-free cigarettes, vape, or chewing tobacco? No [email or web address] Information not available 11/04/2023 Mental Status None recorded. Family History Relationship Description Onset Age of this Age Resolved Age Notes LastModified by Organization Details LastModified Time Father Hypertensive disorder emerald Not available 11/03 13:38:27 Medical History No medical history recorded. Gynecological HistoryNo gynecological history recorded. Obstetrics History GPAL:G 0 P 0 0 0 0 Immunizations Vaccine Type Date Status Note Provider Nam e and Address Organization Details Recorded Time Influenza, split virus, trivalent, preservative 8 completed Sherrie Durga [facility] 11/27/2022 09:54:35 Influenza, split virus, trivalent, preservative 7 completed Sherrie Durga [facility] 11/27/2022 09:54:35 Influenza, split virus, trivalent, preservative [facility] 11/27/2022 09:54:35 Influenza, split virus, trivalent, preservative 5 completed [facility] 11/27/2022 09:54:35 Pneumococcal conjugate PCV 13 8 completed [facility] 11/27/2022 09:54:35 Influenza, split virus, trivalent, preservative 2 completed Sherrie Durga [facility] 11/27/2022 09:54:35 zoster live 8 completed [facility] 11/27/2022 09:54:[address] [facility] 11/27/2022 09:54:35 Influenza, high-dose, quadrivalent, PF 1 completed Sherriegiacomo Calixto [facility] 11/27/2022 09:54:34 Influenza, high-dose, quadrivalent, PF 2 completed [facility]riegiacomo [facility] 11/27/2022 09:54:35 COVID-19, mRNA, LNP-S, PF, 100 mcg/0.5mL dose or 50 mcg/0.25mL dose 1 completed Sherrie Aguilaroch [facility] 11/27/2022 09:54:35 COVID-19, mRNA, LNP-S, PF, 100 mcg/0.5mL dose or 50 mcg/0.25mL dose 2 completed Sherriegiacomo Calixto [facility] 11/27/2022 09:54:35 COVID-19, mRNA, LNP-S, PF, 100 mcg/0.5mL dose or 50 mcg/0.25mL dose 1 completed Sherrie Calixto [facility] 11/27/2022 09:54:35 Hep B, unspecified formulation 0 completed Sherrie Calixto [facility] 11/27/2022 09:54:35 Hep B, unspecified formulation 9 completed Sherrie Durga [facility] 11/27/2022 09:54:35 Hep B, unspecified formulation 8 completed Sherriegiacomo Aguilaroch [facility] 11/27/2022 09:54:35 COVID-19, mRNA, LNP-S, PF, 50 mcg/0.5 mL 3 completed JUD LEON [facility] 11/04/2023 13:19:24 Influenza, adjuvanted, quadrivalent, PF 3 completed Amanda Caldwell null, [facility] 11/21/2023 13:34:16 Pneumococcal conjugate PCV20, polysaccharide KDI214 conjugate, adjuvant, PF 3 completed Sherrie jacobo, [facility], [facility] 11/27/2022 12:19:18 zoster recombinant 3 completed Sherrie jacobo, [facility], L[facility]eroL[facility]ero 11/27/2022 12:19:18 Influenza, high-dose, trivalent, PF 4 completed Not Available [facility] 08/26/2024 13:48:53 COVID-19, mRNA, LNP-S, PF, 50 mcg/0.5 mL 4 completed Not Available [facility] 08/26/2024 13:48:53 RSV, recombinant, protein subunit RSVpreF, adjuvant reconstituted, 0.5 mL, PF 4 completed Not Available [facility] 08/26/2024 13:48:53 Past Encounters Encounter ID Performer Location Encounter Start Date Encounter Closed Date Diagnosis/Indication Diagnosis SNOMED-CT Code Diagnosis ICD10 Code Diagnosis IMO Codes Diagnosis Note [id number] Robert Perez MD [facility] ([facility]) [address] [place] [phone] 5 11/27/2022 09:45:38 11/27/2022 11:31:09 Administration of pneumococcal vaccine 28642055 Z23 Active or passive immunization 572693043 Z23 [id number] ADRIENNE VERA [facility] ([facility]) [address] [place] [phone] 05/10/2023 10:41:12 05/10/2023 11:30:04 Dysuria 18731127 R30.0 Increase water intake. [id number] Robert Perez MD [facility] ([facility]) [address] [place] [phone] 10/27/2023 11:14:48 10/27/2023 11:49:54 Edema of lower extremity 878701635 R60.0 she moved homes over the weekend. she was on her feet a lot and busy and over did it. please sign for cardiologi st last noted.she is junking when it comes to diet due to the move. we discussed needing to get back to a lower sodium diet. she had not been compliant with her evening furosemide .lasix 40 mg daily for 5 days in the afternoon3 days ago she added back the 20 mg dose in the evening. [id number] Robert Perez MD [facility] ([facility]) [address] [place] [phone] 11/04/2023 13:15:15 11/04/2023 15:58:26 Atrial fibrillation 70347620 I48.91 Morbid obesity 887554330 E66.01 Essential hypertension 62715128 I10 Hypertensi ve heart and renal disease with (congestive) heart failure 464251491 I13.0 Congestive heart failure 71902542 I50.9 monitor HR and bp and weight dailyresum e jardiance watching for signs of skin, yeast, and bladder infection call in to cardiology low sodium diet as discussed [id number] Robert Perez MD [facility] ([facility]) [address] [place] [id number] 5 11/25/2023 13:50:31 11/25/2023 14:36:07 Congestive heart failure 16244019 I50.9 monitor HR and bp and weight dailyresum e jardiance watching for signs of skin, yeast, and bladder infection call in to cardiology low sodium diet as discussed. [id number] Robert Perez MD [facility] ([facility]) [address] [place] [address] [phone] 5 01/23/2024 11:41:04 01/23/2024 13:39:07 Chest pain 24756914 R07.9 Myositis 84639874 M60.9 improving. she will go to ER if worseninge kg is at baseline.s x c/w brisk immune response to vaccine.mu scle strength is normal dtr's normal sensation normal. tylenol prn [id number] Robert Perez MD [facility] ([facility]) [address] [place] [address] [phone] 05/06/2024 09:06:30 05/06/2024 10:37:35 Dysuria 17202102 R30.0 please give a new sample for culture. given sx's will tx for uti. Congestive heart failure 34483504 I50.9 Essential hypertension 42412955 I10 Atrial fibrillation 4943 6004 I48.91 Hypertensi ve heart AND chronic kidney disease with congestive heart failure 6292648671 9107 I13.0 Chronic ki dney disease stage 3B 923825605 N18.32 Body mass index 40+ - severely obese 221281309 Z68.42 [id number] Robert Perez MD [facility] ([facility]) [address] [place] [id number] 08/26/2024 13:48:10 08/27/2024 10:52:20 Abnormal urine odor 4216725 R82.90 419356 repeat urine for cx Fatigue 26976894 R53.83 5017434 Nausea and vomiting 1693 2000 R11.2 2378558664 Health Concerns Section Related Observation LastModified by Organization Detai ls LastModified Time None Recorded Concern Status LastModified by Organization Details LastModified Time None Recorded Advance Directives Directive None Recorded Payers Insurance Date Sequence Insurance Name Policy Number Policy Garcia Covered Member ID Garcia Member ID Guarantor Name 08/26/2024 [place] - [facility] (MEDICARE) Archana L Beavers [id number] Archana L Beavers 08/26/2024 2 MEDICO INSURANCE [employer] (MEDICARE SUPPLEMENT) Archana L Beavers [id number] Archana L Beavers 08/26/2024 1 [place] [employer] Archana L Beavers [id number] Archana L Beavers 05/06/2024 2 [employer] (MEDICARE SUPPLEMENT) Archana L Beavers [id number] Archana L Beavers Notes Date Note Type Note Provider Name and Address Organization Details Recorded Time 4 text/html EdemaReported by PatientHPIFor quality, patient reportspainfulbut reportsimproves overnight. For location, patient reportsbleandfeet. For onset/timing, patient reportsstarted 12 days ago. For modifying factors, patient reportsrelieved by position (elevating legs)anddiuretic medication. For associated symptoms, patient reportsno shortness of breath,no cough,no chest pain, andno palpitations.1 week f/u. Furosemide was increased X 3 days at her last visit. Patient reports that her sxs have improved.ROS as noted in the HPI she noted an increase in swelling 3-4 days ago.this has improved quite a lot. her dyspnea has improved.she has no orthopnea Robert Perez MD [address] [place] [address], [phone], [facility] 11/04/2023 14:01:22 4 text/html EdemaReported by PatientHPIFor quality, patient reportspainfulbut reportsimproves overnight. For associated symptoms, patient reportsshortness of breath with exertionandcoughbut reportsno chest painandno palpitations. For location, patient reportsbleandfeet. For onset/timing, patient reportsstarted 1 months ago. For modifying factors, patient reportsrelieved by position (elevating legs)anddiuretic medication.1 month f/u. Swelling has improved.ROS as noted in the HPI s Robert Perez MD [address] [place] [address], [phone], [facility] 11/25/2023 14:16:34 4 text/html jr chest pain hpiReported by PatientHPIFor associated symptoms, patient reportsexertional dyspnea,decrease in exercise capacity,fatigue,lighthe adedness, andmuscle achesbut reportsno associated palpitationsandno associated dizziness. For location, patient reportssubsternal on the left. For onset/timing, patient reportsstarted 7 days ago. For quality, (dull).Pt states this chest pain started after she got the covid and flu vaccine. She developed fatigue, body aches, and chest pain shortly after getting these vaccines. Her body aches has resolved. Her fatigue has improved, but is not gone. The chest pain was present until today.she chilled the night after her shots. ROS as noted in the HPI Robert Perez MD [address] [place], [phone], [facility], LNisha. 01/23/2024 12:32:49 5 text/html LUTSReported by PatientHPIFor associated symptoms, patient reportsback pain,nausea,urine odor, andfeelings of urgencybut reportsno abdominal pain,normal emptying of bladder,no hematuria, andno fever. For quality, patient reportsburning. Robert Perez MD [address] [place], [phone], [facility], Javier. 05/06/2024 10:02:21 5 text/html Generic HPI TemplateReported by PatientPt is here today due to weakness and fatigue. She states she is having difficulty walking. She is having difficulty sleeping due to her afib. She has not had any fever or confusion. No sinus sx. She does have some right sided low back pain. She has noticed an odor to her urine. No dysuria or hematuria. She cannot provide a time line of sx. Friday after going to bed she woke up in the night with diarrhea. no bloody stool. no fever. she did not have any vomiting or diarrhea yesterday or today. however, her appetite is decreased. last night she had a grilled cheese. she has not eaten since. she has had some water today. she still feels nauseated. Robert Perez MD [address] [place], [address], [facility], LGueroLPreston. 08/26/2024 15:46:50 OBGyn Episode No OBEpisode recorded.
--- NOTE | 2025-01-06 15:56 | ECG_ITS ---
[facility] Date: 2025-01-06 Pat Name: Archana Garcia Department: Room: Gender: Female Animal Assisted Therapist: : 1945 Requested By: Tomas Carlos Order Number: [id number] Maxine MD: Praveen Rocha M.D. Measurements Intervals [place] Rate: 91 P: 0 WI: 0 QRS: -86 QRSD: 133 T: 29 QT: 363 QTc: 447 Interpretive Statements ATRIAL FIBRILLATION RIGHT BUNDLE BRANCH BLOCK [120+ ms QRS DURATION, UPRIGHT V1, 40+ ms S IN I/aVL/V4/V5/V6] LEFT ANTERIOR FASCICULAR BLOCK [QRS AXIS <= -45, QR IN I, RS IN II] POSSIBLE ANTERIOR MYOCARDIAL INFARCTION , OF INDETERMINATE AGE [30 ms Q WAVE IN V3/V4, OR R < 0.2 mV IN V4] Compared to ECG 04/30/2024 10:37:24 Left anterior fascicular block now present Left-axis deviation no longer present Myocardial infarct finding still present Electronically Signed On 01-06-2025 17:11:19 CDT by Praveen Rocha M.D. [id number] [id number]
--- NOTE | 2025-01-06 16:18 | XRR_ITS ---
PROCEDURE INFORMATION: Exam: XR Chest Exam date and time: 01/06/2025 4:42 PM Age: 79 years old Clinical indication: Pain; Chest pressure; Additional info: Chest pain TECHNIQUE: Imaging protocol: Radiologic exam of the chest. Views: 1 view. COMPARISON: CR XR chest 2V* [id number] 01/23/2024 1:10 PM FINDINGS: Lungs: Unremarkable. No consolidation. Pleural spaces: Unremarkable. No pleural effusion. No pneumothorax. Heart/Mediastinum: Heart size is at the upper limit of normal. Mediastinal size is normal. Bones/joints: Moderate left glenohumeral degenerative changes. Extensive bridging osteophytes throughout the visualized spine. Intraperitoneal space: Multiple surgical clips are again noted in the left upper quadrant. XR/XR chest 1V portable [id number] IMPRESSION: No acute findings.
[2025-01-06 16:38] LABS: Hematocrit 42.7 % (36-47); Hemoglobin 13.80 g/dL (11.27-16.99); Mean Corpuscular HGB Conc 32.3 g/dL (30-55); Mean Corpuscular Hemoglobin 30.5 pg (27-33); Mean Corpuscular Volume 94.5 fl (85-98); Nucleated Red Blood Cells % 0 %; Platelet Count 173 10^3/cmm (157-399); Red Blood Count 4.52 10^6/uL (3.85-5.65); White Blood Count 7.49 10^3/uL (3.29-11.43)
[2025-01-06 17:01] LABS: Troponin(5th) Baseline 16 ng/L (0-10)
[2025-01-06 17:24] LABS: Alanine Aminotransferase 14 U/L (0-33); Albumin Level 3.6 g/dL (3.5-5.2); Alkaline Phosphatase 85 U/L (35-105); Anion Gap 17.8 (5-19); Aspartate Amino Transferase 12 U/L (0-32); Blood Urea Nitrogen 30 mg/dL (8-23); Calcium 9.2 mg/dL (8.5-10.5); Carbon Dioxide 22 mmol/L (22-29); Chloride 101 mmol/L (98-107); Creatinine Clr Calc Pharmacy 41.4628; Globulin 3.2 g/dL (1.3-4.6); Glucose 153 mg/dL (65-115); NT Pro B Type Natriuretic Pept 1083 pg/mL (0-450); Osmolality Calculated 293 mOsm/kg (285-295); Potassium 3.8 mmol/L (3.5-5.1); Sodium 137 mmol/L (136-145); Total Protein 6.8 g/dL (6.6-8.7)
--- NOTE | 2025-01-06 17:37 | W.ED.CHESTPA ---
HPI - Chest Pain General: Chief Complaint: Chest Pain Stated Complaint: CP SOB Time Seen by Provider: 01/06/25 17:34 History of Present Illness: 79-year-old female with a history of morbid obesity, hypertension, atrial fibrillation and anticoagulation on Xarelto who presents to the emergency room with chest pain. Says this been going on for a few days. Says it feels like something squeezing in her left chest. Radiates into her back. She also feels like she has increased short of breath and more tired and weak no known fevers. No altered mental status. No cough. No nausea or vomiting. Related Data Home Medications ?Medication ?Instructions ?Recorded ?Confirmed acetaminophen 650 mg 1,300 mg PO Q12H PRN Pain 03/24/23 04/30/24 tablet,extended release colestipol 1 gram tablet 1 g PO BID 03/24/23 04/30/24 diltiazem HCl 240 mg 240 mg PO DAILY 03/24/23 04/30/24 capsule,extended release 24 hr ergocalciferol (vitamin D2) 1,250 1,250 mcg PO Q7D 03/24/23 04/30/24 mcg (50,000 unit) capsule escitalopram oxalate 10 mg tablet 10 mg PO DAILY 03/24/23 04/30/24 furosemide 40 mg tablet 40 mg PO DAILY 03/24/23 04/30/24 losartan 50 mg tablet 50 mg PO BID 03/24/23 04/30/24 pantoprazole 40 mg tablet,delayed 40 mg PO DAILY 03/24/23 04/30/24 release potassium chloride 20 mEq 20 meq PO DAILY 03/24/23 04/30/24 tablet,extended release(part/cryst) (Klor-Con M) rivaroxaban 15 mg tablet (Xarelto) 15 mg PO DAILY 03/24/23 04/30/24 simvastatin 10 mg tablet 10 mg PO DAILY 03/24/23 04/30/24 empagliflozin 10 mg tablet 10 mg PO DAILY 04/30/24 04/30/24 (Jardiance) Allergies Allergy/AdvReac Type Severity Reaction Status Date / Time ciprofloxacin (From Cipro) Allergy Unknown Verified 04/30/24 10:29 Latex, Natural Rubber Allergy ALGY-Hives Verified 04/30/24 10:29 Penicillins Allergy Unknown Verified 04/30/24 10:29 Review of Systems Narrative: Constitutional symptoms: Negative except as documented in HPI. Skin symptoms: Negative except as documented in HPI. Eye symptoms: Negative except as documented in HPI. ENMT symptoms: Negative except as documented in HPI. Respiratory symptoms: Negative except as documented in HPI. Cardiovascular symptoms: Negative except as documented in HPI. Gastrointestinal symptoms: Negative except as documented in HPI. Genitourinary symptoms: Negative except as documented in HPI. Musculoskeletal symptoms: Negative except as documented in HPI. Neurologic symptoms: Negative except as documented in HPI. Psychiatric symptoms: Negative except as documented in HPI. Endocrine symptoms: Negative except as documented in HPI. PFSH ED PFSH: Social History Smoking and tobacco/nicotine status: never used tobacco/nicotine Physical Exam Narrative: EXAM NARRATIVE: General: Alert, no acute distress. Skin: Warm, dry. Head: Normocephalic, atraumatic. Neck: Supple, trachea midline. Eye: Extraocular movements are intact. Ears, nose, mouth and throat: mucosa moist. Cardiovascular: Regular, Normal peripheral perfusion. Respiratory: Lungs are clear to auscultation, respirations are non-labored, breath sounds are equal, Symmetrical chest wall expansion. Gastrointestinal: Soft, Nontender, Non distended Musculoskeletal: Normal ROM, no deformity. Neurological: Alert and oriented, No focal neurological deficit observed. Psychiatric: Cooperative, appropriate mood & affect. Course Vital Signs: Vital signs: Vital Signs Temperature 97.6 F 01/06/25 15:48 Pulse Rate 76 01/06/25 18:43 Respiratory Rate 20 H 01/06/25 15:48 Blood Pressure 100/70 01/06/25 18:43 Pulse Oximetry 95 01/06/25 18:43 Oxygen Delivery Me thod Room Air 01/06/25 18:43 MDM - Chest Pain Medical Decision Making Differential diagnosis for patient with chest pain includes but is not limited to and based on the above HPI, review of systems and physical exam: Pneumonia. unstable angina. angina. Acute coronary syndrome / MA. Pulmonary embolism. Costochondritis / musculoskeletal. Pleurisy. Pericarditis. Esophageal spasm. Pancreatis. Cholecystitis. Orders placed to evaluate differential diagnosis based on the above differential, HPI and physical exam EKG: Time 1551. Rate 91. Right bundle branch block. Left anterior fascicular block. Atrial fibrillation with controlled rate, nonspecific ST changes, no ectopy, This was reviewed and interpreted by myself the ER physician at 1557 Repeat EKG: Time 1841. Rate 86. Right bundle branch block. Left anterior fascicular block. Atrial fibrillation with controlled rate, nonspecific ST changes, no ectopy, This was reviewed and interpreted by myself the ER physician at 1848 Chest x-ray: No acute process. No infiltrate. No pneumothorax. This was reviewed and interpreted by myself the emergency room physician. I also reviewed the radiology report. Lab Review: Laboratory results were reviewed and interpreted by myself the emergency room physician. No leukocytosis. No anemia. Stable chronic renal insufficiency with a BUN and creatinine of 31.5. Cardiac markers initially 17 but comes down a little bit but not significantly on repeat. I reviewed the patient's medical record. 79-year-old female with a history of morbid obesity, hypertension, atrial fibrillation and anticoagulation on Xarelto Reexamination: Patient remained stable. No increased work of breathing. No altered mental status. No focal motor deficits. Patient still with some left-sided chest pain. She has some hesitancy on being admitted but ultimately she agrees. I am going to order a noncontrast chest CT. Consultation: I spoke with Dr. Stoll who is on-call for the hospital service who agrees to admission Assessment and plan: Chest pain Hypotension ?Normal saline bolus and have ordered a noncontrast chest CT -I discussed the patient with the hospitalist on-call who is admitting the patient. - Discussed findings and plan with patient. Answered any questions. - All laboratory values were reviewed and interpreted personally by myself, the ER physician - All imaging was reviewed and interpreted personally by myself, the ER physician. - Evaluation and treatment of this problem were appropriate in the emergency setting Lab Data 01/06/25 16:30 01/06/25 16:30 Radiology Impressions Chest X-Ray 01/06/25 16:18 IMPRESSION: No acute findings. Laboratory Results WBC 7.49 10^3/uL (3.29-11.43) 01/06/25 16:30 RBC 4.52 10^6/uL (3.85-5.65) 01/06/25 16:30 Hgb 13.80 g/dL (11.27-16.99) 01/06/25 16:30 Hct 42.7 % (36-47) 01/06/25 16:30 MCV 94.5 fl (85-98) 01/06/25 16: MCH 30.5 pg (27-33) 01/06/25 16: MCHC 32.3 g/dL (30-55) 01/06/25 16:30 RDW 12.8 % (12.1-15.1) 01/06/25 16:30 Plt Count 173 10^3/cmm (157-399) 01/06/25 16:30 MPV 9.5 fL (7.4-10.4) 01/06/25 16:30 Neut % (Auto) 82.0 % 01/06/25 16:30 Lymph % (Auto) 11.2 % 01/06/25 16:30 Granite % (Auto) 5.3 % 01/06/25 16:30 Eos % (Auto) 0.8 % 01/06/25 16:30 Baso % (Auto) 0.3 % 01/06/25 16:30 Neut # (Auto) 6.14 10^3/uL (1.8-7.7) 01/06/25 16:30 Lymph # (Auto) 0.8 10^3/uL (0.8-4.8) 01/06/25 16:30 Granite # (Auto) 0.4 10^3/uL (0.2-0.9) 01/06/25 16:30 Eos # (Auto) 0.1 10^3/uL (0.0-0.8) 01/06/25 16:30 Baso # (Auto) 0.0 10^3/uL (0.0-0.1) 01/06/25 16:30 Nucleated RBC % (auto) 0 % 01/06/25 16: Nucleated RBCs # 0.0 /100WBC 01/06/25 16:30 Sodium 137 mmol/L (136-145) 01/06/25 16:30 Potassium 3.8 mmol/L (3.5-5.1) 01/06/25 16:30 Chloride 101 mmol/L (98-107) 01/06/25 16:30 Carbon Dioxide 22 mmol/L (22-29) 01/06/25 16:30 Anion Gap 17.8 (5-19) 01/06/25 16:30 BUN 30 mg/dL (8-23) H 01/06/25 16:30 Creatinine 1.5 mg/dL (0.5-0.9) H 01/06/25 16:30 GFR Calculation Not Reportable 01/06/25 16:30 Glucose 153 mg/dL (65-115) H 01/06/25 16:30 Calculated Osmolality 293 mOsm/kg (285-295) 01/06/25 16:30 Calcium 9.2 mg/dL (8.5-10.5) 01/06/25 16:30 Total Bilirubin 0.6 mg/dL (0.15-1.2) 01/06/25 16:30 AST 12 U/L (0-32) 01/06/25 16:30 ALT 14 U/L (0-33) 01/06/25 16:30 Alkaline Phosphatase 85 U/L (35-105) 01/06/25 16:30 Troponin T Baseline 16 ng/L (0-10) H 01/06/25 16:30 Troponin T 120 Minute 13.93 ng/L (0-10) H 01/06/25 18:18 Delta Troponin T -2.07 ABS# (0-10) L 01/06/25 18:18 NT-Pro-B Natriuret Pep 1083 pg/mL (0-450) H 01/06/25 16:30 Total Protein 6.8 g/dL (6.6-8.7) 01/06/25 16:30 Albumin 3.6 g/dL (3.5-5.2) 01/06/25 16:30 Globulin 3.2 g/dL (1.3-4.6) 01/06/25 16:30 All radiology interpretation(s) finalized by discharge Clincial Decision Support The following clinical decision support tools were used to aid in care of the patient HEART Score -> History: Moderately Suspicious, EKG: Non-specific Changes, Age: 65 or more yrs, Risk Factors: 1 or 2 Risk Factors, Troponin: Baseline Trop 16-45 ng/L. Resulting HEART Score: 6. Discharge Plan Discharge Patient Disposition: Admitted As Inpatient Admit Provider: Cipriano Stoll Clinical Impression: Chest pain, Hypotension Condition: Stable Coding Level of Care Code ED Manager Photography for Chg Fwd Heart Score HEART Score Components History: Moderately Suspicious EKG: Non-specific Changes Age: 65 or more yrs Risk Factors: 1 or 2 Risk Factors Troponin: Baseline Trop 16-45 ng/L HEART Score RESULT HEART Score: 6
--- NOTE | 2025-01-06 18:41 | ECG_ITS ---
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 Measurements Intervals [place] Rate: 86 P: 0 DE: 0 QRS: -82 QRSD: 132 T: 34 QT: 381 QTc: 458 Interpretive Statements ATRIAL FIBRILLATION RIGHT BUNDLE BRANCH BLOCK [120+ ms QRS DURATION, UPRIGHT V1, 40+ ms S IN I/aVL/V4/V5/V6] LEFT ANTERIOR FASCICULAR BLOCK [QRS AXIS <= -45, QR IN I, RS IN II] Compared to ECG 01/06/2025 15:51:31 Myocardial infarct finding no longer present Electronically Signed On 01-06-2025 18:53:11 CDT by Praveen Rocha M.D. [email or web address] [id number]
[2025-01-06 19:31] LABS: Troponin 5 2HR 13.93 ng/L (0-10)
[2025-01-06 19:32] LABS: Troponin 5 2HR Delta -2.07 ABS# (0-10)
--- NOTE | 2025-01-06 19:41 | CTR_ITS ---
PROCEDURE INFORMATION: Exam: CT Chest Without Contrast; Diagnostic Exam date and time: 01/06/2025 8:06 PM Age: 79 years old Clinical indication: Chest pressure; Prior surgery; Surgery date: 6+ months; Surgery type: Stomaach stapled, gb; PT C/O chest pain. PT stated it feels like something is squeezing her and now radiates into her back. pt unable to raise lt arm above head for scan TECHNIQUE: Imaging protocol: Diagnostic computed tomography of the chest without contrast. Radiation optimization: All CT scans at this facility use at least one of these dose optimization techniques: automated exposure control; mA and/or kV adjustment per patient size (includes targeted exams where dose is matched to clinical indication); or iterative reconstruction. COMPARISON: CR (CHEST, ) 01/06/2025 4:42 PM RADIATION DOSE METRICS: Total DLP (mGy-cm): 808.41 FINDINGS: Tubes, catheters and devices: Numerous surgical aldo in the left upper quadrant Lungs: A small amount of peripheral interstitial thickening in the lower lungs is nonspecific, but favors chronic interstitial disease. No lung consolidation or mass. Pleural spaces: Unremarkable. No pneumothorax. No pleural effusion. Heart: Calcification is present on the mitral valve and aortic valve. Mild left atrial enlargement. Other cardiac chambers are within normal limits for size. Coronary arteries: Mild coronary artery calcifications. Lymph nodes: No lymph node enlargement. Vasculature: Ascending aortic caliber is at the upper limit of normal measuring 3.9 cm. A bubble of gas in the pulmonary artery likely represents inadvertent injection during IV placement. Kidneys: 2.4 cm exophytic mass in the left kidney demonstrating near soft tissue density. Bones/joints: Severe degenerative changes in the left glenohumeral joint. Multilevel bulky anterior osteophyte formation in the spine. No acute fractures. Soft tissues: Unremarkable. CT/CT chest wo con [id number] IMPRESSION: 1. No acute disease identified in the chest. 2. 2.4 cm exophytic mass in the left kidney demonstrating near soft tissue density. If not previously characterized, recommend initial characterization with nonemergent renal ultrasound, followed by renal protocol MRI if the lesion remains indeterminate or CT if MRI is contraindicated. COMMENTS: Consistent with the [employer]'s Incidental Findings Committee white paper (J Am Lore Radiol 2018): Any incidental renal lesion less than 1 cm or classified as too small to characterize, or any incidental cystic renal lesion characterized as simple-appearing, is likely benign. No follow-up imaging is recommended for these lesions per consensus recommendations based on imaging criteria.
--- NOTE | 2025-01-06 22:24 | ECG_ITS ---
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 Measurements Intervals [place] Rate: 66 P: 0 AL: 0 QRS: -79 QRSD: 134 T: 42 QT: 434 QTc: 455 Interpretive Statements ATRIAL FIBRILLATION WITH ABERRANT CONDUCTION OR VENTRICULAR PREMATURE COMPLEXES LEFT AXIS DEVIATION [QRS AXIS < -30] RIGHT BUNDLE BRANCH BLOCK [120+ ms QRS DURATION, UPRIGHT V1, 40+ ms S IN I/aVL/V4/V5/V6] Compared to ECG 01/06/2025 18:41:38 Ventricular premature complex(es) now present Aberrant conduction of supraventricular beat(s) now present Left-axis deviation now present Left anterior fascicular block no longer present Electronically Signed On 01-06-2025 23:28:19 CDT by Praveen Rocha M.D. [id number] [id number]
[2025-01-06 22:50] LABS: Troponin 5 6HR 14.33 ng/L (0-10)
[2025-01-06 22:56] LABS: Troponin 5 6HR Delta -1.67 ng/L (0-12)
[2025-01-06 23:18] LABS: Thyroid Stimulating Hormone 2.91 uIU/mL (0.27-4.20)
[2025-01-07] VITALS (8 sets, daily range): BP systolic 106–138; BP diastolic 56–80; PULSE 60–93; RESP 15–19; TEMP 36.4–36.7; O2SAT 94–98; BMI 49.3
--- NOTE | 2025-01-07 | ECG_ITS ---
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 Interpretive Statements Lung unchanged pre/post procedure; Intraprocedure shortess of breath; Symptoms resoled by discharge PROCEDURE: At the baseline, the EKG revealed atrial fibrillation with nonspecific IVCD. Poor R wave progression. Features of old anterolateral wall IN. Nonspecific ST-T changes.. The baseline heart 70 bpm with a blood pressue of 134/97 mm of Hg Lexiscan was infused over a period of 20 seconds. A total of 0.4 milligrams of Lexiscan was infused. The stress phase was continued for a total of 5 minutes. Heart rate at the end of the stress phase was 91 bpm with a blood pressure 127/82 mm of Hg. The EKG at the peak infusion revealed no significant changes. Sestamibi was injected 20 seconds after the Lexiscan infusion. Heart rate at the end of the recovery phase was 88 bpm with a blood pressure of 117/70 mm of Hg. CONCLUSION: 1. No significant EKG changes with the LexiScan infusion 2. No LexiScan induced chest pain or cardiac arrhythmia 3. Normal blood pressure and heart rate response 4. Sestamibi/sestamibi perfusion scan pending; see separate report. Electronically Signed On 01-09-2025 20:26:21 CDT by Praveen Rocha M.D. [id number] [id number]
--- NOTE | 2025-01-07 01:05 | PM.HP ---
Providers/Chief Complaint Admitting Physician: Cipriano Stoll MD Primary Care Provider: Robert Perez MD Chief Complaint: CP SOB History of Present Illness History as per the previous chart and the patient Archana Garcia is a 79 year old female with past medical history of hypertension, endometrial cancer s/p therapy, sleep apnea/CPAP dependent however does not use it since she cannot sleep with that, atrial fibrillation on Xarelto following with the cardiology came with chest pain. The patient reported mild shortness of breath with chest pain. The chest pain was crushing and central in nature without any radiation. There was mild dizziness associated with it. But did not report any syncope or presyncope, no orthopnea, no PND, no recent increase in her lower leg swellings. The patient did not report any fever or chills. There was no change in her urinary or bowel habits. The chest pain described by the patient was also more of a tenderness when pressed on her left side. the patient is non smoker and no other drug abuse. Medications/Allergies Home Medications ?Medication ?Instructions ?Recorded ?Confirmed ?Last Taken ?Type acetaminophen 650 mg 1,300 mg PO Q12H PRN Pain 03/24/23 04/30/24 03/23/23 History tablet,extended release colestipol 1 gram tablet 1 g PO BID 03/24/23 04/30/24 03/23/23 History diltiazem HCl 240 mg 240 mg PO DAILY 03/24/23 04/30/24 03/23/23 History capsule,extended release 24 hr ergocalciferol (vitamin D2) 1,250 1,250 mcg PO Q7D 03/24/23 04/30/24 03/22/23 History mcg (50,000 unit) capsule escitalopram oxalate 10 mg tablet 10 mg PO DAILY 03/24/23 04/30/24 03/23/23 History furosemide 40 mg tablet 40 mg PO DAILY 03/24/23 04/30/24 03/23/23 History losartan 50 mg tablet 50 mg PO BID 03/24/23 04/30/24 03/23/23 History pantoprazole 40 mg tablet,delayed 40 mg PO DAILY 03/24/23 04/30/24 03/23/23 History release potassium chloride 20 mEq 20 meq PO DAILY 03/24/23 04/30/24 03/23/23 History tablet,extended release(part/cryst) (Klor-Con M) rivaroxaban 15 mg tablet (Xarelto) 15 mg PO DAILY 03/24/23 04/30/24 03/23/23 History simvastatin 10 mg tablet 10 mg PO DAILY 03/24/23 04/30/24 03/23/23 History empagliflozin 10 mg tablet 10 mg PO DAILY 04/30/24 04/30/24 Unknown History (Jardiance) Allergies Allergy/AdvReac Type Severity Reaction Status Date / Time ciprofloxacin (From Cipro) Allergy Unknown Verified 04/30/24 10:29 Latex, Natural Rubber Allergy ALGY-Hives Verified 04/30/24 10:29 Penicillins Allergy Unknown Verified 04/30/24 10:29 PFSH Acute PFSH: Medical History (Updated 01/07/25 @ 01:28 by Cipriano Stoll MD) Endometrial cancer Atypical chest pain Social History Smoking and tobacco/nicotine status: never used tobacco/nicotine Vitals/I&O/Wt Last Vital Signs Temp 97.6 F 01/06/25 15:48 Pulse 70 01/06/25 23:28 Resp 20 H 01/06/25 23:28 BP 100/70 01/06/25 23:28 Pulse Ox 95 01/06/25 23:28 O2 Del Method Room Air 01/06/25 23:28 01/06/25 01/06/25 01/07/25 14:59 22:59 06:59 Intake Total 1000 / 1000 Balance 1000 / 1000 Weight last 48 hrs Weight 127.006 kg Physical Exam Narrative: General: Alert and oriented, lying comfortably without any distress HEENT: Normocephalic, atraumatic, grossly unremarkable exam Cardio: Palpation of the precordium region elicited tenderness, normal rate rhythm, normal S1-S2 without any murmurs, rubs, or gallops and JVD normal Respiratory: normal vascular breathing on auscultation without any wheezes, stridor, rhonchi GI: Abdomen soft, nontender, nondistended, normoactive bowel sounds present all 4 quadrants, Neuro: intact cranial nerves motor and sensory and cerebellar/coordination function without any focal neurological deficit Behavior: Appropriate and cooperative Extremities: Adequate palpable pulses, mild trace edema Skin: grossly unremarkable exam Data 01/06/25 16:30 01/06/25 16:30 A&P Assessment and plan 1. Chest pain: - Patient loaded with aspirin 324 mg once - Start aspirin and statin and Considering patient background of hypertension and atrial fibrillation for stress test tomorrow, and to discontinue if no evidence of ischemia or cardiomyopathy - Echo -No caffeinated drinks or food -Adequate analgesia - Delta troponins were not significantly raised - Telemetry monitoring - TSH is normal 2. Atypical chest pain: - Monitor for any chest tenderness and adequate analgesia 3. Atrial fibrillation: - Continue on Xarelto home dose and diltiazem to 140 mg daily, currently holding the patient blood pressure is on the softer side - Monitor vitals 4. Hypertension: Patient on losartan 50 mg twice daily, hold since the patient blood pressure is on soft side 5. Anxiety: Continue escitalopram 10 mg daily patient already taking at home PDMP PDMP Reviewed: Not Reviewed Attestations Medical Necessity Statement*: Patient will stay overnight for further management of atypical chest pain stress test to review with further plan of care afterwards Time Spent in Patient Care: 16 - 35 minutes (>than 50% of time spent in counselling and/or direct pt care on unit). Other Attestations: Patient condition has been discussed at length with the patient/family, I have independently reviewed the chart labs imaging/diagnostics/EKG. the goals of care and code status with the patient/family/NOK/legal contracts representative, and documented accordingly. The patient/family has been informed about the current condition and further plan of care. Agreed with the plan of care and understood without any language barrier. Every effort was made to ensure accuracy of medical safety director. Any obvious errors or omissions should be clarified with the author of the document. Coding Level of Care Code Acute Code for Chg Fwd Diagnoses Chest pain R07.9 Atypical chest pain R07.89 Atrial fibrillation I48.91 Hypertension I10 Anxiety F41.9
--- NOTE | 2025-01-07 01:20 | PC.NURSE ---
Patient had a run of v-tach lasting several seconds. Dr Stoll notified. Strip was printed out and placed in patient's chart. Patient rounded on and resting comfortably in bed at this time, even and unlabored respirations noted.
--- NOTE | 2025-01-07 01:34 | P.EN_ITS ---
Event Note Event Note: - A short run of V tach: pt had a short run of V tach on tele, no symptoms, 1gm Mg and to check mg levels monitor for further symptoms Echo Event Notes Attestations Time Spent in Patient Care: less than 15 minutes (>than 50% of time spent in counselling and/or direct pt care on unit) .
[2025-01-07] MEDS: magnesium sulfate premix 1 GM/100 ML PIGGYBACK IV ×2 (01:48→04:03)
[2025-01-07 02:02] LABS: Hematocrit 38.5 % (36-47); Hemoglobin 12.60 g/dL (11.27-16.99); Mean Corpuscular HGB Conc 32.7 g/dL (30-55); Mean Corpuscular Hemoglobin 30.8 pg (27-33); Mean Corpuscular Volume 94.1 fl (85-98); Nucleated Red Blood Cells % 0 %; Platelet Count 159 10^3/cmm (157-399); Red Blood Count 4.09 10^6/uL (3.85-5.65); White Blood Count 7.83 10^3/uL (3.29-11.43)
[2025-01-07 02:24] LABS: Alanine Aminotransferase 15 U/L (0-33); Albumin Level 3.2 g/dL (3.5-5.2); Alkaline Phosphatase 72 U/L (35-105); Anion Gap 15.2 (5-19); Aspartate Amino Transferase 13 U/L (0-32); Blood Urea Nitrogen 24 mg/dL (8-23); Calcium 8.8 mg/dL (8.5-10.5); Carbon Dioxide 23 mmol/L (22-29); Chloride 106 mmol/L (98-107); Creatinine Clr Calc Pharmacy 47.8417; Globulin 2.9 g/dL (1.3-4.6); Glucose 108 mg/dL (65-115); Osmolality Calculated 295 mOsm/kg (285-295); Potassium 4.2 mmol/L (3.5-5.1); Sodium 140 mmol/L (136-145); Total Protein 6.1 g/dL (6.6-8.7)
[2025-01-07 02:26] LABS: Magnesium 1.6 mg/dL (1.7-2.3)
[2025-01-07] MEDS: ATORVASTATIN 20 MG TABLET PO (05:43)
--- NOTE | 2025-01-07 06:10 | PC.NURSE ---
pt denies having caffeine in the last 12 hours
--- NOTE | 2025-01-07 08:01 | PC.NURSE ---
received in to room 102 from er via bed at 0730.report received.pt is alert and oriented x 4.afib at controlled rate on monitor.denies chest pain or sob at present.oriented to room environment.instructed to notify staff for any cp,sob,or for any concerns at all.pt verb understanding of instructions
[2025-01-07] MEDS: ondansetron 2 mg/ML SDV 2 mL 4 MG IVP (09:56)
[2025-01-07] MEDS: aminophylline 25 mg/mL SDV 20 mL IVP (10:03)
--- NOTE | 2025-01-07 11:16 | PC.NURSE ---
return from cardiac stress test.tolerated procedure well.no c/o chest pain.
--- NOTE | 2025-01-07 15:51 | PM.CONSULT ---
Providers/Reason For Consult Consulting Physician/Specialty*: MARYANN Rocha MD/cardiology Reason for Consult*: Patient with chest pain Requesting Physician: Dr Guero Barker Attending Physician: Brittany Barker MD Primary Care Provider: Robert Perez MD History of Present Illness History of Present Illness Archana Garcia is a 79 year old female is admitted to hospital through the emergency room, where she presented with complaints of chest pain. She had a Myocardial perfusion imaging today which was found to be abnormal. Cardiology consult is requested for further cardiac evaluation recommendations. This patient has no previous history of coronary coronary disease, myocardial infarction or congestive heart failure. She apparently has been in her baseline state of health up until last Friday when she started having pain in the left upper part of the chest. This has been a constant pain with waxing and waning. On a scale of 1-10, the intensity is graded as 4/10. She has no associated nausea, vomiting, sweating or any unusual shortness of breath. The pain has been very nagging. No other associated symptoms. She has no fever, chills or cough. She has a history of chronic atrial fibrillation and is on long-term oral anticoagulation. She also is known to have high blood pressure and chronic kidney disease.? History of dyslipidemia. No history for any CVA or peripheral artery disease. No history for any liver disease or bleeding disorders. She is being followed by a senior report developer from [place]. No other significant medical problems. She used to be followed by a biology teacher in [place]. Then she decided to have her cardiac follow-up with us because of the convenience. She was seen by one of her biology teacher several months ago. She has not had any stress test or angiograms for several years. No history of smoking abuse or alcohol abuse. Patient has a history of recent shingles Her father had myocardial infarction in his late 60s. One of his sisters had a stent placement in her early 70s. The grandparents also had heart problems in the 60s or 70s. No other 11 family history. She has no history for smoking abuse, alcohol abuse or any other substance abuse. Review of Systems Narrative: CONSTITUTIONAL: No fever or chills. EYES: No blurring of vision or other visual disturbances lately. ENT: No hoarseness of voice, auditory disturbances or sore throat. CARDIOVASCULAR: As mentioned above. RESPIRATORY: No significant cough. GASTROINTESTINAL: No hematemesis or melena. GENITOURINARY: No dysuria or hematuria. INTEGUMENTARY: No skin rashes or history of skin cancer. NEURO: No transient ischemic attacks or amaurosis. PSYCHIATRIC: No history of psychosis or major depression. HEMATOLOGIC: No bleeding disorders or significant anemia. ENDOCRINE: No history of polyuria or polydipsia. MUSCULOSKELETAL: No recent joint pain or swelling. ALLERGY/IMMUNOLOGY: As mentioned above. Medications/Allergies Home Medications ?Medication ?Instructions ?Recorded ?Confirmed ?Last Taken ?Type acetaminophen 650 mg 1,300 mg PO Q12H PRN Pain 03/24/23 01/07/25 03/23/23 History tablet,extended release colestipol 1 gram tablet 1 g PO BID 03/24/23 01/07/25 01/06/25 History diltiazem HCl 240 mg 240 mg PO DAILY 03/24/23 01/07/25 03/23/23 History capsule,extended release 24 hr ergocalciferol (vitamin D2) 1,250 1,250 mcg PO Q7D 03/24/23 01/07/25 01/01/25 History mcg (50,000 unit) capsule escitalopram oxalate 10 mg tablet 10 mg PO DAILY 03/24/23 01/07/25 03/23/23 History losartan 50 mg tablet 50 mg PO BID 03/24/23 01/07/25 03/23/23 History pantoprazole 40 mg tablet,delayed 40 mg PO DAILY 03/24/23 01/07/25 03/23/23 History release rivaroxaban 15 mg tablet (Xarelto) 15 mg PO DAILY 03/24/23 01/07/25 03/23/23 History simvastatin 10 mg tablet 10 mg PO DAILY 03/24/23 01/07/25 03/23/23 History empagliflozin 10 mg tablet 10 mg PO DAILY 04/30/24 01/07/25 Unknown History (Jardiance) furosemide 20 mg tablet 20 mg PO QAM 01/07/25 01/07/25 Unknown History potassium chloride 10 mEq 10 meq PO DAILY 01/07/25 01/07/25 Unknown History tablet,extended release Allergies Allergy/AdvReac Type Severity Reaction Status Date / Time ciprofloxacin (From Cipro) Allergy Unknown Verified 04/30/24 10:29 Latex, Natural Rubber Allergy ALGY-Hives Verified 04/30/24 10:29 Penicillins Allergy Unknown Verified 04/30/24 10:29 Current Medications Generic Name Dose Route Start Last Admin Trade Name Neel PRN Reason Stop Dose Admin Acetaminophen 650 mg 01/06/25 20:45 01/07/25 13:09 Acetaminophen 325 Mg Tablet PO 650 mg Q6H PRN Administration Mild/Mod Pain Or Temp >/= 101 Aminophylline 25 mg 01/07/25 06:08 01/07/25 10:03 Aminophylline 25 Mg/Ml Sdv 20 Ml IVP 01/08/25 06:07 25 mg Q2M PRN Administration see dose instructions Atorvastatin Calcium 20 mg 01/07/25 05:00 01/07/25 05:43 Atorvastatin 20 Mg Tablet PO 20 mg DAILY SLY Administration Escitalopram Oxalate 10 mg 01/07/25 05:00 01/07/25 05:43 Escitalopram 10 Mg Tablet PO 10 mg DAILY SLY Administration Ondansetron HCl 4 mg 01/07/25 06:08 01/07/25 09:56 Ondansetron 2 Mg/Ml Sdv 2 Ml IVP 4 mg Q2M PRN Administration NAUSEA Pantoprazole Sodium 40 mg 01/07/25 05:00 01/07/25 05:[address] 40 Mg Tablet PO 40 mg DAILY SLY Administration Rivaroxaban 15 mg 01/07/25 05:00 01/07/25 05:43 Rivaroxaban 10 Mg Tablet PO 15 mg DAILY SLY Administration PFSH Acute PFSH: Medical History Endometrial cancer Atypical chest pain Social History Smoking and tobacco/nicotine status: never used tobacco/nicotine Vitals/I&O/Wt Last Vital Signs Temp 98.0 F 01/07/25 11:49 Pulse 93 01/07/25 11:49 Resp 15 01/07/25 11:49 BP 138/69 01/07/25 11:49 Pulse Ox 96 01/07/25 11:49 O2 Del Method Room Air 01/07/25 11:49 01/07/25 01/07/25 01/07/25 06:59 14:59 22:59 Intake Total 200 / 1200 Balance 200 / 1200 Weight last 48 hrs Weight 287 lb 5 oz Weight 280 lb Physical Exam Narrative: GENERAL: The patient is alert and oriented times three. Not in any acute distress. Morbidly obese HEENT: No significant pallor, icterus or lymphadenopathy.Oral cavity: There are no mucous membrane lesions. NECK: Trachea appears to be central. No masses noted. No JVD or thyromegaly appreciated. RESPIRATORY: Chest is symmetrical. No intercostals muscle retraction or any accessory muscle activation. There is no chest wall tenderness. Breath sounds are heard bilaterally. No rales or rhonchi heard. No evidence of any consolidation. BREASTS: Deferred. HEART: The heart sounds are normal. No S3 or S4. No significant murmurs. No pericardial rub ABDOMEN: No vessel pulsations or distention. No tenderness. No organomegaly appreciated. Bowel sounds are normally heard. : Deferred. RECTAL: Deferred. LYMPHATIC: No lymphadenopathy noted in the neck. EXTREMITIES: 1+ edema both lower extremities. Chronic nonpitting MUSCULOSKELETAL: No acute joint deformities or swelling SKIN: Erythematous rashes on the anterior axillary region of the left side NEUROPSYCHIATRIC: The patient is alert and oriented x3. Appears to be in a good mood. No tremors or rigidity noted. Data 01/08/25 04:18 01/08/25 04:18 Other Labs: Laboratory Last Values WBC 7.83 10^3/uL (3.29-11.43) 01/07/25 01:42 RBC 4.09 10^6/uL (3.85-5.65) 01/07/25 01:42 Hgb 12.60 g/dL (11.27-16.99) 01/07/25 01:42 Hct 38.5 % (36-47) 01/07/25 01:42 MCV 94.1 fl (85-98) 01/07/25 01:42 MCH 30.8 pg (27-33) 01/07/25 01:42 MCHC 32.7 g/dL (30-55) 01/07/25 01:42 RDW 12.8 % (12.1-15.1) 01/07/25 01:42 Plt Count 159 10^3/cmm (157-399) 01/07/25 01:42 MPV 9.7 fL (7.4-10.4) 01/07/25 01:42 Neut % (Auto) 79.1 % 01/07/25 01:42 Lymph % (Auto) 12.8 % 01/07/25 01:42 [place] % (Auto) 6.6 % 01/07/25 01:42 Eos % (Auto) 0.8 % 01/07/25 01:42 Baso % (Auto) 0.4 % 01/07/25 01:42 Neut # (Auto) 6.20 10^3/uL (1.8-7.7) 01/07/25 01:42 Lymph # (Auto) 1.0 10^3/uL (0.8-4.8) 01/07/25 01:42 [place] # (Auto) 0.5 10^3/uL (0.2-0.9) 01/07/25 01:42 Eos # (Auto) 0.1 10^3/uL (0.0-0.8) 01/07/25 01:42 Baso # (Auto) 0.0 10^3/uL (0.0-0.1) 01/07/25 01:42 Nucleated RBC % (auto) 0 % 01/07/25 01:42 Nucleated RBCs # 0.0 /100WBC 01/07/25 01:42 Sodium 140 mmol/L (136-145) 01/07/25 01:42 Potassium 4.2 mmol/L (3.5-5.1) 01/07/25 01:42 Chloride 106 mmol/L (98-107) 01/07/25 01:42 Carbon Dioxide 23 mmol/L (22-29) 01/07/25 01:42 Anion Gap 15.2 (5-19) 01/07/25 01:42 BUN 24 mg/dL (8-23) H 01/07/25 01:42 Creatinine 1.3 mg/dL (0.5-0.9) H 01/07/25 01:42 GFR Calculation Not Reportable 01/07/25 01:42 Glucose 108 mg/dL (65-115) 01/07/25 01:42 Calculated Osmolality 295 mOsm/kg (285-295) 01/07/25 01:42 Calcium 8.8 mg/dL (8.5-10.5) 01/07/25 01:42 Magnesium 1.6 mg/dL (1.7-2.3) L 01/07/25 01:42 Total Bilirubin 0.8 mg/dL (0.15-1.2) 01/07/25 01:42 AST 13 U/L (0-32) 01/07/25 01:42 ALT 15 U/L (0-33) 01/07/25 01:42 Alkaline Phosphatase 72 U/L (35-105) 01/07/25 01:42 Troponin T Baseline 16 ng/L (0-10) H 01/06/25 16:30 Troponin T 120 Minute 13.93 ng/L (0-10) H 01/06/25 18:18 Delta Troponin T -2.07 ABS# (0-10) L 01/06/25 18:18 Troponin T Hi Sens 6Hr 14.33 ng/L (0-10) H 01/06/25 22:24 Troponin T Hi Sens 6Hr Delta -1.67 ng/L (0-12) L 01/06/25 22:24 NT-Pro-B Natriuret Pep 1083 pg/mL (0-450) H 01/06/25 16:30 Total Protein 6.1 g/dL (6.6-8.7) L 01/07/25 01:42 Albumin 3.2 g/dL (3.5-5.2) L 01/07/25 01:42 Globulin 2.9 g/dL (1.3-4.6) 01/07/25 01:42 TSH 2.91 uIU/mL (0.27-4.20) 01/06/25 22:24 A&P Assessment and plan 1. Chest pain, unspecified type: Patient had a Myocardial perfusion imaging today. She was found to have features of myocardial scarring with possible of very small area of infarction or ischemia. The ischemic burden is very low. 2. Longstanding persistent atrial fibrillation: Heart rate is under control. May continue on the current medications. She is on long-term oral anticoagulation. 3. Stage 3a chronic kidney disease: As mentioned above. 4. Dyslipidemia: Patient is on statin. This may be continued. 5. Primary hypertension: Blood pressure needs to be closely monitored. 6. Chronic diastolic heart failure: Patient is on diuretic. This may be continued 7. Herpes zoster without complication: Patient has a history of shingles. She has some rashes in the anterior axillary region on the left side. Possibility of this causing the pain in the chest cannot be excluded Plan: I will review the echocardiogram. Patient may be started on topical nitrates. In view of the underlying chronic kidney disease and possible very small area of ischemia, it may be appropriate to optimize the medical treatment at this point. I may try to optimize her medical treatment before going for invasive procedures. Thank you for the opportunity to evaluate this patient and make these recommendations PDMP PDMP Reviewed: Not Reviewed Coding Level of Care Code 67224 Diagnoses Chest pain, unspecified type R07.9 Chest pain type: unspecified Longstanding persistent atrial fibrillation I48.11 Atrial fibrillation type: longstanding persistent Stage 3a chronic kidney disease N18.31 Chronic kidney disease stage: stage 3 (moderate) Chronic kidney disease stage 3 subtype: stage 3a (GFR 45-59) Dyslipidemia E78.5 Primary hypertension I10 Hypertension type: primary hypertension Chronic diastolic heart failure I50.32 Herpes zoster without complication B02.9 Herpes zoster complications: without complications
--- NOTE | 2025-01-07 16:50 | PM.MISC ---
Miscellaneous Note Purpose of Documentation: Overnight labs and H&P reviewed. Patient underwent stress test today which showed areas of persistent decreased uptake involving the inferior and inferolateral regions with a subtle area of reversibility suggesting myocardial scarring with a small area of possible idania-infarct ischemia in the distribution of the RCA. LVEF noted to be 83%. No gross wall motion abnormalities detected. On telemetry patient is in A-fib rate controlled heart rate in the 80s. Clinically appearing to be hypervolemic. Lower extremity pitting edema noted. Crackles on exam. Lasix 40 mg IV now. Awaiting echocardiogram to a certain diastolic dysfunction. Patient reports taking Lasix 20 mg p.o. daily. Last echocardiogram from 2022 shows grade 3 diastolic dysfunction and severely elevated filling pressures. Overall clinical impression of acute on chronic diastolic CHF. Cardiology service consulted for abnormal stress test. Patient denies any known history of CAD or stents in the past.
[2025-01-07] MEDS: FUROsemide 10 mg/mL SDV 4mL 40 MG IVP (17:46)
--- NOTE | 2025-01-07 20:04 | ECG_ITS ---
[facility] Test Date: 2025-01-07 Pat Name: Archana Garcia Department: Room: 102 Gender: Female Paramedic: : 1945 Requested By: Brittany Barker Order Number: [id number] Maxine MD: Praveen Rocha M.D. Measurements Intervals [place] Rate: 94 P: 0 VT: 0 QRS: 262 QRSD: 129 T: 3 QT: 357 QTc: 449 Interpretive Statements ATRIAL FIBRILLATION RIGHT AXIS DEVIATION [QRS AXIS > 100] RIGHT BUNDLE BRANCH BLOCK [120+ ms QRS DURATION, UPRIGHT V1, 40+ ms S IN I/aVL/V4/V5/V6] Compared to ECG 01/06/2025 22:24:04 Right-axis deviation now present Ventricular premature complex(es) no longer present Aberrant conduction of supraventricular beat(s) no longer present Left-axis deviation no longer present Electronically Signed On 01-08-2025 14:28:09 CDT by Praveen Rocha M.D. [email or web address]
--- NOTE | 2025-01-07 22:49 | NMCV_ITS ---
NM rachel perf SPECT r/s* [id number] Archana Garcia Age: 79 Gender: F : 1945 Exam Date: 01/07/2025 09:11 Ordering Phys: Cipriano Stoll MD Technologist: ROXY Yeboah Exam Location: [facility] Indications: cp STRESS TEST Please see separate stress test report in [facility] for full findings IMAGE PROTOCOL Rest/Stress 1 Lexiscan Day Radiopharmaceutical Dose (mCi) Administration Site Administered by Rest: Tc-99m 10.7 IV Mary Wayne, LAMBSKIN TRIMMER Sestamibi Stress:Tc-99m 32.6 IV Mary Webbgle, LAMBSKIN TRIMMER Sestamibi Rest: 07-Jan-2025 60 Discovery 630 Stress: 07-Jan-2025 30 Discovery 630 0.4mg Lexiscan. Supine position only as patient was unable to lay prone. SPECT RESULTS Technical Quality: Good Raw Data Analysis: Normal Image Corrections: No attenuation or motion correction applied Summed Stress Score: 4 Summed Rest Score: 7 Summed Difference Score: 1 PERFUSION FINDINGS Moderate area of minimal to moderately decreased tracer uptake involving the basal and mid inferior, mid inferolateral segments. Reversibility was noted in the basal inferior region FUNCTIONAL RESULTS (calculated via Gated SPECT) Stress Image LV EF (%): 83 Stress EDV (mL):64 TID: 0.85 Stress ESV (mL):11 FUNCTIONAL FINDINGS: Segmental wall motion analysis revealing no gross wall motion abnormalities IMPRESSIONS 1. Myocardial perfusion imaging revealing areas of persistent decreased tracer uptake involving the inferior and inferolateral regions with a subtle area of reversibility suggesting myocardial scarring with a very small area possible idania-infarction ischemia in the distribution of the right coronary artery . 2. Normal LV ejection fraction of 83%. 3. LV wall motion analysis revealing no gross wall motion abnormalities. 4. Normal LV volume No similar previous studies are available for comparison Dr Praveen Rocha MD [facility] (Electronically Signed) Final Date: 07 January 2025 12:55 S
--- NOTE | 2025-01-07 22:50 | USCV_ITS ---
Archana Garcia Age: 79 Gender: F : 1945 Exam Date: 01/07/2025 11:28 Ordering Phys: Cipriano Stoll MD Technologist: Andres Jesus Exam Location: [facility] [place] Indication: atypical chest pain to rule out any regional wall motion abn BP: 138 / 69 HR: 66 Rhythm: Sinus Technical Quality: Adequate MEASUREMENTS (Male / Female) Normal Values 2D ECHO LV Diastolic Diameter PLAX 3.8 cm 4.2 - 5.9 / 3.9 - 5.3 cm IVS Diastolic Thickness 1.5 cm 0.6 - 1.0 / 0.6 - 0.9 cm IVS Systolic Thickness 1.5 cm LVPW Diastolic Thickness 1.0 cm 0.6 - 1.0 / 0.6 - 0.9 cm LVPW Systolic Thickness 1.7 cm LVOT Diameter 2.0 cm LV Ejection Fraction 2D Teich 59.9 % LV Ejection Fraction MOD 4C 72.9 % LV Ejection Fraction MOD 2C 71.2 % LV Ejection Fraction 2C AL 73.7 % LA Diameter 4.3 cm RA Systolic Volume 4C AL 49.6 ml RA Systolic Volume 4C MOD 49.8 ml LA Sys Volume AL 45.5 cm cubed LA Sys Volume Index AL 18.2 cm cubed/m squared Aorta at Sinotubular Diameter 2.4 cm IVC Diameter 1.9 cm M-MODE LA Ao Ratio MM 2.2 AV Cusp Separation MM 1.2 cm DOPPLER AV Peak Velocity 194.0 cm/s LVOT Peak Velocity 136.0 cm/s AV Area Cont Eq vti 2.8 cm squared AV Area Cont Eq pk 2.2 cm squared MV Peak Velocity 174.0 cm/s MV Area PHT 2.8 cm squared Mitral E to A Ratio 2.6 TV Peak Velocity 357.3 cm/s TR Peak Velocity 413.0 cm/s TR Peak Gradient 68.2 mmHg TR Mean Velocity 267.0 cm/s TR Mean Gradient 31.4 mmHg TR Velocity Time Integral 97.9 cm PV Peak Velocity 134.3 cm/s RV Ejection Time 0.3 s FINDINGS Left Ventricle Normal left ventricular size and systolic function, EF 74%. No regional wall motion abnormalities. Mild left ventricular hypertrophy.Grade III/IV diastolic dysfunction (restrictive filling pattern), severely elevated filling pressures. Right Ventricle Normal right ventricular size and systolic function. Right Atrium Normal right atrial size. Left Atrium Mildly increased left atrial size. IA Septum Normal appearance of the interatrial septum. Mitral Valve Moderate mitral annular calcification. Mild to moderate mitral valve regurgitation. Aortic Valve Thickened aortic valve. Aortic valve sclerosis. Tricuspid Valve Mild tricuspid valve regurgitation. Estimated pulmonary artery peak systolic pressure 53 mmHg Pulmonic Valve Trace pulmonary valve regurgitation. Pericardium No pericardial effusion. Aorta Normal aortic annulus size. IVC Inferior vena cava not visualized. CONCLUSIONS Normal left ventricular size and systolic function, EF 74%. No regional wall motion abnormalities. Mild left ventricular hypertrophy. Grade III/IV diastolic dysfunction (restrictive filling pattern), severely elevated filling pressures. Mildly increased left atrial size. Moderate mitral annular calcification. Mild to moderate mitral valve regurgitation. Aortic valve sclerosis. Mild tricuspid valve regurgitation. Estimated pulmonary artery peak systolic pressure 53 mmHg. Trace pulmonary valve regurgitation. There is no pericardial effusion. There are no intracardiac masses. Compared to the study from 03/21/2023, there may not be significant change. Dr Praveen Rocha MD [facility] (Electronically Signed) Final Date: 07 January 2025 22:21 S
[2025-01-08] VITALS: BP 127/77; PULSE 90; RESP 18; TEMP 36.9; O2SAT 96
--- NOTE | 2025-01-08 00:22 | PC.NURSE ---
Around 2144 patient HR was jumping up into 130-140's but would slowly go back down to 90's. Dr. Stoll made aware and this nurse attempted an EKG. to place orders.
[2025-01-08 04:40] LABS: Hematocrit 40.1 % (36-47); Hemoglobin 12.80 g/dL (11.27-16.99); Mean Corpuscular HGB Conc 31.9 g/dL (30-55); Mean Corpuscular Hemoglobin 30.1 pg (27-33); Mean Corpuscular Volume 94.4 fl (85-98); Nucleated Red Blood Cells % 0 %; Platelet Count 137 10^3/cmm (157-399); Red Blood Count 4.25 10^6/uL (3.85-5.65); White Blood Count 6.75 10^3/uL (3.29-11.43)
[2025-01-08 04:52] VITALS: BP 126/77; PULSE 115; RESP 11; O2SAT 92
[2025-01-08] MEDS: ATORVASTATIN 20 MG TABLET PO (04:53)
[2025-01-08] MEDS: dilTIAZem ER (24HR) 120 mg Capsule PO (04:53)
[2025-01-08 05:07] LABS: Alanine Aminotransferase 21 U/L (0-33); Albumin Level 3.2 g/dL (3.5-5.2); Alkaline Phosphatase 79 U/L (35-105); Aspartate Amino Transferase 16 U/L (0-32); Blood Urea Nitrogen 26 mg/dL (8-23); Calcium 9.2 mg/dL (8.5-10.5); Carbon Dioxide 23 mmol/L (22-29); Chloride 104 mmol/L (98-107); Globulin 3.1 g/dL (1.3-4.6); Glucose 121 mg/dL (65-115); Magnesium 1.9 mg/dL (1.7-2.3); Osmolality Calculated 292 mOsm/kg (285-295); Sodium 138 mmol/L (136-145); Total Protein 6.3 g/dL (6.6-8.7)
[2025-01-08 05:22] LABS: Creatinine Clr Calc Pharmacy 44.6943
[2025-01-08 05:23] LABS: Anion Gap 15.3 (5-19); Potassium 4.3 mmol/L (3.5-5.1)
--- NOTE | 2025-01-08 06:49 | PC.NURSE ---
Dr. Stoll at bedside to look at rash that patient was complaining was itchy. Around 0400 requested some hydrocortisone cream. Per Dr. Stoll this rash is shingles so place patient on contact precautions and orders 1000 mg valacyclovir TID.
--- NOTE | 2025-01-08 07:03 | P.EN_ITS ---
Event Note Event Note: Rash on the back: The rash seems dermatomal in distribution with cluster of small papules seems v esicles. No weeping or discharge. Associated with redness and itching. Mild pain as well Seems shingles Patient had 1 shot of shingles but did not take the second dose. Assessment: Shingles Plan: Started on valacyclovir 1 g 3 times daily for 7 days and follow-up with the vesicles to dry out. -Cover the area with gauze to avoid any direct contact. Event Notes Attestations Time Spent in Patient Care: 16 - 35 minutes (>than 50% of time sp ent in counselling and/or direct pt care on unit) .
[2025-01-08 07:15] VITALS: BP 157/85; PULSE 88; RESP 17; TEMP 36.1; O2SAT 98
--- NOTE | 2025-01-08 10:46 | PC.NURSE ---
discussed need for VTE (per quality dept) with dr almanzar....she states pt is on xaralto which is on hold at present for possible cath...and it stays in system for a period of days...so no further VTE needed.
--- NOTE | 2025-01-08 11:35 | P.DS_ITS ---
Discharge Providers Date of Admission: 01/08/25 10:09 Date of Discharge: January 08, 2025 Attending Provider at Admission: Cipriano Stoll MD Attending Provider at Discharge: Brittany Barker MD Primary Care Provider: Robert Perez MD Diagnoses at Discharge Discharge Diagnosis 1. Chest pain, unspecified type: 2. Longstanding persistent atrial fibrillation: 3. Stage 3a chronic kidney disease: 4. Dyslipidemia: 5. Primary hypertension: 6. Chronic diastolic heart failure: Reason for Visit Reason for Visit: CP SOB Hospital Course Hospital Course Archana Garcia is a 79 year old female with past medical history of hypertension, endometrial cancer s/p therapy, sleep apnea/CPAP dependent admitted with chest pain to the hospital . Trop series and EKG without acute changes. Undrwent stress test which showed areas of persistent decreased uptake involving the inferior and inferolateral regions with a subtle area of reversibility suggesting myocardial scarring with a small area of possible idania- infarct ischemia in the distribution of the RCA. She was seen by cardiology. Given CKD and risk of progression to EUGENE with very small defect on stress test and echo without any RWMA and EF > 70% decision was made to maximize medical management and defer angiogram. Additioally patient developed a vesicular rash over her back which was clinically consistent with Shingles in the t3 distribution. Highly likely that her pain may be neuropathic related to shingles. She declined addition of gabapentin to her regimen. f/up with cardiology as outpatient. She received iv lasix for acute on chronic d CHF exacerbation with preserved EF. Po dose increased at discharge. Physical Exam Narrative: General: No acute distress, AO x3 HEENT: PERRLA, pupils bilaterally equal and reactive, pallors not present Chest: Normal vesicular breath sounds, no added sounds, equal good air entry bilaterally CVS: S1-S2 regular, no murmurs, no tachycardia, no gallops, no rubs Abdomen: Soft, nontender, no organomegaly, bowel sounds present Neuro: No focal deficits, no facial deformity, AO x3, power 5/5 in all limbs Discharge Data Studies Completed and Pending Completed Studies During Hospitalization Category Date Time Status CT chest wo con [id number] Stat Cat Scan 01/06/25 19:41 Completed Cardiac Stress Test MIBI [Sestamibi Stress Test Request Exams 01/07/25 10:12 Draft ] Routine XR chest 1V portable [id number] Stat Exams 01/06/25 16:18 Completed NM rachel perf SPECT r/s* [id number] Routine Nuc Med 01/07/25 22:49 Completed CV. echo complete* [id number] Routine Ultrasound 01/07/25 22:50 Completed Pending at discharge Category Date Time Status CMP [Comprehensive Metabolic Panel] AM LABS Lab 01/09/25 04:00 Ordered Complete Blood Count w/Auto AM LABS Lab 01/09/25 04:00 Ordered Radiology Impressions Chest X-Ray 01/06/25 16:18 IMPRESSION: No acute findings. Chest CT 01/06/25 19:41 IMPRESSION: 1. No acute disease identified in the chest. 2. 2.4 cm exophytic mass in the left kidney demonstrating near soft tissue density. If not previously characterized, recommend initial characterization with nonemergent renal ultrasound, followed by renal protocol MRI if the lesion remains indeterminate or CT if MRI is contraindicated. COMMENTS: Consistent with the [employer]'s Incidental Findings Committee white paper (J Am Lore Radiol 2018): Any incidental renal lesion less than 1 cm or classified as too small to characterize, or any incidental cystic renal lesion characterized as simple-appearing, is likely benign. No follow-up imaging is recommended for these lesions per consensus recommendations based on imaging criteria. Laboratory Results WBC 6.75 10^3/uL (3.29-11.43) 01/08/25 04:18 RBC 4.25 10^6/uL (3.85-5.65) 01/08/25 04:18 Hgb 12.80 g/dL (11.27-16.99) 01/08/25 04:18 Hct 40.1 % (36-47) 01/08/25 04:18 MCV 94.4 fl (85-98) 01/08/25 04:18 MCH 30.1 pg (27-33) 01/08/25 04:18 MCHC 31.9 g/dL (30-55) 01/08/25 04:18 RDW 12.6 % (12.1-15.1) 01/08/25 04:18 Plt Count 137 10^3/cmm (157-399) L 01/08/25 04:18 MPV 10.0 fL (7.4-10.4) 01/08/25 04:18 Neut % (Auto) 76.4 % 01/08/25 04:18 Lymph % (Auto) 13.6 % 01/08/25 04:18 Johnson % (Auto) 8.1 % 01/08/25 04:18 Eos % (Auto) 1.2 % 01/08/25 04:18 Baso % (Auto) 0.4 % 01/08/25 04:18 Neut # (Auto) 5.15 10^3/uL (1.8-7.7) 01/08/25 04:18 Lymph # (Auto) 0.9 10^3/uL (0.8-4.8) 01/08/25 04:18 Johnson # (Auto) 0.6 10^3/uL (0.2-0.9) 01/08/25 04:18 Eos # (Auto) 0.1 10^3/uL (0.0-0.8) 01/08/25 04:18 Baso # (Auto) 0.0 10^3/uL (0.0-0.1) 01/08/25 04:18 Nucleated RBC % (auto) 0 % 01/08/25 04:18 Nucleated RBCs # 0.0 /100WBC 01/08/25 04:18 Sodium 138 mmol/L (136-145) 01/08/25 04:18 Potassium 4.3 mmol/L (3.5-5.1) 01/08/25 04:18 Chloride 104 mmol/L (98-107) 01/08/25 04:18 Carbon Dioxide 23 mmol/L (22-29) 01/08/25 04:18 Anion Gap 15.3 (5-19) 01/08/25 04:18 BUN 26 mg/dL (8-23) H 01/08/25 04:18 Creatinine 1.4 mg/dL (0.5-0.9) H 01/08/25 04:18 GFR Calculation Not Reportable 01/08/25 04:18 Glucose 121 mg/dL (65-115) H 01/08/25 04:18 Calculated Osmolality 292 mOsm/kg (285-295) 01/08/25 04:18 Calcium 9.2 mg/dL (8.5-10.5) 01/08/25 04:18 Magnesium 1.9 mg/dL (1.7-2.3) 01/08/25 04:18 Total Bilirubin 0.8 mg/dL (0.15-1.2) 01/08/25 04:18 AST 16 U/L (0-32) 01/08/25 04:18 ALT 21 U/L (0-33) 01/08/25 04:18 Alkaline Phosphatase 79 U/L (35-105) 01/08/25 04:18 Troponin T Baseline 16 ng/L (0-10) H 01/06/25 16:30 Troponin T 120 Minute 13.93 ng/L (0-10) H 01/06/25 18:18 Delta Troponin T -2.07 ABS# (0-10) L 01/06/25 18:18 Troponin T Hi Sens 6Hr 14.33 ng/L (0-10) H 01/06/25 22:24 Troponin T Hi Sens 6Hr Delta -1.67 ng/L (0-12) L 01/06/25 22:24 NT-Pro-B Natriuret Pep 1083 pg/mL (0-450) H 01/06/25 16:30 Total Protein 6.3 g/dL (6.6-8.7) L 01/08/25 04:18 Albumin 3.2 g/dL (3.5-5.2) L 01/08/25 04:18 Globulin 3.1 g/dL (1.3-4.6) 01/08/25 04:18 TSH 2.91 uIU/mL (0.27-4.20) 01/06/25 22:24 Vitals Last Vital Signs Temp 96.9 F L 01/08/25 07:15 Pulse 88 01/08/25 07:15 Resp 17 01/08/25 07:15 BP 157/85 01/08/25 07:15 Pulse Ox 98 01/08/25 07:15 O2 Del Method Room Air 01/08/25 07:15 Discharge Plan Discharge Patient Disposition: Home Condition: Stable Prescriptions: New valacyclovir 1 gram Tablet 1,000 mg PO TID 6 Days Qty: 18 0RF Continued Jardiance 10 mg tablet 10 mg PO DAILY losartan 50 mg tablet 50 mg PO BID diltiazem HCl 240 mg capsule,extended release 24hr 240 mg PO DAILY simvastatin 10 mg tablet 10 mg PO DAILY pantoprazole 40 mg tablet,delayed release (DR/EC) 40 mg PO DAILY ergocalciferol (vitamin D2) 1,250 mcg (50,000 unit) capsule 1,250 mcg PO Q7D Rx Instructions: ON FRIDAY colestipol 1 gram tablet 1 g PO BID escitalopram oxalate 10 mg tablet 10 mg PO DAILY Xarelto 15 mg tablet 15 mg PO DAILY acetaminophen 650 mg Tablet Extended Release 1,300 mg PO Q12H PRN (Reason: Pain) potassium chloride 10 mEq tablet extended release 10 meq PO DAILY Changed furosemide 20 mg tablet 40 mg PO QAM 15 Days Qty: 30 0RF Discharge Order = DC NOW: Discharge Order (Routine); Ordered 01/08/25 Ordered By: Brittany Barker Referrals: Robert Perez MD [Primary Care Provider, Family Practice] - 01/21/25 10:00 am Sushant Miramontes M.D [Physician, Cardiology] - 2 weeks Referral Note: hospital discharge follow up, abnromal stress test Patient Instructions: Opioid Safety, Patient Portal & Obi Instructions Discharge Attestations Time Spent in Discharge Care*: greater than 30 min Quality Metrics Clinical Quality Measures [ No reported AMI, CVA or VTE this stay] Coding Level of Care Code Acute Code for Chg Fwd Diagnoses Chest pain, unspecified type R07.9 Chest pain type: unspecified Longstanding persistent atrial fibrillation I48.11 Atrial fibrillation type: longstanding persistent Stage 3a chronic kidney disease N18.31 Chronic kidney disease stage: stage 3 (moderate) Chronic kidney disease stage 3 subtype: stage 3a (GFR 45-59) Dyslipidemia E78.5 Primary hypertension I10 Hypertension type: primary hypertension Chronic diastolic heart failure I50.32
[2025-01-08 11:43] VITALS: BP 99/57; PULSE 83; RESP 18; TEMP 35.8; O2SAT 95
--- NOTE | 2025-01-08 11:54 | PM.PN ---
Subjective Subjective: Patient started having pain in the back on the left side with some burning sensation. She had a CT scan of the chest on the second which did not reveal any evidence of pulmonary embolism or dissection. The echocardiac revealed normal LV size and ejection fraction with no significant wall motion abnormalities Medications: Medication Review Details: Current Medications Acetaminophen (Acetaminophen 325 Mg Tablet) 650 mg PO Q6H PRN PRN Reason: Mild/Mod Pain Or Temp >/= 101 Last Admin: 01/07/25 21:51 Dose: 650 mg Al Hydrox/Mg Hydrox/Simethicone (Fapy-Uhx-Jugdqkloq-Raimundo 30 Ml Udc) 15 ml PO Q6H PRN PRN Reason: INDIGESTION Aspirin (Aspirin 81 Mg Ec Tablet) 81 mg PO DAILY [facility] Last Admin: 01/08/25 04:53 Dose: 81 mg Atorvastatin Calcium (Atorvastatin 20 Mg Tablet) 20 mg PO DAILY [facility] [place] Last Admin: 01/08/25 04:53 Dose: 20 mg Bisacodyl (Bisacodyl 5 Mg Tablet) 10 mg PO DAILY PRN; Protocol PRN Reason: Constipation (see protocol) Calcium Carbonate (Calcium Carbonate 500 Mg Chew Tablet) 1,000 mg PO Q4H PRN PRN Reason: DYSPEPSI Diltiazem HCl (Diltiazem Er (24hr) 120 Mg Capsule) 120 mg PO DAILY [facility] Last Admin: 01/08/25 04:53 Dose: 120 mg Escitalopram Oxalate (Escitalopram 10 Mg Tablet) 10 mg PO DAILY [facility] [place] Last Admin: 01/08/25 04:53 Dose: 10 mg Furosemide (Furosemide 10 Mg/Ml Sdv 4ml) 40 mg IVP Q24H [facility] Last Admin: 01/07/25 17:46 Dose: 40 mg Isosorbide Mononitrate (Isosorbide Mononitrate Er 30 Mg Tablet) 30 mg PO DAILY [facility] [place] Last Admin: 01/08/25 08:24 Dose: 30 mg Morphine Sulfate (Morphine 4 Mg/Ml Sdv 1 Ml) 2 mg IVP Q4H PRN PRN Reason: SEVERE PAIN Ondansetron HCl (Ondansetron 2 Mg/Ml Sdv 2 Ml) 4 mg IVP Q8H PRN PRN Reason: vomiting, or N/V if npo Ondansetron HCl (Ondansetron 2 Mg/Ml Sdv 2 Ml) 4 mg IVP Q2M PRN PRN Reason: NAUSEA Last Admin: 01/07/25 09:56 Dose: 4 mg Pantoprazole Sodium (Pantoprazole Dr 40 Mg Tablet) 40 mg PO DAILY [facility] [place] Last Admin: 01/08/25 04:53 Dose: 40 mg Rivaroxaban (Rivaroxaban 10 Mg Tablet) 15 mg PO DAILY [facility] [place] Last Admin: 01/07/25 05:43 Dose: 15 mg Valacyclovir HCl (Valacyclovir 1,000 Mg Tablet) 1,000 mg PO TID [facility] Stop: 01/15/25 12:59 Vitals/I&O/Wt Last Vital Signs Temp 96.4 F L 01/08/25 11:43 Pulse 83 01/08/25 11:43 Resp 18 01/08/25 11:43 BP 99/57 01/08/25 11:43 Pulse Ox 95 01/08/25 11:43 O2 Del Method Room Air 01/08/25 11:43 01/07/25 01/08/25 01/08/25 22:59 06:59 14:59 Intake Total 120 / 120 240 / 360 480 / 480 Output Total 1550 / 1550 500 / 2050 Balance -1430 / -1430 -260 / -1690 480 / 480 Weight last 48 hrs Weight 282 lb 12.8 oz Weight 287 lb 5 oz Weight 280 lb Physical Exam Narrative: GENERAL: The patient is alert and oriented times three. Not in any acute distress. Morbidly obese HEENT: No significant pallor, icterus or lymphadenopathy.Oral cavity: There are no mucous membrane lesions. NECK: Trachea appears to be central. No masses noted. No JVD or thyromegaly appreciated. RESPIRATORY: Patient has rashes on the posterior chest, on the left side. Chest is symmetrical. No intercostals muscle retraction or any accessory muscle activation. There is no chest wall tenderness. Breath sounds are heard bilaterally. No rales or rhonchi heard. No evidence of any consolidation. BREASTS: Deferred. HEART: The heart sounds are normal. No S3 or S4. No significant murmurs. No pericardial rub ABDOMEN: No vessel pulsations or distention. No tenderness. No organomegaly appreciated. Bowel sounds are normally heard. : Deferred. RECTAL: Deferred. LYMPHATIC: No lymphadenopathy noted in the neck. EXTREMITIES: 1+ edema both lower extremities. Chronic nonpitting MUSCULOSKELETAL: No acute joint deformities or swelling SKIN: Erythematous rashes on the anterior axillary region of the left side NEUROPSYCHIATRIC: The patient is alert and oriented x3. Appears to be in a good mood. No tremors or rigidity noted. Data 01/08/25 04:18 01/08/25 04:18 Other Labs: Laboratory Last Values WBC 6.75 10^3/uL (3.29-11.43) 01/08/25 04:18 RBC 4.25 10^6/uL (3.85-5.65) 01/08/25 04:18 Hgb 12.80 g/dL (11.27-16.99) 01/08/25 04:18 Hct 40.1 % (36-47) 01/08/25 04:18 MCV 94.4 fl (85-98) 01/08/25 04:18 MCH 30.1 pg (27-33) 01/08/25 04:18 MCHC 31.9 g/dL (30-55) 01/08/25 04:18 RDW 12.6 % (12.1-15.1) 01/08/25 04:18 Plt Count 137 10^3/cmm (157-399) L 01/08/25 04:18 MPV 10.0 fL (7.4-10.4) 01/08/25 04:18 Neut % (Auto) 76.4 % 01/08/25 04:18 Lymph % (Auto) 13.6 % 01/08/25 04:18 Whiteside % (Auto) 8.1 % 01/08/25 04:18 Eos % (Auto) 1.2 % 01/08/25 04:18 Baso % (Auto) 0.4 % 01/08/25 04:18 Neut # (Auto) 5.15 10^3/uL (1.8-7.7) 01/08/25 04:18 Lymph # (Auto) 0.9 10^3/uL (0.8-4.8) 01/08/25 04:18 Whiteside # (Auto) 0.6 10^3/uL (0.2-0.9) 01/08/25 04:18 Eos # (Auto) 0.1 10^3/uL (0.0-0.8) 01/08/25 04:18 Baso # (Auto) 0.0 10^3/uL (0.0-0.1) 01/08/25 04:18 Nucleated RBC % (auto) 0 % 01/08/25 04:18 Nucleated RBCs # 0.0 /100WBC 01/08/25 04:18 Sodium 138 mmol/L (136-145) 01/08/25 04:18 Potassium 4.3 mmol/L (3.5-5.1) 01/08/25 04:18 Chloride 104 mmol/L (98-107) 01/08/25 04:18 Carbon Dioxide 23 mmol/L (22-29) 01/08/25 04:18 Anion Gap 15.3 (5-19) 01/08/25 04:18 BUN 26 mg/dL (8-23) H 01/08/25 04:18 Creatinine 1.4 mg/dL (0.5-0.9) H 01/08/25 04:18 GFR Calculation Not Reportable 01/08/25 04:18 Glucose 121 mg/dL (65-115) H 01/08/25 04:18 Calculated Osmolality 292 mOsm/kg (285-295) 01/08/25 04:18 Calcium 9.2 mg/dL (8.5-10.5) 01/08/25 04:18 Magnesium 1.9 mg/dL (1.7-2.3) 01/08/25 04:18 Total Bilirubin 0.8 mg/dL (0.15-1.2) 01/08/25 04:18 AST 16 U/L (0-32) 01/08/25 04:18 ALT 21 U/L (0-33) 01/08/25 04:18 Alkaline Phosphatase 79 U/L (35-105) 01/08/25 04:18 Troponin T Baseline 16 ng/L (0-10) H 01/06/25 16:30 Troponin T 120 Minute 13.93 ng/L (0-10) H 01/06/25 18:18 Delta Troponin T -2.07 ABS# (0-10) L 01/06/25 18:18 Troponin T Hi Sens 6Hr 14.33 ng/L (0-10) H 01/06/25 22:24 Troponin T Hi Sens 6Hr Delta -1.67 ng/L (0-12) L 01/06/25 22:24 NT-Pro-B Natriuret Pep 1083 pg/mL (0-450) H 01/06/25 16:30 Total Protein 6.3 g/dL (6.6-8.7) L 01/08/25 04:18 Albumin 3.2 g/dL (3.5-5.2) L 01/08/25 04:18 Globulin 3.1 g/dL (1.3-4.6) 01/08/25 04:18 TSH 2.91 uIU/mL (0.27-4.20) 01/06/25 22:24 A&P Assessment and plan 1. Chest pain, unspecified type: Most likely patient chest pain is related to the shingles involving the thoracic dermatome. She has rashes on the posterior chest and also in the anterior axillary region of the left side. 2. Longstanding persistent atrial fibrillation: Heart rate is under control. May continue on the current medications. She is on long-term oral anticoagulation. 3. Stage 3a chronic kidney disease: As mentioned above. 4. Dyslipidemia: Patient is on statin. This may be continued. 5. Primary hypertension: Blood pressure needs to be closely monitored. 6. Chronic diastolic heart failure: Patient is on diuretic. This may be continued. Currently the heart failure is compensated. 7. Herpes zoster without complication: Patient has a history of shingles. She has some rashes in the anterior axillary region on the left side. Also has rashes on the posterior chest in the same dermatomal distribution. Most likely this might be causing the chest pain. Plan: Once again I discussed the patient and the implication of the Myocardial perfusion imaging and echocardiogram. Chances of coronary ischemia causing the pain is extremely low. At this point, I may hold off on any further cardiac workup. Discussed with the Dr. Barker Management of the pain as per Dr. Barker. PDMP PDMP Reviewed: Not Reviewed Attestations Medical Necessity Statement*: Deferred to the primary Coding Level of Care Code 94246 Diagnoses Chest pain, unspecified type R07.9 Chest pain type: unspecified Longstanding persistent atrial fibrillation I48.11 Atrial fibrillation type: longstanding persistent Stage 3a chronic kidney disease N18.31 Chronic kidney disease stage: stage 3 (moderate) Chronic kidney disease stage 3 subtype: stage 3a (GFR 45-59) Dyslipidemia E78.5 Primary hypertension I10 Hypertension type: primary hypertension Chronic diastolic heart failure I50.32 Herpes zoster without complication B02.9 Herpes zoster complications: without complications
[2025-01-08 12:13] VITALS: BP 98/57; PULSE 88; RESP 20; O2SAT 95
--- NOTE | 2025-01-08 13:20 | PC.NURSE ---
discharge instructions given and explained.pt verb understanding of instructions.discharged via w/c to exit at this time.spouse to drive pt home
== END 2025-01-08 13:21 | disposition home or self-care (01) | DRG 291 ==
LOC: ER 19:29 → ER IP 19:31 → CSU 01-07 05:59
PROVIDERS: Admitting Provider Student in an Organized Health Care Education/Training Program; Emergency Provider Emergency Medicine; PCP Family Medicine; Visit Provider Student in an Organized Health Care Education/Training Program
DX: I13.0 Hypertensive heart and chronic kidney disease with heart failure and stage 1 through stage 4 chronic kidney disease, or unspecified chronic kidney disease (principal); I50.33 Acute on chronic diastolic (congestive) heart failure; I48.11 Longstanding persistent atrial fibrillation; Z68.42 Body mass index [BMI] 45.0-49.9, adult; I45.2 Bifascicular block; N18.32 Chronic kidney disease, stage 3b; B02.9 Zoster without complications; E78.5 Hyperlipidemia, unspecified; R07.9 Chest pain, unspecified; G47.30 Sleep apnea, unspecified; E66.01 Morbid (severe) obesity due to excess calories; N28.9 Disorder of kidney and ureter, unspecified; E83.42 Hypomagnesemia; F41.9 Anxiety disorder, unspecified; I95.9 Hypotension, unspecified; R07.89 Other chest pain; Z79.01 Long term (current) use of anticoagulants; Z91.199 Patient's noncompliance with other medical treatment and regimen due to unspecified reason; Z85.42 Personal history of malignant neoplasm of other parts of uterus; Z82.49 Family history of ischemic heart disease and other diseases of the circulatory system
CPT/HCPCS: 36415; 71045; 71250; 78452; 80053; 83735; 83880; 84443; 84484; 85025; 93005; 93306; 99285; A9500; G0378; J0280; J1938; J2405; J2785; J3475; J7030; J9999